=== PATIENT | female | born 1935 | race Caucasian/White ===

== ENCOUNTER 2017-02-19 19:07 | Inpatient (IN) | payer BC, MEDICARE ==
[2017-02-19] VITALS (7 sets, daily range): BP systolic 74–154; BP diastolic 41–68
[~2017-02-19] VITALS: Ht 160 cm; Wt 52.2 kg
--- NOTE | 2017-02-19 19:14 | NUR ---
pt [id number] fr home for c/o SOB x3 days, progressively getting worse w/ BG 300 in field, placed on 15 l/min O2 via NRB. AOx4, afebrile w/ resp even, labored, tachypneic,paced, tachycardic on continuous 02, pulse-ox w/ cardiac monitoring. Dr. Gunter at bedside for further eval.
--- NOTE | 2017-02-19 19:21 | NUR ---
EKG AT BEDSIDE.
[2017-02-19 19:24] LABS: BASOPHILS # (AUTO) 0.2 /CMM (0.0-0.2); EOSINOPHILS # (AUTO) 0.1 /CMM (0.0-0.7); EOSINOPHILS % (AUTO) 0.7 % (0.0-6.0); HEMATOCRIT 24 % (33-45); HEMOGLOBIN 7.8 g/dL (11.5-14.8); LYMPHOCYTES # (AUTO) 0.6 /CMM (0.8-4.8); LYMPHOCYTES % (AUTO) 4.8 % (20.0-44.0); MEAN CORPUSCULAR HEMOGLOBIN 31 PG (26.0-33.0); MEAN CORPUSCULAR HGB CONC 33 g/dl (31.0-36.0); MEAN CORPUSCULAR VOLUME 93 fL (82-100); MONOCYTES # (AUTO) 0.9 /CMM (0.1-1.30); MONOCYTES % (AUTO) 7.5 % (2.0-12.0); NEUTROPHILS # (AUTO) 10.4 /CMM (1.8-8.9); PLATELET COUNT (AUTO) 156 /CMM (150-450); RDW COEFFICIENT OF VARIATION 18.4 (11.5-15.0); RED BLOOD CELL COUNT(AUTO) 2.58 MIL/uL (4.0-5.2); WHITE BLOOD COUNT (AUTO) 12.2 K/uL (4.3-11.0)
--- NOTE | 2017-02-19 19:24 | NUR ---
CXR at bedside. PAPER MAKING MACHINE OPERATOR at bedside for placement on bipap.
--- NOTE | 2017-02-19 19:28 | NUR ---
BILL DISTRIBUTOR at bedside for breathing tx. HOB elevated, on continuous monitoring.
[2017-02-19] MEDS ORDERED: IPRATROPIUM NEB FS 0.5 MG/2.5 ML AMPUL.NEB NEB ONE (19:30)
[2017-02-19] MEDS ORDERED: ALBUTEROL FS 2.5 MG/3 ML VIAL.NEB NEB ONE (19:30)
[2017-02-19 19:35] LABS: INR 1.15 (0.87-1.13); PROTHROMBIN TIME 12.1 SECS (9.5-12.7)
[2017-02-19] MEDS ORDERED: ALBUTEROL FS 2.5 MG/3 ML VIAL.NEB ONE (19:35)
[2017-02-19] MEDS ORDERED: IPRATROPIUM NEB FS 0.5 MG/2.5 ML AMPUL.NEB ONE (19:35)
[2017-02-19 19:38] LABS: ALANINE AMINOTRANSFERASE 20 U/L (12-78); ALKALINE PHOSPHATASE 194 U/L (46-116); ASPARTATE AMINOTRANSFERASE 27 U/L (15-37); BILIRUBIN,DIRECT 0.2 mg/dL (0.0-0.2); BILIRUBIN,TOTAL 0.7 mg/dL (0.2-1.0); CALCIUM, SERUM 8.4 mg/dL (8.5-10.1); CARBON DIOXIDE 19 mmol/L (21-32); CHLORIDE 87 mmol/L (98-107); CREATININE 3.2 mg/dL (0.6-1.3); GLUCOSE 285 mg/dL (74-106); POTASSIUM 5.8 mmol/L (3.5-5.1); TOTAL PROTEIN, SERUM 6.5 g/dL (6.4-8.2)
[2017-02-19 19:40] LABS: TROPONIN I 0.088 ng/mL (0.00-0.056)
[2017-02-19 19:41] LABS: SODIUM SERUM 117 mmol/L (136-145); UREA NITROGEN, BLOOD 80 mg/dL (7-18)
--- NOTE | 2017-02-19 19:43 | NUR ---
Eric TRAY ROOM WORKER at bedside for eval.
--- NOTE | 2017-02-19 19:49 | NUR ---
ICU 259
[2017-02-19] MEDS ORDERED: NITROGLYCERIN PACKET 1 GM PACKET ONE (19:53)
[2017-02-19] MEDS ORDERED: DEXTROSE 50%-WATER 50 ML DISP.SYRIN ONE (19:53)
[2017-02-19] MEDS ORDERED: ISOS30TA6 PO (19:54)
[2017-02-19] MEDS ORDERED: FURO20TA4 PO (19:54)
[2017-02-19] MEDS ORDERED: CARV40CP PO (19:54)
[2017-02-19] MEDS ORDERED: LIRA0.6P2 SUBCUT (19:54)
[2017-02-19] MEDS ORDERED: PRAM0.253 PO (19:54)
[2017-02-19] MEDS ORDERED: DULO20CA PO (19:54)
[2017-02-19] MEDS ORDERED: INSULIN REGULAR, HUMAN 100 UNIT/ML 10 ML VIAL ONE (19:54)
[2017-02-19] MEDS ORDERED: VALS40TA4 PO (19:54)
[2017-02-19] MEDS ORDERED: ALLO100T PO (19:54)
[2017-02-19] MEDS ORDERED: CLOP75TA2 PO (19:54)
[2017-02-19] MEDS ORDERED: ATOR20TA PO (19:54)
[2017-02-19] MEDS ORDERED: LINA5TAB PO (19:54)
[2017-02-19] MEDS ORDERED: Calcium Gluconate 0.465 MEQ/ML VIAL IV ONE (19:55)
[2017-02-19] MEDS ORDERED: Calcium Gluconate 1GM/10ML 4.65 MEQ in IV D5W 50 ML IV ONE (20:00)
[2017-02-19] MEDS ORDERED: INSULIN REGULAR, HUMAN 100 UNIT/ML 10 ML VIAL IV ONE (20:00)
[2017-02-19] MEDS ORDERED: SODIUM BICARBONATE SYR 50 MEQ/50 ML DISP.SYRIN IV ONE (20:00)
[2017-02-19] MEDS ORDERED: DEXTROSE 50%-WATER 50 ML DISP.SYRIN IV ONE (20:00)
[2017-02-19] MEDS ORDERED: NITROGLYCERIN PACKET 1 GM PACKET TOP ONE (20:00)
[2017-02-19] MEDS ORDERED: FUROSEMIDE 40 MG/4 ML VIAL ONE (20:26)
[2017-02-19] MEDS ORDERED: ASPIRIN 325 MG TABLET ONE (20:26)
[2017-02-19] MEDS ORDERED: ACETAMINOPHEN 650 MG/SUPP.RECT RC PRN (20:30)
[2017-02-19] MEDS ORDERED: ONDANSETRON HCL/PF 4 MG/2 ML VIAL IVP PRN (20:30)
[2017-02-19] MEDS ORDERED: NOREPINEPHRINE 8 MG in IV D5W 500 ML IV PRN (20:30)
[2017-02-19] MEDS ORDERED: ASPIRIN 325 MG TABLET PO ONE (20:30)
[2017-02-19] MEDS ORDERED: FUROSEMIDE 20 MG/2 ML VIAL IV SCH (20:30)
--- NOTE | 2017-02-19 20:38 | NUR ---
Report given to MATTHEW Kaminski for CAILIN.
[2017-02-19] MEDS ORDERED: DEXTROSE 50%-WATER 50 ML DISP.SYRIN IV PRN (21:00)
--- NOTE | 2017-02-19 21:00 | NUR ---
DISABILITY MANAGER -REC'D PT. VIA [facility]QU[facility] FROM [facility] FOR SOB X 3 DAYS. PT. IS A&OX3, HAS LEFT C/W PACER & IS 100% V PACING ON BARRER AND TACKER. NO C/P,NO S/S OF DISTRESS NOTED. PT. WAS GIVEN A QUICK BEDBATH UPON ARRIVAL W/SKIN PICTURE TAKEN TO SACRAL AREA. DOCUMENTED. AFEBRILE. PIV'S TO LT. & RT. HANDS-BOTH PATENT TO FLUSH. PT.IS DIAPERED. NPO. BIPAP INTACT W/SETTINGS OF I:E=9/5,40%,RATE=7. WHEEZING & CRACKLES THROUGHOUT ALL LOBES NOTED. RT.YONATAN AT BS. ABD. IS UNUSUALLY LARGE/NOT FIRM/NORMAL BS'S X 4 QUAD. NON PITTING EDEMA TO BILAT.FEET/ANKLES/WITH DISCOLORATION. LIPITOR ADM. & ROCEPHIN IVPB ADM. CONT. POC.
--- NOTE | 2017-02-19 21:14 | NUR ---
PT RECEIVED ON BIPAP. PT IS AWAKE AND ALERT NO DISTRESS. PT TOLERATING BIPAP SETTINGS. WILL CONTINUE TO MONITOR.
[2017-02-19] MEDS ORDERED: ATORVASTATIN 10 MG TABLET ONE (21:23)
[2017-02-19] MEDS ORDERED: CEFTRIAXONE 1 G VIAL ONE (21:24)
[2017-02-19] MEDS: CEFTRIAXONE 1 G in IV D5W 50 ML IV SCH (21:26)
[2017-02-19] MEDS: ATORVASTATIN 10 MG TABLET PO SCH (21:27)
[2017-02-19] MEDS ORDERED: INSULIN REGULAR, HUMAN 100 UNIT/ML 3 ML VIAL ONE (23:09)
[2017-02-19] MEDS: INSULIN REGULAR, HUMAN 100 UNIT/ML 3 ML VIAL SQ PRN (23:49)
[2017-02-19] MEDS: BLOOD SUGAR DIAGNOSTIC 1 EACH STRIP IN SCH (23:50)
[2017-02-19 23:58] LABS: CALCIUM, SERUM 8.5 mg/dL (8.5-10.1); CARBON DIOXIDE 22 mmol/L (21-32); CHLORIDE 90 mmol/L (98-107); CREATININE 3.1 mg/dL (0.6-1.3); GLUCOSE 248 mg/dL (74-106); POTASSIUM 5.2 mmol/L (3.5-5.1); SODIUM SERUM 121 mmol/L (136-145); UREA NITROGEN, BLOOD 78 mg/dL (7-18)
[2017-02-20] VITALS (36 sets, daily range): BP systolic 99–131; BP diastolic 32–82
[2017-02-20 00:05] LABS: TROPONIN I 0.086 ng/mL (0.00-0.056)
[2017-02-20 05:03] LABS: BASOPHILS % (AUTO) 0.2 % (0.0-2.0); HEMATOCRIT 21 % (33-45); HEMOGLOBIN 7.2 g/dL (11.5-14.8); LYMPHOCYTES # (AUTO) 0.7 /CMM (0.8-4.8); LYMPHOCYTES % (AUTO) 7.2 % (20.0-44.0); MEAN CORPUSCULAR HEMOGLOBIN 32 PG (26.0-33.0); MEAN CORPUSCULAR HGB CONC 34 g/dl (31.0-36.0); MEAN CORPUSCULAR VOLUME 92 fL (82-100); MONOCYTES # (AUTO) 0.9 /CMM (0.1-1.30); MONOCYTES % (AUTO) 9.1 % (2.0-12.0); NEUTROPHILS # (AUTO) 7.9 /CMM (1.8-8.9); NEUTROPHILS % (AUTO) 83.5 % (43.0-81.0); PLATELET COUNT (AUTO) 143 /CMM (150-450); RDW COEFFICIENT OF VARIATION 19.4 (11.5-15.0); RED BLOOD CELL COUNT(AUTO) 2.29 MIL/uL (4.0-5.2); WHITE BLOOD COUNT (AUTO) 9.4 K/uL (4.3-11.0)
[2017-02-20 05:26] LABS: ALANINE AMINOTRANSFERASE 20 U/L (12-78); ALBUMIN 2.6 g/dL (3.4-5.0); ALKALINE PHOSPHATASE 165 U/L (46-116); ASPARTATE AMINOTRANSFERASE 24 U/L (15-37); BILIRUBIN,TOTAL 0.4 mg/dL (0.2-1.0); CALCIUM, SERUM 8.5 mg/dL (8.5-10.1); CARBON DIOXIDE 25 mmol/L (21-32); CHLORIDE 92 mmol/L (98-107); CREATININE 2.9 mg/dL (0.6-1.3); GLUCOSE 132 mg/dL (74-106); MAGNESIUM 1.7 mg/dL (1.8-2.4); POTASSIUM 5.2 mmol/L (3.5-5.1); SODIUM SERUM 124 mmol/L (136-145); TOTAL PROTEIN, SERUM 6.2 g/dL (6.4-8.2)
[2017-02-20 05:33] LABS: UREA NITROGEN, BLOOD 86 mg/dL (7-18)
[2017-02-20 05:34] LABS: THYROID STIMULATING HORMONE 1.188 uIU/mL (0.358-3.74)
[2017-02-20] MEDS: INSULIN REGULAR, HUMAN 100 UNIT/ML 3 ML VIAL SQ PRN ×3 (06:13→18:06)
[2017-02-20] MEDS: BLOOD SUGAR DIAGNOSTIC 1 EACH STRIP IN SCH ×4 (06:14→23:01)
--- NOTE | 2017-02-20 07:20 | NUR ---
ICU INITIAL NOTE RECEIVED PT IN ASLEEP, EASY TO AROUSE, ABLE TO ANSWER QUESTIONS, FOLLOWS COMMANDS AT TIMES, PT IS ON BEDSIDE MONITOR SHOWING SR W/ 100% VPACING @ 80'S BPM, NO C/O OF DISCOMFORT OR CHEST PAIN AT THIS TIME, PT IS RA, SATING WELL, NO S/S OF RESP.DISTRESS OR SOB NOTED AT THIS TIME, PT HAS L HAND #18G,SL, R HAND #20G,SL,C/D/I/PATENT, FLUSHING WELL, NO S/S OF INFECTION/ INFILTRATION NOTED AT THIS TIME, PT IS NOTED WITH SKIN ISSUES AT THIS TIME, PT IS CURRENTLY NPO AT THIS TIME, ALL NEEDS MET AT THIS TIME, ALL SAFETY MEASURES IN PLACE AT ALL TIMES, CALL LIGHT WITHIN EASY REACH, WILL MONITOR PT CLOSELY FOR CHANGES
[2017-02-20] MEDS: METOPROLOL TARTRATE 25 MG TABLET PO SCH ×2 (09:00→21:00)
[2017-02-20] MEDS ORDERED: PANTOPRAZOLE 40 MG VIAL IV SCH (09:00)
[2017-02-20] MEDS: ISOSORBIDE MONONITRATE (30MG) 30 MG TAB.SR.24H PO SCH (09:00)
--- NOTE | 2017-02-20 09:25 | NUR ---
ICU NOTE DR. MACHADO MADE ROUNDS, AWARE OF ALL LABS AND RESULTS, NO NEW ORDERS AT THIS TIME.
--- NOTE | 2017-02-20 09:26 | NUR ---
ICU NOTE DR. PALOMO MADE ROUNDS, AWARE OF ALL LABS AND RESULTS, NEW ORDERS ACK
[2017-02-20] MEDS ORDERED: Magnesium 1GM/D5W 100ML PREMIX 100 ML IV SCH (09:30)
[2017-02-20] MEDS: FAMOTIDINE/PF INJ 20 MG/2 ML VIAL IV SCH ×2 (09:32→22:44)
[2017-02-20] MEDS: DULOXETINE HCL 20 MG CAPSULE.DR PO SCH (09:32)
[2017-02-20] MEDS: ASPIRIN 325 MG TABLET PO SCH (09:32)
[2017-02-20] MEDS: CLOPIDOGREL BISULFATE 75 MG TABLET PO SCH (09:32)
[2017-02-20 09:46] LABS: TROPONIN I 0.074 ng/mL (0.00-0.056)
[2017-02-20] MEDS: Magnesium 1GM/D5W 100ML PREMIX 100 ML IV SCH ×2 (09:58→11:25)
[2017-02-20 12:55] LABS: BASOPHILS % (AUTO) 0.1 % (0.0-2.0); EOSINOPHILS # (AUTO) 0.1 /CMM (0.0-0.7); EOSINOPHILS % (AUTO) 1.4 % (0.0-6.0); HEMATOCRIT 22 % (33-45); HEMOGLOBIN 7.2 g/dL (11.5-14.8); LYMPHOCYTES # (AUTO) 0.4 /CMM (0.8-4.8); LYMPHOCYTES % (AUTO) 4.1 % (20.0-44.0); MEAN CORPUSCULAR HEMOGLOBIN 31 PG (26.0-33.0); MEAN CORPUSCULAR HGB CONC 33 g/dl (31.0-36.0); MEAN CORPUSCULAR VOLUME 93 fL (82-100); MONOCYTES # (AUTO) 0.8 /CMM (0.1-1.30); MONOCYTES % (AUTO) 7.7 % (2.0-12.0); NEUTROPHILS % (AUTO) 86.7 % (43.0-81.0); PLATELET COUNT (AUTO) 144 /CMM (150-450); RDW COEFFICIENT OF VARIATION 19.4 (11.5-15.0); RED BLOOD CELL COUNT(AUTO) 2.34 MIL/uL (4.0-5.2); WHITE BLOOD COUNT (AUTO) 10.4 K/uL (4.3-11.0)
--- NOTE | 2017-02-20 13:30 | NUR ---
ICU NOTE [employer] REP CAME AND DID DEVICE CHECK, REP WILL CONTACT DR. PALOMO WITH RESULTS AND CHANGES
--- NOTE | 2017-02-20 13:49 | NUR ---
WOUND CARE CONSULT: PT PRESENTS WITH SACRAL INTACT DEEP TISSUE INJURY WELL DISTAL SACRAL STAGE 2 ULCER, PRESENT ON ADMISSION. PT NOTED TO HAVE RESOLVING EDEMA TO LOWER EXTREMITIES. FIRST STEP MATTRESS ORDERED. ALL SKIN PROTECTION AND WOUND RECOMMENDATIONS DISCUSSED WITH NURSING STAFF. WILL SEE PRN. TURK IN AGREEMENT WITH PLAN OF CARE. Addendum: 02/20/17 at 1351 by KARTHIKEYAN MORENO WNDNU Amended: Links added.
--- NOTE | 2017-02-20 14:15 | NUR ---
ICU NOTE URINE COLLECTED AND SENT TO LAB
[2017-02-20 14:53] LABS: CREATININE, URINE 44.2 MG/DL (30.0-125.0); URINE TOTAL PROTEIN 20.5 mg/dL (0-11.9)
[2017-02-20] MEDS: Z GUARD REMEDY 2 OZ OINT TP PRN (16:37)
[2017-02-20] MEDS: HYDROGEL DRESSING 90 GM TUBE TP PRN (16:37)
[2017-02-20] MEDS: Z GUARD REMEDY 2 OZ OINT TP SCH (16:37)
[2017-02-20] MEDS: HYDROGEL DRESSING 90 GM TUBE TP SCH (16:37)
--- NOTE | 2017-02-20 17:50 | NUR ---
ICU NOTE KCI MATTRESS NOT PUT ON BECAUSE OF PT SAFETY, PT GETS OUT OF BED AND USES BEDSIDE COMMODE.
--- NOTE | 2017-02-20 18:28 | NUR ---
ICU NOTE SPOKE TO ANDREW SCHILLING NP REGARDING LOWER EXTREMITY US RESULTS, ORDERED HEPARIN SUBQ 5000U Q12H, INFORMED HER OF LABS, OKAY TO GIVE, IRON PANEL ORDERED WELL
[2017-02-20] MEDS: HEPARIN SODIUM, PORCINE 5000 UNITS/1 ML VIAL SQ SCH (18:31)
--- NOTE | 2017-02-20 19:44 | NUR ---
MANUFACTURING TEST TECHNICIAN. RECEIVED THE PT WITH TACHYPNEIC, RATE IS 35, PT C/O SHORTNESS OF BREATH. PT GETTING OXYGEN 2L NC. CALLED YARN SPINNER KAREN. NEW ORDER RECEIVED. SHRIMP PEELING MACHINE TENDER SHOWING V PACING. HOB ELEVATED. IV RT HAND 18G, WILL CONTINUE TO MONITOR VITALS.
--- NOTE | 2017-02-20 19:47 | NUR ---
LINEN GRADER. CALLED RT MCNULTY FOR ABG AT 193.
--- NOTE | 2017-02-20 20:09 | NUR ---
RT HAMLET AT BED SIDE TRYING TO TROW ABG. PT IS VERY HAD STICK. BREATHING WITH ACCESSARY MUSCLES. BIPAP STARTED 16/, RATE 8, FIO2 35%. WILL CONTINUE TO MONITOR.
[2017-02-20] MEDS: CEFTRIAXONE 1 G in IV D5W 50 ML IV SCH (22:43)
[2017-02-20] MEDS: ATORVASTATIN 10 MG TABLET PO SCH (22:43)
[2017-02-21] VITALS (46 sets, daily range): BP systolic 94–135; BP diastolic 47–86
--- NOTE | 2017-02-21 03:24 | NUR ---
SAUSAGE LINKER. AM CARE, ORAL CARE, BED BATH GIVEN. LINEN CHANGED. REMAINING SAME BIPAP SETTINGS TOLERATED WELL. SAT 99%. HOB ELEVATED. TURN AND REPOSITION Q2H. WILL CONTINUE TO MONITOR VITALS.
[2017-02-21 04:44] LABS: BASOPHILS % (AUTO) 0.3 % (0.0-2.0); EOSINOPHILS # (AUTO) 0.1 /CMM (0.0-0.7); EOSINOPHILS % (AUTO) 0.9 % (0.0-6.0); HEMATOCRIT 21 % (33-45); HEMOGLOBIN 7.1 g/dL (11.5-14.8); LYMPHOCYTES # (AUTO) 0.6 /CMM (0.8-4.8); LYMPHOCYTES % (AUTO) 5.8 % (20.0-44.0); MEAN CORPUSCULAR HEMOGLOBIN 31 PG (26.0-33.0); MEAN CORPUSCULAR HGB CONC 34 g/dl (31.0-36.0); MEAN CORPUSCULAR VOLUME 93 fL (82-100); MONOCYTES # (AUTO) 0.8 /CMM (0.1-1.30); MONOCYTES % (AUTO) 8.1 % (2.0-12.0); NEUTROPHILS # (AUTO) 8.8 /CMM (1.8-8.9); NEUTROPHILS % (AUTO) 84.9 % (43.0-81.0); PLATELET COUNT (AUTO) 165 /CMM (150-450); RDW COEFFICIENT OF VARIATION 19.7 (11.5-15.0); RED BLOOD CELL COUNT(AUTO) 2.27 MIL/uL (4.0-5.2); WHITE BLOOD COUNT (AUTO) 10.4 K/uL (4.3-11.0)
[2017-02-21 05:17] LABS: CALCIUM, SERUM 8.4 mg/dL (8.5-10.1); CARBON DIOXIDE 24 mmol/L (21-32); CHLORIDE 91 mmol/L (98-107); CREATININE 3.2 mg/dL (0.6-1.3); GLUCOSE 191 mg/dL (74-106); MAGNESIUM 2.2 mg/dL (1.8-2.4); PHOSPHORUS 4.2 mg/dL (2.5-4.9); POTASSIUM 5.4 mmol/L (3.5-5.1); SODIUM SERUM 122 mmol/L (136-145)
[2017-02-21] MEDS: BLOOD SUGAR DIAGNOSTIC 1 EACH STRIP IN SCH ×3 (05:17→18:09)
[2017-02-21 05:20] LABS: UREA NITROGEN, BLOOD 87 mg/dL (7-18)
[2017-02-21] MEDS: INSULIN REGULAR, HUMAN 100 UNIT/ML 3 ML VIAL SQ PRN ×3 (05:20→18:50)
[2017-02-21 05:21] LABS: IRON, SERUM 13 ug/dl (50-175); TOTAL IRON BINDING CAPACITY 158 ug/dl (250-450)
[2017-02-21 06:18] LABS: EOSINOPHILS % (MANUAL) 2 % (0-4); LYMPHOCYTES % (MANUAL) 3 % (16-48); MONOCYTES % (MANUAL) 4 % (0-11.0); NEUTROPHILS % (MANUAL) 91 (42-76)
--- NOTE | 2017-02-21 07:44 | NUR ---
WT NOT TAKEN. BED SCALE NOT WORKING
--- NOTE | 2017-02-21 08:30 | NUR ---
PT TRANSFERRED ONTO NEW BED. WEIGH 138 LBS. REPORTED TO CHARGE NURSE.
--- NOTE | 2017-02-21 08:50 | NUR ---
PT STATES SHR NEEDS BREATHING TX, NO ORDER AT THIS TIME. DR MACHADO NOTIFIED MEANWHILE PT PLACED ON BIPAP WITH PREVIOUS SETTINGS. SAT 96%
[2017-02-21] MEDS: HEPARIN SODIUM, PORCINE 5000 UNITS/1 ML VIAL SQ SCH ×2 (08:55→20:59)
[2017-02-21] MEDS: ASPIRIN 325 MG TABLET PO SCH (08:55)
[2017-02-21] MEDS: FAMOTIDINE/PF INJ 20 MG/2 ML VIAL IV SCH ×2 (08:55→20:57)
[2017-02-21] MEDS: ISOSORBIDE MONONITRATE (30MG) 30 MG TAB.SR.24H PO SCH (08:55)
[2017-02-21] MEDS: DULOXETINE HCL 20 MG CAPSULE.DR PO SCH (08:55)
[2017-02-21] MEDS: CLOPIDOGREL BISULFATE 75 MG TABLET PO SCH (08:55)
[2017-02-21] MEDS: METOPROLOL TARTRATE 25 MG TABLET PO SCH ×2 (08:56→20:58)
[2017-02-21] MEDS: HYDROGEL DRESSING 90 GM TUBE TP PRN (08:57)
[2017-02-21] MEDS: Z GUARD REMEDY 2 OZ OINT TP PRN (08:57)
[2017-02-21] MEDS: HYDROGEL DRESSING 90 GM TUBE TP SCH (08:58)
[2017-02-21] MEDS: Z GUARD REMEDY 2 OZ OINT TP SCH (08:58)
[2017-02-21] MEDS ORDERED: BUMETANIDE INJ 16 MG in IV NS 0.9% 16 ML IV ONE (09:00)
--- NOTE | 2017-02-21 09:15 | NUR ---
BUMEX GTT INITIATED K 5.2 WILL RECHECK BMP POST BUMEX GTT.
--- NOTE | 2017-02-21 17:00 | NUR ---
BEST ATTEMPT IS MADE TO OBTAIN URINE CLEAN CATCH, SPECIMEN SENT.
[2017-02-21 18:50] LABS: CALCIUM, SERUM 8.3 mg/dL (8.5-10.1); CARBON DIOXIDE 23 mmol/L (21-32); CHLORIDE 89 mmol/L (98-107); CREATININE 3.5 mg/dL (0.6-1.3); GLUCOSE 200 mg/dL (74-106); POTASSIUM 5.2 mmol/L (3.5-5.1); SODIUM SERUM 121 mmol/L (136-145)
[2017-02-21 18:57] LABS: APPEARANCE,URINE CLEAR (CLEAR); BILIRUBIN,URINE NEGATIVE (NEGATIVE); BLOOD, URINE NEGATIVE Ery/uL (NEGATIVE); COLOR,URINE YELLOW (YELLOW); KETONES,URINE NEGATIVE (NEGATIVE); LEUKOCYTE ESTERASE ,URINE NEGATIVE (NEGATIVE); NITRITE, URINE NEGATIVE (NEGATIVE); PH,URINE 5.5 (5.0-8.0); PROTEIN,URINE NEGATIVE (NEGATIVE); UGLUCOSE NEGATIVE (NEGATIVE); UROBILINOGEN,URINE 0.2 EU/dL (0.2)
[2017-02-21 18:59] LABS: UREA NITROGEN, BLOOD 92 mg/dL (7-18)
--- NOTE | 2017-02-21 19:00 | NUR ---
LAB REPORTED BUN 92, WILL NOTIFY DR MORALES.
[2017-02-21 19:56] LABS: CREATININE, URINE 38.2 MG/DL (30.0-125.0); URINE TOTAL PROTEIN 12.4 mg/dL (0-11.9)
--- NOTE | 2017-02-21 20:00 | NUR ---
ADMINISTRATIVE LIBRARY ASSISTANT - NOTES - RECEIVED PT IN BED, ALERT AND ORIENTED X4, WEAK BLE. PT IS V PACING W PACEMAKER HR 70S-80S PT IS ON 2L NC TOLERATING WELL, PT IS COMPLAINING OF SORE THROAT WILL ASK MD FOR LOZENGE. PT IS ON CARDIAC AND CONSISTENT CARB DIET, ACCUCHECK Q6, ABLE TO FEED SELF. PT HAS L HAND 18G AND R HAND 20G IV, WHICH IS TENDER, WILL ASK FOR MIDLINE IV. WILL CONTINUE TO MONITOR
--- NOTE | 2017-02-21 20:20 | NUR ---
DR WISEMAN NOTIFIED OF CRITICAL LAB VALUES, BUN 92, AND OBTAINED ORDER FOR LOZENGE CEPACOL FOR PT SORE THROAT
--- NOTE | 2017-02-21 20:30 | NUR ---
PT ASKED TO GET UP TO GO TO THE BEDSIDE COMMODE TO URINATE, I HELPED THE PT TO THE COMMODE BUT SHE WAS VERY WEAK ON HER FEET. WHEN I PLACED THE PT BACK IN BED, HER O2SAT DROPPED TO 92 AND SHE WAS SOB, I PLACED HER BACK ON O2 NASAL CANNULA AND SHE WENT BACK UP TO 100%
[2017-02-21] MEDS: CEFTRIAXONE 1 G in IV D5W 50 ML IV SCH (20:57)
[2017-02-21 21:03] LABS: EOSINOPHIL,URINE None Seen
[2017-02-21] MEDS: ATORVASTATIN 10 MG TABLET PO SCH (21:03)
[2017-02-21] MEDS: MENTHOL/CETYLPYRD (CEPACOL) 1 LOZ LOZENGE PO PRN (21:19)
--- NOTE | 2017-02-21 23:20 | NUR ---
PT ASKED IF SHE WANTS A BATH TONIGHT, SHE REFUSED, SAYING SHE HAD A BATH AT APPROX 1800 AND SHE WANTS TO SLEEP, I TOLD HER IF SHE WANTS A BATH THAT I WILL DO IT FOR HER WHEN SHE WANTS
[2017-02-22] VITALS (38 sets, daily range): BP systolic 98–145; BP diastolic 41–97
[2017-02-22] MEDS: BLOOD SUGAR DIAGNOSTIC 1 EACH STRIP IN SCH ×5 (00:06→23:55)
[2017-02-22] MEDS: INSULIN REGULAR, HUMAN 100 UNIT/ML 3 ML VIAL SQ PRN ×4 (00:09→18:05)
--- NOTE | 2017-02-22 03:21 | NUR ---
PT URINATED IN BED MUÑOZ AND THE URINE SPILLED, SO I GAVE HER A FULL BATH AND AND CHANGED ALL OF HER SHEETS
--- NOTE | 2017-02-22 04:17 | NUR ---
PT ACCURATELY WEIGHED 130.5 LBS. PT STOOD UP IN ORDER TO ZERO BED FOR AN ACCURATE WEIGHT. BED ZEROED WITH BOTTOM SHEET, 1 TOMASA, TOP SHEET AND ONE PILLOW AND KCI MATTRESS.
[2017-02-22 05:13] LABS: BASOPHILS % (AUTO) 0.2 % (0.0-2.0); EOSINOPHILS # (AUTO) 0.2 /CMM (0.0-0.7); EOSINOPHILS % (AUTO) 1.9 % (0.0-6.0); LYMPHOCYTES # (AUTO) 0.6 /CMM (0.8-4.8); LYMPHOCYTES % (AUTO) 6.3 % (20.0-44.0); MEAN CORPUSCULAR HEMOGLOBIN 31 PG (26.0-33.0); MEAN CORPUSCULAR HGB CONC 33 g/dl (31.0-36.0); MEAN CORPUSCULAR VOLUME 93 fL (82-100); MONOCYTES # (AUTO) 0.9 /CMM (0.1-1.30); MONOCYTES % (AUTO) 9.8 % (2.0-12.0); NEUTROPHILS # (AUTO) 7.7 /CMM (1.8-8.9); NEUTROPHILS % (AUTO) 81.8 % (43.0-81.0); PLATELET COUNT (AUTO) 194 /CMM (150-450); RDW COEFFICIENT OF VARIATION 19.8 (11.5-15.0); RED BLOOD CELL COUNT(AUTO) 2.08 MIL/uL (4.0-5.2); WHITE BLOOD COUNT (AUTO) 9.4 K/uL (4.3-11.0)
[2017-02-22 05:27] LABS: ALANINE AMINOTRANSFERASE 20 U/L (12-78); ALBUMIN 2.3 g/dL (3.4-5.0); ALKALINE PHOSPHATASE 165 U/L (46-116); ASPARTATE AMINOTRANSFERASE 25 U/L (15-37); BILIRUBIN,TOTAL 0.4 mg/dL (0.2-1.0); CALCIUM, SERUM 8.5 mg/dL (8.5-10.1); CARBON DIOXIDE 21 mmol/L (21-32); CHLORIDE 91 mmol/L (98-107); CREATININE 3.5 mg/dL (0.6-1.3); GLUCOSE 149 mg/dL (74-106); MAGNESIUM 2.1 mg/dL (1.8-2.4); PHOSPHORUS 4.5 mg/dL (2.5-4.9); SODIUM SERUM 123 mmol/L (136-145); TOTAL PROTEIN, SERUM 5.6 g/dL (6.4-8.2)
[2017-02-22 05:28] LABS: UREA NITROGEN, BLOOD 95 mg/dL (7-18)
[2017-02-22 05:42] LABS: HEMATOCRIT 19 % (33-45); HEMOGLOBIN 6.4 g/dL (11.5-14.8)
--- NOTE | 2017-02-22 06:10 | NUR ---
CRITICAL LABS HEMOGLOBIN AND HEMATOCRIT NOTED, 6.4 AND 19. EPIC CALLED, AWAITING CALL BACK
[2017-02-22 06:12] LABS: EOSINOPHILS % (MANUAL) 1 % (0-4); LYMPHOCYTES % (MANUAL) 11 % (16-48); MONOCYTES % (MANUAL) 11 % (0-11.0); NEUTROPHILS % (MANUAL) 77 (42-76)
--- NOTE | 2017-02-22 06:40 | NUR ---
BETSY RICHARDSON CALLED AGAIN TO REPORT CRITICAL LAB RESULTS, AWAITING CALL BACK
[2017-02-22] MEDS ORDERED: BUMETANIDE INJ 16 MG in IV NS 0.9% 16 ML IV ONE (08:00)
[2017-02-22] MEDS: DULOXETINE HCL 20 MG CAPSULE.DR PO SCH (09:00)
--- NOTE | 2017-02-22 09:00 | NUR ---
PRBC IN PROGRESS, VSS.
[2017-02-22] MEDS: CLOPIDOGREL BISULFATE 75 MG TABLET PO SCH (09:22)
[2017-02-22] MEDS: ASPIRIN 325 MG TABLET PO SCH (09:22)
[2017-02-22] MEDS: FAMOTIDINE/PF INJ 20 MG/2 ML VIAL IV SCH ×2 (09:23→21:01)
[2017-02-22] MEDS: ISOSORBIDE MONONITRATE (30MG) 30 MG TAB.SR.24H PO SCH (09:23)
[2017-02-22] MEDS: METOPROLOL TARTRATE 25 MG TABLET PO SCH ×2 (09:24→21:02)
[2017-02-22] MEDS: LACTULOSE 10 G/15 ML UDC (PYXIS) PO PRN (09:25)
[2017-02-22] MEDS: HEPARIN SODIUM, PORCINE 5000 UNITS/1 ML VIAL SQ SCH ×2 (09:31→21:01)
[2017-02-22] MEDS: Z GUARD REMEDY 2 OZ OINT TP SCH (09:46)
[2017-02-22] MEDS: HYDROGEL DRESSING 90 GM TUBE TP SCH (09:46)
--- NOTE | 2017-02-22 10:00 | NUR ---
CLARTIFED WITH DR PIZARRO HE WANTS ONE NOTE UNIT OF PRBC, TWO UNITS TOTAL
--- NOTE | 2017-02-22 12:00 | NUR ---
PRBC COMPLETED VSS, PT AFEBRILE.
--- NOTE | 2017-02-22 13:00 | NUR ---
LAVONNE HERE TO SEE PT. UPDATED THAT PT NOTED TO HAVE OCCASIONAL RALES, DRY COUGH, NO SOB. OK TO CANCEL THE SECOND UNIT. LAB NOTIFIED.
[2017-02-22] MEDS: SOD FERRIC GLUC 125 MG in IV NS 0.9% 100 ML IV SCH (14:18)
[2017-02-22 15:03] LABS: ABG OXYGEN SATURATION 93.9 % (92.0-98.5); ABG PCO2 32.4 mmHg (35.0-45.0); ABG PH 7.411 (7.350-7.450); MetHb 0.5 % (0.0-1.5); O2Hb 92.5 % (94.0-97.0); PEEP,BG 5 cm H2O; SITE, ABG Left Radial; VENT MODE, BG ST 16/5 R8 35%
--- NOTE | 2017-02-22 20:00 | NUR ---
Received patient on bed A/O X 4.VS stable.V- paced 80's.Noted patient with sob on exertion. O2 2LNC in progress sating 96%.Reinforced teaching patient on 1000 ml fluid restriction/day. I's and O's monitored closely.Bumex drip infusing to killian midline.Site intact.Denies pain.Turned and repositioned.Continue monitoring.
[2017-02-22] MEDS: CEFTRIAXONE 1 G in IV D5W 50 ML IV SCH (21:01)
[2017-02-22] MEDS: ATORVASTATIN 10 MG TABLET PO SCH (22:30)
[2017-02-23] VITALS (25 sets, daily range): BP systolic 118–148; BP diastolic 27–95
--- NOTE | 2017-02-23 | NUR ---
Patient resting.VS stable.Denies any discomfort.Turned and repositioned.
[2017-02-23] MEDS: MENTHOL/CETYLPYRD (CEPACOL) 1 LOZ LOZENGE PO PRN ×3 (02:41→20:59)
[2017-02-23 04:35] LABS: BASOPHILS % (AUTO) 0.1 % (0.0-2.0); EOSINOPHILS # (AUTO) 0.3 /CMM (0.0-0.7); EOSINOPHILS % (AUTO) 3.6 % (0.0-6.0); HEMATOCRIT 25 % (33-45); HEMOGLOBIN 8.2 g/dL (11.5-14.8); LYMPHOCYTES # (AUTO) 0.7 /CMM (0.8-4.8); LYMPHOCYTES % (AUTO) 6.9 % (20.0-44.0); MEAN CORPUSCULAR HEMOGLOBIN 30 PG (26.0-33.0); MEAN CORPUSCULAR HGB CONC 33 g/dl (31.0-36.0); MEAN CORPUSCULAR VOLUME 90 fL (82-100); MONOCYTES # (AUTO) 1.2 /CMM (0.1-1.30); NEUTROPHILS # (AUTO) 7.2 /CMM (1.8-8.9); NEUTROPHILS % (AUTO) 76.4 % (43.0-81.0); PLATELET COUNT (AUTO) 211 /CMM (150-450); RDW COEFFICIENT OF VARIATION 21.8 (11.5-15.0); RED BLOOD CELL COUNT(AUTO) 2.74 MIL/uL (4.0-5.2); WHITE BLOOD COUNT (AUTO) 9.5 K/uL (4.3-11.0)
[2017-02-23 04:54] LABS: CALCIUM, SERUM 8.6 mg/dL (8.5-10.1); CARBON DIOXIDE 21 mmol/L (21-32); CHLORIDE 93 mmol/L (98-107); CREATININE 3.7 mg/dL (0.6-1.3); GLUCOSE 148 mg/dL (74-106); MAGNESIUM 2.1 mg/dL (1.8-2.4); PHOSPHORUS 4.8 mg/dL (2.5-4.9); POTASSIUM 4.5 mmol/L (3.5-5.1); SODIUM SERUM 125 mmol/L (136-145)
[2017-02-23 04:57] LABS: UREA NITROGEN, BLOOD 99 mg/dL (7-18)
[2017-02-23] MEDS: BLOOD SUGAR DIAGNOSTIC 1 EACH STRIP IN SCH ×4 (05:54→23:55)
[2017-02-23] MEDS: INSULIN REGULAR, HUMAN 100 UNIT/ML 3 ML VIAL SQ PRN ×4 (05:57→23:58)
--- NOTE | 2017-02-23 06:00 | NUR ---
Patient remains with sob when talking and with exertion.VS stable.Voiding well.Bathed and Complete linens changed.Turned and repositioned.No bm noted during the shift.Will endorse to am shift for stool collection.Blood sugar monitored and covered with ss.
--- NOTE | 2017-02-23 07:35 | NUR ---
STANDPIPE TENDER RECEIVED PATIENT FROM THE PREVIOUS SHIFT. PATIENT IS IN BED. RESTING COMFORTABLY. NO ACUTE DISTRESS NOTED. EVEN AND NON LABORED BREATHING PATTERN. ALERT AND ORIENTED X 4. AFEBRILE.2L NC AT THIS TIME. TURNED AND REPOSITIONED FOR COMFORT AND WOUND PREVENTION. WILL CONTINUE TO MONITOR AND PROVIDE CARE.
[2017-02-23] MEDS ORDERED: BUMETANIDE INJ 16 MG in IV NS 0.9% 16 ML IV ONE (09:00)
[2017-02-23] MEDS: ASPIRIN 325 MG TABLET PO SCH (09:33)
[2017-02-23] MEDS: FAMOTIDINE/PF INJ 20 MG/2 ML VIAL IV SCH ×2 (09:33→21:37)
[2017-02-23] MEDS: METOLAZONE 2.5 MG TABLET PO SCH (09:34)
[2017-02-23] MEDS: CLOPIDOGREL BISULFATE 75 MG TABLET PO SCH (09:34)
[2017-02-23] MEDS: METOPROLOL TARTRATE 25 MG TABLET PO SCH ×2 (09:34→20:43)
[2017-02-23] MEDS: Z GUARD REMEDY 2 OZ OINT TP SCH (09:35)
[2017-02-23] MEDS: DULOXETINE HCL 20 MG CAPSULE.DR PO SCH (09:35)
[2017-02-23] MEDS: HEPARIN SODIUM, PORCINE 5000 UNITS/1 ML VIAL SQ SCH ×2 (09:35→20:45)
[2017-02-23] MEDS: ISOSORBIDE MONONITRATE (30MG) 30 MG TAB.SR.24H PO SCH (09:35)
[2017-02-23] MEDS: HYDROGEL DRESSING 90 GM TUBE TP SCH (09:36)
--- NOTE | 2017-02-23 10:36 | NUR ---
SOLE SEAMER CALLED. DR. TSANG'S OFFICE FOR MEDICAL RECORDS. SPOKE TO AMANDA TO FAX THE RECORDS. CONSENT FAXED. DR. BECKMAN'S OFFICE PHONE [phone]. FAX [phone]. AWAITING REPLY.
[2017-02-23] MEDS: SOD FERRIC GLUC 125 MG in IV NS 0.9% 100 ML IV SCH (14:23)
--- NOTE | 2017-02-23 15:05 | NUR ---
EYELET ROW MARKER PATIENT IS IN BED. RESTING COMFORTABLY. NO ACUTE DISTRESS NOTED. EVEN AND NON LABORED BREATHING PATTERN. 1000CC/DAY FLUID RESTRICTION MAINTAINED. TURNED AND REPOSITIONED FOR COMFORT AND WOUND PREVENTION. WILL CONTINUE TO MONITOR AND PROVIDE CARE.
[2017-02-23] MEDS: LACTULOSE 10 G/15 ML UDC (PYXIS) PO PRN (19:11)
--- NOTE | 2017-02-23 19:30 | NUR ---
Received patient sitting in bed a/o x 3 [address].VS stable.V-paced.Hemodynamically stable. Denies pain or any discomfort.Respiration even and unlabored with sob on exertion.O2 2L NC on sating 96%.NS infusing tko via killian midline site intact.Safety precaution maintained with call light at bedside.Continue monitoring.
[2017-02-23] MEDS: CEFTRIAXONE 1 G in IV D5W 50 ML IV SCH (20:42)
--- NOTE | 2017-02-23 21:35 | NUR ---
Patient transferred to [facility] 118 Bed 1 per bed in stable condition with her belongings.Report given to Chintan Louis LVN.
--- NOTE | 2017-02-23 21:42 | NUR ---
TELE-1/BODY ARTIST RECEIVED PT IN ROOM 118-1 VIA BED ACCOMPANIED BY ICU STAFF. PT A/Ox3, O2 2L NASAL CANNULA, V-PACING 100% ON TELE. NO COMPLAINT OF PAIN. VSS AFEBRILE. PT EDUCATED THREAD MACHINE OPERATOR LIGHT USE AND ROOM ORIENTATION. BED IN LOWEST LOCKED POSITION. WILL CONTINUE TO MONITOR.
[2017-02-23] MEDS: ATORVASTATIN 10 MG TABLET PO SCH (22:21)
[2017-02-24] VITALS: BP 121/49
[2017-02-24 04:00] VITALS: BP 125/72
[2017-02-24] MEDS: BLOOD SUGAR DIAGNOSTIC 1 EACH STRIP IN SCH ×3 (06:22→17:40)
[2017-02-24] MEDS: MENTHOL/CETYLPYRD (CEPACOL) 1 LOZ LOZENGE PO PRN (06:22)
[2017-02-24] MEDS: INSULIN REGULAR, HUMAN 100 UNIT/ML 3 ML VIAL SQ PRN ×3 (06:26→17:45)
[2017-02-24 07:16] LABS: BASOPHILS % (AUTO) 0.1 % (0.0-2.0); EOSINOPHILS # (AUTO) 0.4 /CMM (0.0-0.7); EOSINOPHILS % (AUTO) 4.7 % (0.0-6.0); HEMATOCRIT 27 % (33-45); HEMOGLOBIN 9.2 g/dL (11.5-14.8); LYMPHOCYTES # (AUTO) 0.6 /CMM (0.8-4.8); MEAN CORPUSCULAR HEMOGLOBIN 31 PG (26.0-33.0); MEAN CORPUSCULAR HGB CONC 34 g/dl (31.0-36.0); MEAN CORPUSCULAR VOLUME 92 fL (82-100); MONOCYTES # (AUTO) 1.3 /CMM (0.1-1.30); MONOCYTES % (AUTO) 15.8 % (2.0-12.0); NEUTROPHILS # (AUTO) 5.8 /CMM (1.8-8.9); NEUTROPHILS % (AUTO) 72.4 % (43.0-81.0); PLATELET COUNT (AUTO) 228 /CMM (150-450); RDW COEFFICIENT OF VARIATION 21.7 (11.5-15.0); RED BLOOD CELL COUNT(AUTO) 2.97 MIL/uL (4.0-5.2)
--- NOTE | 2017-02-24 07:26 | NUR ---
RN INITIAL TELE NOTE REPORT RECEIVED FROM LIZY BALND SHIFT FOR CAILIN. PT A/O X 3. TELE V-PACING. IV KEVON MIDLINE PATENT FLUSHED AND INTACT. PT NC 2L NO C/O SOB. PAIN 0/10. WILL CONTINUE TO MONITOR CLOSELY. ALL SAFETY MEASURES IN PLACE.
[2017-02-24 07:35] LABS: ALANINE AMINOTRANSFERASE 17 U/L (12-78); ALBUMIN 2.4 g/dL (3.4-5.0); ALKALINE PHOSPHATASE 207 U/L (46-116); ASPARTATE AMINOTRANSFERASE 34 U/L (15-37); BILIRUBIN,TOTAL 0.4 mg/dL (0.2-1.0); CALCIUM, SERUM 8.9 mg/dL (8.5-10.1); CARBON DIOXIDE 22 mmol/L (21-32); CHLORIDE 95 mmol/L (98-107); CREATININE 3.9 mg/dL (0.6-1.3); GLUCOSE 142 mg/dL (74-106); MAGNESIUM 2.2 mg/dL (1.8-2.4); PHOSPHORUS 5.4 mg/dL (2.5-4.9); POTASSIUM 4.6 mmol/L (3.5-5.1); SODIUM SERUM 129 mmol/L (136-145); TOTAL PROTEIN, SERUM 6.3 g/dL (6.4-8.2)
[2017-02-24 08:00] VITALS: BP 138/48
[2017-02-24] MEDS: CLOPIDOGREL BISULFATE 75 MG TABLET PO SCH (08:05)
[2017-02-24] MEDS: ISOSORBIDE MONONITRATE (30MG) 30 MG TAB.SR.24H PO SCH (08:06)
[2017-02-24] MEDS: FAMOTIDINE/PF INJ 20 MG/2 ML VIAL IV SCH ×2 (08:06→22:04)
[2017-02-24] MEDS: METOLAZONE 2.5 MG TABLET PO SCH (08:06)
[2017-02-24] MEDS: METOPROLOL TARTRATE 25 MG TABLET PO SCH ×2 (08:06→22:01)
[2017-02-24] MEDS: DULOXETINE HCL 20 MG CAPSULE.DR PO SCH ×3 (08:06→08:25)
[2017-02-24] MEDS: Z GUARD REMEDY 2 OZ OINT TP SCH (08:07)
[2017-02-24] MEDS: HYDROGEL DRESSING 90 GM TUBE TP SCH (08:07)
[2017-02-24 08:08] LABS: UREA NITROGEN, BLOOD 117 mg/dL (7-18)
[2017-02-24] MEDS: HEPARIN SODIUM, PORCINE 5000 UNITS/1 ML VIAL SQ SCH ×2 (08:14→22:02)
[2017-02-24] MEDS: ASPIRIN 325 MG TABLET PO SCH (08:18)
[2017-02-24] MEDS ORDERED: BISACODYL SUPP (10 MG) 10 MG/SUPP.RECT SUPP.RECT RC STA (11:23)
[2017-02-24] MEDS ORDERED: LACTULOSE 10 G/15 ML UDC (PYXIS) PO ONE (11:30)
[2017-02-24 12:00] VITALS: BP 136/49
[2017-02-24] MEDS: SENNOSIDES 8.6 MG TABLET PO SCH ×2 (12:48→22:03)
[2017-02-24] MEDS: SOD FERRIC GLUC 125 MG in IV NS 0.9% 100 ML IV SCH (14:03)
[2017-02-24 16:00] VITALS: BP 133/49
--- NOTE | 2017-02-24 19:33 | NUR ---
RN CLOSING NOTE REPORT GIVEN TO MIRIAM PM SHIFT FOR CAILIN. PT A/O X 3. TELE V-PACING. IV KEVON MIDLINE PATENT FLUSHED AND INTACT. PT NC 2L NO C/O SOB. PAIN 0/10. PT CLEAN AND DRY. BOWEL CLEANSE PT IS FEELING BETTER. ALL SAFETY MEASURES IN PLACE.
[2017-02-24 20:00] VITALS: BP 157/66
--- NOTE | 2017-02-24 20:00 | NUR ---
RN NOTES RECEIVED PATIENT IN BED. NO RESPIRATORY DISTRESS OR SHORTNESS OF BREATH. BREATHING EVEN AND UNLABORED. ON 2LPM O2 VIA NASAL CANULA,TOLERATING WELL WITH 02SAT OF 97%. ALERT AND ORIENTED. ABLE TO VERBALIZE NEEDS. NO COMPLAINT OF PAIN OR DISCOMFORT. KEPT CLEAN AND DRY WILL CONTINUE TO MONITOR.
[2017-02-24] MEDS: ATORVASTATIN 10 MG TABLET PO SCH (22:02)
[2017-02-24] MEDS: CEFTRIAXONE 1 G in IV D5W 50 ML IV SCH (22:03)
[2017-02-25] MEDS: BLOOD SUGAR DIAGNOSTIC 1 EACH STRIP IN SCH ×4 (00:21→17:49)
[2017-02-25] MEDS: INSULIN REGULAR, HUMAN 100 UNIT/ML 3 ML VIAL SQ PRN ×4 (00:26→17:50)
[2017-02-25 04:00] VITALS: BP_SYST 112; BP_SYST 134; BP_DIAS 46; BP_DIAS 72
--- NOTE | 2017-02-25 06:58 | NUR ---
RN CLOSING NOTES RESTING COMFORTABLY IN BED WITH NO RESPIRATORY DISTRESS OR SHORTNESS OF BREATH. BREATHING EVEN AND UNLABORED. ALERT AND ORIENTED. NO PHYSICAL MANIFESTATION OF PAIN OR DISCOMFORT. NO SIGNIFICANT CHANGE OF CONDITION. WILL ENDORSE TO AM SHIFT FOR CONTINUITY OF CARE.
[2017-02-25] MEDS: ASPIRIN 325 MG TABLET PO SCH (08:45)
[2017-02-25] MEDS: FAMOTIDINE/PF INJ 20 MG/2 ML VIAL IV SCH ×2 (08:45→22:08)
[2017-02-25] MEDS: DULOXETINE HCL 20 MG CAPSULE.DR PO SCH (08:45)
[2017-02-25] MEDS: METOPROLOL TARTRATE 25 MG TABLET PO SCH ×2 (08:46→22:10)
[2017-02-25] MEDS: HEPARIN SODIUM, PORCINE 5000 UNITS/1 ML VIAL SQ SCH ×2 (08:47→22:11)
[2017-02-25] MEDS: ISOSORBIDE MONONITRATE (30MG) 30 MG TAB.SR.24H PO SCH (08:47)
[2017-02-25] MEDS: HYDROGEL DRESSING 90 GM TUBE TP SCH (09:00)
[2017-02-25] MEDS: Z GUARD REMEDY 2 OZ OINT TP SCH (09:00)
[2017-02-25 09:41] LABS: BASOPHILS % (AUTO) 0.3 % (0.0-2.0); EOSINOPHILS # (AUTO) 0.6 /CMM (0.0-0.7); EOSINOPHILS % (AUTO) 5.6 % (0.0-6.0); HEMATOCRIT 28 % (33-45); HEMOGLOBIN 9.3 g/dL (11.5-14.8); LYMPHOCYTES # (AUTO) 0.6 /CMM (0.8-4.8); LYMPHOCYTES % (AUTO) 5.3 % (20.0-44.0); MEAN CORPUSCULAR HEMOGLOBIN 30 PG (26.0-33.0); MEAN CORPUSCULAR HGB CONC 33 g/dl (31.0-36.0); MEAN CORPUSCULAR VOLUME 91 fL (82-100); MONOCYTES # (AUTO) 1.2 /CMM (0.1-1.30); MONOCYTES % (AUTO) 10.6 % (2.0-12.0); NEUTROPHILS # (AUTO) 8.6 /CMM (1.8-8.9); NEUTROPHILS % (AUTO) 78.2 % (43.0-81.0); PLATELET COUNT (AUTO) 238 /CMM (150-450); RDW COEFFICIENT OF VARIATION 22.3 (11.5-15.0)
[2017-02-25 09:52] LABS: ALANINE AMINOTRANSFERASE 18 U/L (12-78); ALBUMIN 2.4 g/dL (3.4-5.0); ALKALINE PHOSPHATASE 193 U/L (46-116); ASPARTATE AMINOTRANSFERASE 27 U/L (15-37); BILIRUBIN,TOTAL 0.5 mg/dL (0.2-1.0); CALCIUM, SERUM 9.1 mg/dL (8.5-10.1); CARBON DIOXIDE 23 mmol/L (21-32); CHLORIDE 95 mmol/L (98-107); CREATININE 4.7 mg/dL (0.6-1.3); GLUCOSE 174 mg/dL (74-106); MAGNESIUM 2.3 mg/dL (1.8-2.4); PHOSPHORUS 5.7 mg/dL (2.5-4.9); POTASSIUM 4.5 mmol/L (3.5-5.1); SODIUM SERUM 131 mmol/L (136-145); TOTAL PROTEIN, SERUM 6.4 g/dL (6.4-8.2)
[2017-02-25 10:02] LABS: UREA NITROGEN, BLOOD 123 mg/dL (7-18)
[2017-02-25 13:00] VITALS: BP 112/46
[2017-02-25] MEDS: SOD FERRIC GLUC 125 MG in IV NS 0.9% 100 ML IV SCH (15:06)
--- NOTE | 2017-02-25 19:56 | NUR ---
RN NOTES AWAKE IN BED, ALERT AND ORIENTED. IN NO ACUTE DISTRESS WITH 02 OF 99% @LPM O2 VIA NASAL CANULA, BUT COMPLAINING OF SHORTNESS OF BREATH. REPOSITION FOR COMFORT. CALLED RT FOR BREATHING TREATMENT. NO COMPLAINT OF PAIN OF THIS TIME. KEPT CLEAN AND DRY. WILL CONTINUE TO MONITOR.
[2017-02-25 20:00] VITALS: BP 136/82
[2017-02-25] MEDS: IPRATROPIUM NEB FS 0.5 MG/2.5 ML AMPUL.NEB NEB PRN (20:51)
[2017-02-25] MEDS: ALBUTEROL HALF STRENGTH 1.25 MG/3 ML VIAL.NEB NEB PRN (20:51)
[2017-02-25] MEDS: ATORVASTATIN 10 MG TABLET PO SCH (22:08)
[2017-02-25] MEDS: SENNOSIDES 8.6 MG TABLET PO SCH (22:09)
[2017-02-25] MEDS: CEFTRIAXONE 1 G in IV D5W 50 ML IV SCH (22:12)
[2017-02-26] MEDS: INSULIN REGULAR, HUMAN 100 UNIT/ML 3 ML VIAL SQ PRN ×3 (00:23→12:30)
[2017-02-26] MEDS: BLOOD SUGAR DIAGNOSTIC 1 EACH STRIP IN SCH ×4 (00:24→17:49)
[2017-02-26 04:00] VITALS: BP_SYST 118; BP_SYST 138; BP_DIAS 56; BP_DIAS 57
--- NOTE | 2017-02-26 06:35 | NUR ---
RN CLOSING NOTES RESTING COMFORTABLY IN BED, NO DISTRESS NOTED. BREATHING EVEN AND UNLABORED. VITAL SIGNS WNL. NO SIGNIFICANT CHANGE OF CONDITION. WILL ENDORSE TO AM SHIFT FOR CONTINUITY OF CARE.
[2017-02-26 07:03] LABS: BASOPHILS % (AUTO) 0.3 % (0.0-2.0); EOSINOPHILS # (AUTO) 0.9 /CMM (0.0-0.7); EOSINOPHILS % (AUTO) 9.3 % (0.0-6.0); HEMATOCRIT 26 % (33-45); HEMOGLOBIN 8.8 g/dL (11.5-14.8); LYMPHOCYTES # (AUTO) 0.7 /CMM (0.8-4.8); LYMPHOCYTES % (AUTO) 7.1 % (20.0-44.0); MEAN CORPUSCULAR HEMOGLOBIN 31 PG (26.0-33.0); MEAN CORPUSCULAR HGB CONC 34 g/dl (31.0-36.0); MEAN CORPUSCULAR VOLUME 93 fL (82-100); MONOCYTES # (AUTO) 1.4 /CMM (0.1-1.30); MONOCYTES % (AUTO) 14.3 % (2.0-12.0); NEUTROPHILS # (AUTO) 6.7 /CMM (1.8-8.9); PLATELET COUNT (AUTO) 210 /CMM (150-450); RDW COEFFICIENT OF VARIATION 22.1 (11.5-15.0); RED BLOOD CELL COUNT(AUTO) 2.84 MIL/uL (4.0-5.2); WHITE BLOOD COUNT (AUTO) 9.8 K/uL (4.3-11.0)
[2017-02-26 07:30] LABS: ALANINE AMINOTRANSFERASE 16 U/L (12-78); ALBUMIN 2.1 g/dL (3.4-5.0); ALKALINE PHOSPHATASE 167 U/L (46-116); ASPARTATE AMINOTRANSFERASE 25 U/L (15-37); BILIRUBIN,TOTAL 0.4 mg/dL (0.2-1.0); CALCIUM, SERUM 8.8 mg/dL (8.5-10.1); CARBON DIOXIDE 20 mmol/L (21-32); CHLORIDE 93 mmol/L (98-107); CREATININE 5.2 mg/dL (0.6-1.3); GLUCOSE 148 mg/dL (74-106); MAGNESIUM 2.2 mg/dL (1.8-2.4); PHOSPHORUS 6.4 mg/dL (2.5-4.9); SODIUM SERUM 124 mmol/L (136-145); TOTAL PROTEIN, SERUM 5.8 g/dL (6.4-8.2)
[2017-02-26 07:36] LABS: UREA NITROGEN, BLOOD 132 mg/dL (7-18)
--- NOTE | 2017-02-26 07:47 | NUR ---
RN NOTES RECEIVED PT FROM FARM MACHINERY ASSEMBLER, IN NO DISTRESS HAVING BREAKFAST. PT A&OX3, ON 2L NASAL CANNULA NO SOB NOTED.KEVON MIDLINE DRESSING DRY AND INTACT. NO FLUIDS RUNNING AT THIS TIME. BED LOCKED AND IN LOWEST POSITION, SIDE RAILS UPX3, CALL LIGHT WITHIN REACH. WILL CONT TO MONITOR.
[2017-02-26 08:00] VITALS: BP 140/54
[2017-02-26] MEDS: ASPIRIN 325 MG TABLET PO SCH (08:14)
[2017-02-26] MEDS: ISOSORBIDE MONONITRATE (30MG) 30 MG TAB.SR.24H PO SCH (08:15)
[2017-02-26] MEDS: METOPROLOL TARTRATE 25 MG TABLET PO SCH ×2 (08:15→20:44)
[2017-02-26] MEDS: DULOXETINE HCL 20 MG CAPSULE.DR PO SCH (08:15)
[2017-02-26] MEDS: FAMOTIDINE/PF INJ 20 MG/2 ML VIAL IV SCH ×2 (08:16→20:42)
[2017-02-26] MEDS: HEPARIN SODIUM, PORCINE 5000 UNITS/1 ML VIAL SQ SCH ×2 (08:20→20:46)
[2017-02-26] MEDS: HYDROGEL DRESSING 90 GM TUBE TP PRN (08:23)
[2017-02-26] MEDS: Z GUARD REMEDY 2 OZ OINT TP SCH (08:23)
[2017-02-26] MEDS: HYDROGEL DRESSING 90 GM TUBE TP SCH (08:43)
--- NOTE | 2017-02-26 09:30 | NUR ---
RN NOTES ACCORDING TO DR SHEPARD PT WILL START HD EITHER TODAY OR TOMORROW. ALIRIO MCKEON WILL COME IN TO INSERT HD CATH.
--- NOTE | 2017-02-26 13:30 | NUR ---
RN NOTES R GROIN TEMPORARY HD CATH PLACED BY LILLIANA MCKEON.
[2017-02-26] MEDS: SOD FERRIC GLUC 125 MG in IV NS 0.9% 100 ML IV SCH (14:29)
[2017-02-26 16:00] VITALS: BP 100/36
--- NOTE | 2017-02-26 17:21 | NUR ---
RN NOTES DIALYSIS JUST COMPLETED, 900 OUT. PT TOLERATED WELL. VITAL SIGNS STABLE.
--- NOTE | 2017-02-26 18:36 | NUR ---
RN NOTES PT RESTING IN BED WITH FRIENDS AT BEDSIDE. NO SOB OR DISTRESS NOTED. TOLERATED DIALYSIS WELL, NO DISTRESS NOTED AFTER. PT CLEANED TURNED AND REPOSITIONED. ALL NEEDS MET. CALL LIGHT WITHIN REACH, SIDE RAILS UPX3, BED LOCKED AND IN LOWEST POSITION. WILL ENDORSE TO ONCOMING SHIFT.
--- NOTE | 2017-02-26 19:30 | NUR ---
RN MS INITIAL NOTE PT RECEIVED IN NO ACUTE DISTRESS. PT IS A/O X4 WITH 2LPM OF 02 VIA W[place]. T HAS KEVON MIDLINE RUNNING TKO CURRENTLY. PT IS ABLE TO MAKE NEEDS KNOWN. PT IS ON A 1000ML FLUID RESTRICTION DIET PER DAY. WILL MAINTAIN COMFORT AND SAFETY MEASURES. WILL CONTINUE TO MONITOR FOR CHANGES.
[2017-02-26 20:00] VITALS: BP 124/56
[2017-02-26] MEDS: CEFTRIAXONE 1 G in IV D5W 50 ML IV SCH (20:42)
[2017-02-26 21:00] VITALS: BP 124/56
[2017-02-26] MEDS: ATORVASTATIN 10 MG TABLET PO SCH (21:07)
[2017-02-26] MEDS: SENNOSIDES 8.6 MG TABLET PO SCH (21:08)
[2017-02-27] MEDS: BLOOD SUGAR DIAGNOSTIC 1 EACH STRIP IN SCH ×5 (00:02→23:39)
[2017-02-27] MEDS: INSULIN REGULAR, HUMAN 100 UNIT/ML 3 ML VIAL SQ PRN ×2 (00:07→18:08)
[2017-02-27 04:00] VITALS: BP 139/68
[2017-02-27] MEDS: ALBUTEROL HALF STRENGTH 1.25 MG/3 ML VIAL.NEB NEB PRN (04:06)
[2017-02-27] MEDS: IPRATROPIUM NEB FS 0.5 MG/2.5 ML AMPUL.NEB NEB PRN (04:06)
[2017-02-27 05:00] VITALS: BP 124/56
--- NOTE | 2017-02-27 07:00 | NUR ---
RN NOTE RECEIVED PT ON BED, A/Ox4,ABLE TO MAKE NEEDS KNOWN RESPIRATION EVEN AND UNLABORED, ON O2 2L N/C , SCHUYLER ANY DISTRESS KEVON MIDLINE SITE CDI. R GROIN HD CATH CDI, WILL MAINTAIN COMFORT AND SAFETY MEASURES. SR UP x3, CALL LIGHT WITHIN EASY REACH, WILL CONTINUE TO MONITOR PT CLOSELY AND NOTIFY MD FOR ANY SIGNIFICANT CHANGES
[2017-02-27 07:19] LABS: BASOPHILS % (AUTO) 0.2 % (0.0-2.0); EOSINOPHILS # (AUTO) 0.7 /CMM (0.0-0.7); EOSINOPHILS % (AUTO) 7.7 % (0.0-6.0); HEMATOCRIT 26 % (33-45); HEMOGLOBIN 8.8 g/dL (11.5-14.8); LYMPHOCYTES # (AUTO) 0.5 /CMM (0.8-4.8); LYMPHOCYTES % (AUTO) 5.1 % (20.0-44.0); MEAN CORPUSCULAR HEMOGLOBIN 32 PG (26.0-33.0); MEAN CORPUSCULAR HGB CONC 34 g/dl (31.0-36.0); MEAN CORPUSCULAR VOLUME 94 fL (82-100); MONOCYTES # (AUTO) 1.1 /CMM (0.1-1.30); NEUTROPHILS # (AUTO) 7.1 /CMM (1.8-8.9); PLATELET COUNT (AUTO) 218 /CMM (150-450); RDW COEFFICIENT OF VARIATION 23.1 (11.5-15.0); RED BLOOD CELL COUNT(AUTO) 2.79 MIL/uL (4.0-5.2); WHITE BLOOD COUNT (AUTO) 9.5 K/uL (4.3-11.0)
[2017-02-27 07:31] LABS: ALANINE AMINOTRANSFERASE 17 U/L (12-78); ALBUMIN 2.2 g/dL (3.4-5.0); ALKALINE PHOSPHATASE 162 U/L (46-116); ASPARTATE AMINOTRANSFERASE 23 U/L (15-37); BILIRUBIN,TOTAL 0.5 mg/dL (0.2-1.0); CALCIUM, SERUM 8.7 mg/dL (8.5-10.1); CARBON DIOXIDE 27 mmol/L (21-32); CHLORIDE 99 mmol/L (98-107); CREATININE 3.9 mg/dL (0.6-1.3); GLUCOSE 116 mg/dL (74-106); MAGNESIUM 2.1 mg/dL (1.8-2.4); PHOSPHORUS 4.8 mg/dL (2.5-4.9); POTASSIUM 4.2 mmol/L (3.5-5.1); SODIUM SERUM 135 mmol/L (136-145)
[2017-02-27 07:32] LABS: UREA NITROGEN, BLOOD 81 mg/dL (7-18)
[2017-02-27 08:00] VITALS: BP 149/49
[2017-02-27] MEDS: ASPIRIN 325 MG TABLET PO SCH (08:17)
[2017-02-27] MEDS: HYDROGEL DRESSING 90 GM TUBE TP SCH (08:17)
[2017-02-27] MEDS: Z GUARD REMEDY 2 OZ OINT TP SCH (08:17)
[2017-02-27] MEDS: ISOSORBIDE MONONITRATE (30MG) 30 MG TAB.SR.24H PO SCH (08:17)
[2017-02-27] MEDS: HEPARIN SODIUM, PORCINE 5000 UNITS/1 ML VIAL SQ SCH (08:18)
[2017-02-27] MEDS: DULOXETINE HCL 20 MG CAPSULE.DR PO SCH (08:18)
[2017-02-27] MEDS: FAMOTIDINE/PF INJ 20 MG/2 ML VIAL IV SCH ×2 (08:18→21:41)
[2017-02-27] MEDS: METOPROLOL TARTRATE 25 MG TABLET PO SCH ×2 (08:18→21:40)
[2017-02-27] MEDS ORDERED: BUMETANIDE INJ 6 MG in IV NS 0.9% 36 ML IV ONE (12:00)
--- NOTE | 2017-02-27 12:00 | NUR ---
RN NOTES PT AT REST , NO DISTRESS NOTED, CONTINUE TO MONITOR .
[2017-02-27] MEDS: LACTULOSE 10 G/15 ML UDC (PYXIS) PO PRN (14:34)
[2017-02-27 16:00] VITALS: BP 131/45
--- NOTE | 2017-02-27 18:19 | NUR ---
RN NOTES RESPIRATION EVEN AND UNLABORED, PT OOB TO CHAIR x1 ON THIS SHIFT TOLERATED WELL, MEDICATED PER MD ORDER , R UPPER ARM MID LINE CDI, CALL LIGHT WITHIN EASY REACH, SR UP x3, NO SIGNIFICANT CHANGES NOTED ON THIS SHIFT , WILL ENDORSE TO DIRECTOR SPECIALTY NURSE FOR CONTINUITY OF CARE .
--- NOTE | 2017-02-27 19:40 | NUR ---
RN MS INITIAL NOTE PT RECEIVED IN NO ACUTE DISTRESS. PT IS ALERT A/O X4 AND ABLE TO MAKE NEEDS KNOWN. PT HAS HUMIDIFIER WITH 4LPM OF 02 VIA NC. PT IS ANURIC AND HAD HD THE SHIFT BEFORE WITH 1000CC REMOVED. PT HAS A PATENT KEVON MIDLINE THAT IS CLEAN AND DRY. PT HAS TEMPORARY HD CATH IN RIGHT GROIN THAT WAS VISUALLY SOILED WITH BLOOD SO DRESSING WAS CHANGED. COMFORT AND SAFETY MEASURES WILL BE ENSURED DURING THE SHIFT.
[2017-02-27 20:00] VITALS: BP 150/68
[2017-02-27 21:00] VITALS: BP 150/68
[2017-02-27] MEDS: SENNOSIDES 8.6 MG TABLET PO SCH (21:40)
[2017-02-27] MEDS: ATORVASTATIN 10 MG TABLET PO SCH (21:40)
[2017-02-28 04:00] VITALS: BP 154/63
[2017-02-28 05:00] VITALS: BP 154/63
[2017-02-28] MEDS: BLOOD SUGAR DIAGNOSTIC 1 EACH STRIP IN SCH ×4 (05:15→23:50)
[2017-02-28] MEDS: ALBUTEROL HALF STRENGTH 1.25 MG/3 ML VIAL.NEB NEB PRN (05:45)
--- NOTE | 2017-02-28 06:15 | NUR ---
RN MS CLOSING NOTE PT IN STABLE CONDITION AFTER HAVING SOB. BREATHING TREATMENT BY RT WAS INITIATED AND COMPLETED AND 02 WAS INCREASED IN ORDER TO MAINTAIN 02 SATURATION AMONG OTHER INTERVENTIONS. PT IS ALERT AND ORIENTED. ALL DUE MEDICATIONS WERE GIVEN AND TOLERATED WELL. WILL ENDORSE CARE TO AM NURSE.
--- NOTE | 2017-02-28 07:15 | NUR ---
MS RN INITIAL NOTES: REC'D PT AWAKE ON BED, NOT IN ANY FORM OF DISTRESS, A/O X4. ON O2/NC AT 4LPM, SATURATING 99%, DENIES ANY SOB AT THIS TIME. HAS KEVON MIDLINE, SL, FLUSHED, PATENT & INTACT, W/ NO S/SX OF INFECTION/ INFILTRATION NOTED. HAS HD CATH ON THE RIGHT GROIN AREA. ON STRICT FLUID RESTRICTION 1 L / DAY - PT AND LABORATORY ASSISTANT REMINDED. PROVIDED COMFORT & SAFETY MEASURES. CALL LIGHT PLACED W/IN EASY REACH. BED KEPT LOW & IN LOCKED POS. WILL CONTINUE TO MONITOR.
[2017-02-28 08:00] VITALS: BP 153/56
[2017-02-28] MEDS: METOPROLOL TARTRATE 25 MG TABLET PO SCH ×2 (08:42→21:14)
[2017-02-28] MEDS: FAMOTIDINE/PF INJ 20 MG/2 ML VIAL IV SCH ×2 (08:42→21:13)
[2017-02-28] MEDS: DULOXETINE HCL 20 MG CAPSULE.DR PO SCH (08:42)
[2017-02-28] MEDS: ASPIRIN 325 MG TABLET PO SCH (08:42)
[2017-02-28] MEDS: ISOSORBIDE MONONITRATE (30MG) 30 MG TAB.SR.24H PO SCH (08:43)
[2017-02-28] MEDS: HYDROGEL DRESSING 90 GM TUBE TP SCH (08:43)
[2017-02-28] MEDS: Z GUARD REMEDY 2 OZ OINT TP SCH (08:43)
--- NOTE | 2017-02-28 10:00 | NUR ---
RN NOTES: PER DR. CARBAJAL, PT FOR UPPER EGD LONA 03/01/17. SECURE CONSENT. NPO POST MIDNIGHT. CBC, BMP, PT/INR LONA AM. Addendum: 02/28/17 at 1846 by JACOB EDDY RN ADDENDUM: CONSERVATOR OF PATIENT, MS. WOO SIGNED THE CONSENT FOR SCHEDULED EGD AND COLONOSCOPY TOMORROW.
--- NOTE | 2017-02-28 10:15 | NUR ---
RN NOTES: PT SEEN & EXAMINED BY DR. PALOMO. PER MD, HE NOTIFIED RENAL MD FOR PT TO HAVE HD TODAY. MADE AWARE OF SCHEDULED UPPER EGD TOMORROW.
[2017-02-28] MEDS: ALBUMIN 25% 25 GM in PREMIX 1 EA IV PRN ×2 (13:10→14:39)
[2017-02-28] MEDS: INSULIN REGULAR, HUMAN 100 UNIT/ML 3 ML VIAL SQ PRN ×2 (13:10→17:51)
[2017-02-28] MEDS ORDERED: PEG 3350/NA SULF,BICARB,CL/KCL 4,000 ML BOTTLE PO ONE (14:00)
[2017-02-28] MEDS ORDERED: MAGNESIUM CITRATE 296 ML BOTTLE PO ONE (14:00)
--- NOTE | 2017-02-28 14:00 | NUR ---
RN NOTES: BOWEL CLEANSING STARTED ORDERED. PT EDUCATED ABOUT BOWEL PREPARATION FOR SCHEDULED PROCEDURE TOMORROW. PT VERBALIZED UNDERSTANDING.
--- NOTE | 2017-02-28 15:00 | NUR ---
RN NOTES: PT TOLERATED WELL HD W/ 2 L OUTPUT C/O HD RN ANDRÉS.
--- NOTE | 2017-02-28 15:26 | NUR ---
RN NOTES: PT AND FAMILY MADE AWARE ABOUT NEW ORDER OF DR. CARBAJAL RE: EGD AND COLONOSCOPY TOMORROW; VERBALIZED UNDERSTANDING.
[2017-02-28 16:00] VITALS: BP 119/40
--- NOTE | 2017-02-28 17:53 | NUR ---
RN NOTES: ACCUCHECK 203 MG/DL. PT REFUSED ON EATING HER CLEAR LIQUID DIET AND REFUSED INSULIN MEDICATION. RISK EXPLAINED BUT PT STRONGLY REFUSED. WILL CONTINUE TO MONITOR.
--- NOTE | 2017-02-28 18:46 | NUR ---
MS RN CLOSING NOTES: NO ACUTE CHANGES NOTED W/IN SHIFT. PT TOLERATED O2/NC AT 4LPM, SATURATING 99%, NO SOB W/IN SHIFT. HAS KEVON MIDLINE, KEPT PATENT & INTACT, W/ NO S/SX OF INFECTION/ INFILTRATION NOTED. HD CATH ON THE RIGHT GROIN AREA KEPT IN PLACE W/ CLEAN/ DRY & INTACT DRESSING. PT HAD 1 BM, SOFT BROWN STOOL; PT ALREADY TOOK CIT[place] OF MAGNESIA BOTTLE. GOLYTELY SOLUTION AT BEDSIDE, DRUNK APPROXIMATELY 200ML W/IN SHIFT. INSTRUCTED TO CONTINUE DRINK THE GOLYTELY SOLN BUT IF NOT INFORM THE RN SO THAT RN CAN INFORM THE MD. REMINDED PT NPO POST MIDNIGHT. KEPT WELL RESTED. NEEDS ATTENDED. CALL LIGHT PLACED W/IN EASY REACH. BED KEPT LOW & IN LOCKED POS. WILL ENDORSE TO PM RN FOR CAILIN.
--- NOTE | 2017-02-28 19:35 | NUR ---
RN MS INITIAL NOTE PT RECEIVED IN NO ACUTE DISTRESS. PT IS AWAKE AND ALERT ABLE TO MAKE NEEDS KNOWN. PACEMAKER ON LEFT UPPER CHEST. WAS REPORTED PT HAD DIALYSIS 2L TAKEN OUT, TEMPORARY HD CATH ON RIGHT GROIN IS INTACT. PT HAS A PATENT KEVON MIDLINE. PT ON CLEAR LIQUID DIET IN ORDER TO CLEAR BOWELS. PT HAS HAD ABOUT 300CC INTAKE AND IS HAVING DIFFICULT TIME WITH GOLETYL. WILL MONITOR ANY LET MD AWARE IF UNABLE TO CONSUME ADEQUATE AMOUNT.
[2017-02-28 19:47] VITALS: BP 145/52
[2017-02-28] MEDS: ATORVASTATIN 10 MG TABLET PO SCH (21:13)
[2017-02-28] MEDS: SENNOSIDES 8.6 MG TABLET PO SCH (21:14)
--- NOTE | 2017-02-28 22:50 | NUR ---
RN NOTE SPOKE TO MD CARBAJAL REGARDING PROGRESS OF PT DRINKING GOLETYL. STATED THAT PT HAS UNTIL 3AM TO FINISH THE FLUIDS AND IF NOT FINISHED BY THEN 2 FLEET ENEMAS TO BE DONE. WILL CONTINUE TO MONITOR AND ENCOURAGE PT TO DRINK.
[2017-03-01] VITALS (8 sets, daily range): BP systolic 119–166; BP diastolic 36–92
--- NOTE | 2017-03-01 03:41 | NUR ---
RN NOTE PT FINISHED GOLYTLE BEFORE 3AM.
[2017-03-01] MEDS: ALBUTEROL HALF STRENGTH 1.25 MG/3 ML VIAL.NEB NEB PRN (04:06)
[2017-03-01] MEDS: IPRATROPIUM NEB FS 0.5 MG/2.5 ML AMPUL.NEB NEB PRN (04:06)
[2017-03-01] MEDS: BLOOD SUGAR DIAGNOSTIC 1 EACH STRIP IN SCH ×3 (05:24→18:23)
--- NOTE | 2017-03-01 06:22 | NUR ---
RN MS CLOSING NOTE PT REMAINS IN NO ACUTE DISTRESS. CONSENT FOR COLONOSCOPY/EGD SIGNED AND IN CHART. PT FINISHED GOLYTLY BEFORE 0300. PT HAS VITALS WNL. NO INSULIN WAS GIVEN DUE TO CLEAR LIQUIDS/NPO STATUS TO AVOID HYPOGLYCEMIA. ALL DUE ORDERS AND MEDICATIONS CARRIED OUT ORDERED. COMFORT/SAFETY MEASURES ENSURED DURING THE SHIFT. WILL ENDORSE CARE TO AM NURSE.
[2017-03-01 06:27] LABS: BASOPHILS % (AUTO) 0.4 % (0.0-2.0); EOSINOPHILS # (AUTO) 0.3 /CMM (0.0-0.7); EOSINOPHILS % (AUTO) 2.8 % (0.0-6.0); HEMATOCRIT 26 % (33-45); HEMOGLOBIN 9.1 g/dL (11.5-14.8); LYMPHOCYTES # (AUTO) 0.4 /CMM (0.8-4.8); LYMPHOCYTES % (AUTO) 4.3 % (20.0-44.0); MEAN CORPUSCULAR HEMOGLOBIN 34 PG (26.0-33.0); MEAN CORPUSCULAR HGB CONC 35 g/dl (31.0-36.0); MEAN CORPUSCULAR VOLUME 98 fL (82-100); MONOCYTES % (AUTO) 10.3 % (2.0-12.0); NEUTROPHILS # (AUTO) 8.3 /CMM (1.8-8.9); NEUTROPHILS % (AUTO) 82.2 % (43.0-81.0); PLATELET COUNT (AUTO) 104 /CMM (150-450); RDW COEFFICIENT OF VARIATION 22.6 (11.5-15.0); WHITE BLOOD COUNT (AUTO) 10.1 K/uL (4.3-11.0)
[2017-03-01 06:44] LABS: CALCIUM, SERUM 9.4 mg/dL (8.5-10.1); CARBON DIOXIDE 26 mmol/L (21-32); CHLORIDE 102 mmol/L (98-107); GLUCOSE 161 mg/dL (74-106); SODIUM SERUM 139 mmol/L (136-145); UREA NITROGEN, BLOOD 40 mg/dL (7-18)
[2017-03-01 06:45] LABS: INR 1.14 (0.87-1.13); PROTHROMBIN TIME 12.3 SECS (9.5-12.7)
--- NOTE | 2017-03-01 07:30 | NUR ---
RN NOTES RECEIVED PATIENT IN BED ALERT, AWAKE, ORIENTED X3 WITH BREATHING NORMAL, EVEN AND UNLABORED. NO SOB NOTED. ON 4L O2 VIA NC. SATURATING WELL. NO ACUTE DISTRESS NOTED. NPO FOR PROCEDURE. KEVON MIDLINE IS PATENT AND INTACT. HD CATH INTACT. DRESSING CLEAN AND DRY. KEPT CLEAN, DRY AND COMFORTABLE. ALL NEEDS ATTENDED. SAFETY MEASURE OBSERVED. CALL LIGHT WITH IN REACH. WILL CONT TO MONITOR.
[2017-03-01] MEDS ORDERED: KETAMINE HCL (500MG/10ML) 50 MG/ML VIAL ONE (08:21)
[2017-03-01] MEDS ORDERED: ALBUTEROL FS 2.5 MG/3 ML VIAL.NEB ONE (08:28)
[2017-03-01] MEDS: FAMOTIDINE/PF INJ 20 MG/2 ML VIAL IV SCH ×2 (09:54→21:17)
[2017-03-01] MEDS: ASPIRIN 325 MG TABLET PO SCH (09:54)
[2017-03-01] MEDS: DULOXETINE HCL 20 MG CAPSULE.DR PO SCH (09:54)
[2017-03-01] MEDS: ISOSORBIDE MONONITRATE (30MG) 30 MG TAB.SR.24H PO SCH (09:55)
[2017-03-01] MEDS: METOPROLOL TARTRATE 25 MG TABLET PO SCH ×2 (09:56→21:18)
[2017-03-01] MEDS: HYDROGEL DRESSING 90 GM TUBE TP SCH (09:57)
[2017-03-01] MEDS: Z GUARD REMEDY 2 OZ OINT TP SCH (09:57)
[2017-03-01] MEDS ORDERED: PANT40TA2 PO (10:01)
[2017-03-01] MEDS: ALBUMIN 25% 25 GM in PREMIX 1 EA IV PRN (13:07)
[2017-03-01] MEDS: BOOST GLUCOSE CONTROL VANILLA 237 ML BOX PO SCH ×2 (13:37→18:21)
[2017-03-01] MEDS: INSULIN REGULAR, HUMAN 100 UNIT/ML 3 ML VIAL SQ PRN (19:10)
--- NOTE | 2017-03-01 19:15 | NUR ---
RN NOTES RECEIVED PATIENT IN BED AWAKE, ALERT/ORIENTED X4. VERBALLY RESPONSIVE. FAMILY AT BED SIDE. RESPIRATION IS EVEN AND UNLABORED. NO SOB NOTED. NO ACUTE DISTRESS NOTED. ON 02 @ 4LPM VIA NC, OXYGEN SATURATION IS 100 % . KEVON MIDLINE PATENT AND INTACT, NO INFILTRATION NOTED NOR S/S OF INFECTION NOTED. RIGHT GROIN TEMP HD CATH WITH NO BLEEDING AT THIS TIME. PT DENIES ANY PAIN OR DISCOMFORT AT THIS TIME. SAFETY PRECAUTIONS OBSERVED. CALL LIGHT WITH IN REACH. BED ON LOWEST LEVEL. ALL NEEDS ATTENDED AND MET. WILL CONT TO MONITOR.
--- NOTE | 2017-03-01 19:36 | NUR ---
RN NOTES PATIENT ENDORSED TO NEXT SHIFT IN STABLE CONDITION FOR CONTINUITY OF CARE.
[2017-03-01] MEDS: ATORVASTATIN 10 MG TABLET PO SCH (21:20)
[2017-03-01] MEDS: SENNOSIDES 8.6 MG TABLET PO SCH (21:21)
[2017-03-02] MEDS: BLOOD SUGAR DIAGNOSTIC 1 EACH STRIP IN SCH ×5 (00:24→23:44)
[2017-03-02] MEDS: INSULIN REGULAR, HUMAN 100 UNIT/ML 3 ML VIAL SQ PRN ×4 (00:32→23:47)
--- NOTE | 2017-03-02 02:37 | NUR ---
PT RESTING COMFORTABLY AT THIS TIME. AROUSES EASILY. NO DISTRESS, NO SOB NOTED. DENIES ANY PAIN OR DISCOMFORT AT THIS TIME. ALL NEEDS ATTENDED. CALL LIGHT WITHIN REACH. SAFETY PRECAUTIONS OBSERVED. WILL CONTINUE TO MONITOR.
[2017-03-02 04:00] VITALS: BP 136/57
--- NOTE | 2017-03-02 04:45 | NUR ---
PT REFUSED TO BE CHANGED AT THIS TIME, RISK AND BENEFITS EXPLAINED BUT PT STILL REFUSED PT IS A/O X 4. PER PT SHE DIDN'T URINATE OR MADE A BM. ENCOURAGED PT TO CALL AND DON'T HESITATE TO ASK IF SHE NEEDS TO BE CHANGED. WILL CONTINUE TO MONITOR. CALL LIGHT WITHIN REACH.
--- NOTE | 2017-03-02 06:33 | NUR ---
RN NOTES PATIENT IN BED RESTING COMFORTABLY AT THIS TIME, AROUSES EASILY. ALERT/ORIENTED X4. VERBALLY RESPONSIVE. RESPIRATION IS EVEN AND UNLABORED. NO SOB NOTED. NO ACUTE DISTRESS NOTED. ON 02 @ 4LPM VIA NC, OXYGEN SATURATION IS 100 % . KEVON MIDLINE PATENT AND INTACT, NO INFILTRATION NOTED NOR S/S OF INFECTION NOTED. RIGHT GROIN TEMP HD CATH WITH NO BLEEDING AT THIS TIME. PT DENIES ANY PAIN OR DISCOMFORT AT THIS TIME. SAFETY PRECAUTIONS OBSERVED. CALL LIGHT WITH IN REACH. BED ON LOWEST LEVEL. ALL NEEDS ATTENDED AND MET. WILL ENDORSE TO NEXT SHIFT FOR CAILIN.
[2017-03-02 06:48] LABS: BASOPHILS # (AUTO) 0.1 /CMM (0.0-0.2); BASOPHILS % (AUTO) 0.6 % (0.0-2.0); EOSINOPHILS # (AUTO) 0.7 /CMM (0.0-0.7); EOSINOPHILS % (AUTO) 6.8 % (0.0-6.0); HEMATOCRIT 25 % (33-45); HEMOGLOBIN 8.5 g/dL (11.5-14.8); LYMPHOCYTES # (AUTO) 0.8 /CMM (0.8-4.8); LYMPHOCYTES % (AUTO) 7.9 % (20.0-44.0); MEAN CORPUSCULAR HEMOGLOBIN 34 PG (26.0-33.0); MEAN CORPUSCULAR HGB CONC 34 g/dl (31.0-36.0); MEAN CORPUSCULAR VOLUME 99 fL (82-100); MONOCYTES # (AUTO) 1.2 /CMM (0.1-1.30); NEUTROPHILS # (AUTO) 7.4 /CMM (1.8-8.9); NEUTROPHILS % (AUTO) 72.7 % (43.0-81.0); PLATELET COUNT (AUTO) 73 /CMM (150-450); RDW COEFFICIENT OF VARIATION 22.6 (11.5-15.0); RED BLOOD CELL COUNT(AUTO) 2.51 MIL/uL (4.0-5.2); WHITE BLOOD COUNT (AUTO) 10.1 K/uL (4.3-11.0)
--- NOTE | 2017-03-02 07:00 | NUR ---
MS RN NOTE: RECEIVED PT AWAKE IN BED. PT IS A&OX4, DENIES PAIN, ON 02 @ 4LPM VIA NC, RESPIRATIONS EVEN AND UNLABORED WITH NO SOB NOTED. KEVON MIDLINE PATENT AND INTACT. RIGHT GROIN TEMP HD CATH. BED LOW, LOCKED WITH CALL LIGHT WITHIN REACH. WILL CONT TO MONITOR.
[2017-03-02 07:27] LABS: ALANINE AMINOTRANSFERASE 21 U/L (12-78); ALBUMIN 3.5 g/dL (3.4-5.0); ALKALINE PHOSPHATASE 134 U/L (46-116); ASPARTATE AMINOTRANSFERASE 26 U/L (15-37); BILIRUBIN,TOTAL 0.9 mg/dL (0.2-1.0); CALCIUM, SERUM 9.3 mg/dL (8.5-10.1); CARBON DIOXIDE 28 mmol/L (21-32); CHLORIDE 99 mmol/L (98-107); CREATININE 3.1 mg/dL (0.6-1.3); GLUCOSE 151 mg/dL (74-106); MAGNESIUM 2.1 mg/dL (1.8-2.4); PHOSPHORUS 3.7 mg/dL (2.5-4.9); POTASSIUM 3.9 mmol/L (3.5-5.1); SODIUM SERUM 136 mmol/L (136-145); TOTAL PROTEIN, SERUM 6.6 g/dL (6.4-8.2); UREA NITROGEN, BLOOD 48 mg/dL (7-18)
[2017-03-02 08:00] VITALS: BP 124/46
[2017-03-02] MEDS: ASPIRIN 325 MG TABLET PO SCH (08:16)
[2017-03-02] MEDS: FAMOTIDINE/PF INJ 20 MG/2 ML VIAL IV SCH ×2 (08:16→20:45)
[2017-03-02] MEDS: BOOST GLUCOSE CONTROL VANILLA 237 ML BOX PO SCH ×2 (08:16→17:10)
[2017-03-02] MEDS: METOPROLOL TARTRATE 25 MG TABLET PO SCH ×2 (08:19→20:47)
[2017-03-02] MEDS: ISOSORBIDE MONONITRATE (30MG) 30 MG TAB.SR.24H PO SCH (08:20)
[2017-03-02] MEDS: HYDROGEL DRESSING 90 GM TUBE TP SCH (08:25)
[2017-03-02] MEDS: Z GUARD REMEDY 2 OZ OINT TP SCH (08:26)
[2017-03-02] MEDS: DULOXETINE HCL 20 MG CAPSULE.DR PO SCH (08:27)
[2017-03-02 09:00] VITALS: BP 124/46
[2017-03-02 09:05] LABS: EOSINOPHILS % (MANUAL) 6 % (0-4); LYMPHOCYTES % (MANUAL) 15 % (16-48); MONOCYTES % (MANUAL) 10 % (0-11.0); NEUTROPHILS % (MANUAL) 69 (42-76)
--- NOTE | 2017-03-02 10:18 | NUR ---
MS RN NOTE: DIALYSIS NURSE HERE. EXPLAINED THAT PT WAS NOT ABLE TO D/C YESTERDAY DUE TO LOW BP. INFORMED THAT MORNING MEDICATIONS WERE GIVEN SCHEDULED, INCLUDING BP MEDS. PER DIALYSIS NURSE, WILL CHECK PT AND ORDER ALBUMIN IF NEEDED FOR LOW BP.
--- NOTE | 2017-03-02 13:09 | NUR ---
MS RN NOTE: PER DIALYSIS NURSE, 1.2L REMOVED.
[2017-03-02 16:00] VITALS: BP 113/40
[2017-03-02 17:00] VITALS: BP 113/40
--- NOTE | 2017-03-02 19:22 | NUR ---
MS RN NOTE: NO ACUTE CHANGES DURING SHIFT. PATIENT A&OX4, DENIED PAIN. ORDERS CARRIED OUT. BED LOW, LOCKED WITH CALL LIGHT WITHIN REACH. WILL ENDORSE TO MORTGAGE CLERK NURSE FOR CAILIN.
[2017-03-02 20:00] VITALS: BP 132/58
--- NOTE | 2017-03-02 20:00 | NUR ---
ms rn notes received pts on bed awake alert and verbally responsive , no sob no distress noted , v/s stable afebrile no c/o of pain . all due meds given as ordered call light within easy to reach all needs attended too , kept pts clean dry and comfortable .
[2017-03-02] MEDS: ATORVASTATIN 10 MG TABLET PO SCH (21:00)
[2017-03-02] MEDS: SENNOSIDES 8.6 MG TABLET PO SCH (21:00)
[2017-03-03] VITALS: BP_SYST 130; BP_SYST 133; BP_DIAS 39; BP_DIAS 40
--- NOTE | 2017-03-03 | NUR ---
ms rn notes bloos sugar for 12mn is 148mg/dl - 2 units of regular insulin given per sliding scale .pts on po diet , will checked blood sugar again in am .
--- NOTE | 2017-03-03 00:30 | NUR ---
ms rn notes pts consented for wound debridement , instructed pts to be npo post mn , also pts scheduled for insertion of perm cath today at 1600hrs but theres no order noted , beside pts doesnt want to sign consent according to her nobody told her abt the procedure . will endorse to rn day shift to f/u with .
[2017-03-03 04:00] VITALS: BP 124/42
[2017-03-03] MEDS: BLOOD SUGAR DIAGNOSTIC 1 EACH STRIP IN SCH ×3 (05:27→17:26)
[2017-03-03] MEDS: INSULIN REGULAR, HUMAN 100 UNIT/ML 3 ML VIAL SQ PRN ×2 (05:29→17:46)
--- NOTE | 2017-03-03 05:38 | NUR ---
ms rn notes blood sugar for 6am is 94 mg/dl no coverage given per sliding scale and pts on npo status.
--- NOTE | 2017-03-03 06:35 | NUR ---
MS RN NOTES PTS REMAINS NPO STATUS FOR DEBRIDEMENT OF WOUND , MARVA ENDORSE TO RN DAY SHIFT FOR CONTINUITY OF CARE.
--- NOTE | 2017-03-03 07:25 | NUR ---
ms rn notes spoke to dr bailey re procedure today , insertion of perm cath , relayed pts refused to sign consent , dr bailey said nurse to call dr hoang to explain the procedure to the pts .and to obtain consent . pts remains npo.
[2017-03-03 08:00] VITALS: BP 133/47
[2017-03-03] MEDS: BOOST GLUCOSE CONTROL VANILLA 237 ML BOX PO SCH ×2 (08:00→17:24)
--- NOTE | 2017-03-03 08:30 | NUR ---
ms rn received on bed, awake,alert,oriented x4, not in any form of distress, respirations even and unlabored,no sob noted. lungs are clear, abdomen soft,positive bowel sounds, denies pain at this time will monitor patient's condition.
[2017-03-03] MEDS: FAMOTIDINE/PF INJ 20 MG/2 ML VIAL IV SCH ×3 (09:00→21:03)
[2017-03-03] MEDS: DULOXETINE HCL 20 MG CAPSULE.DR PO SCH ×2 (09:00→17:24)
[2017-03-03] MEDS: HYDROGEL DRESSING 90 GM TUBE TP SCH (09:00)
[2017-03-03] MEDS: ISOSORBIDE MONONITRATE (30MG) 30 MG TAB.SR.24H PO SCH ×2 (09:00→17:26)
[2017-03-03] MEDS: ASPIRIN 325 MG TABLET PO SCH ×2 (09:00→17:24)
[2017-03-03] MEDS: METOPROLOL TARTRATE 25 MG TABLET PO SCH ×3 (09:00→21:04)
--- NOTE | 2017-03-03 09:30 | NUR ---
ms nelli lock held, patient on npo for permacath placement today.
[2017-03-03] MEDS ORDERED: IV D5/ 0.9% NACL 1,000 ML IV PRN (10:30)
--- NOTE | 2017-03-03 11:00 | NUR ---
ms rn was seen by dr. hoang, will monitor patient's condition.
[2017-03-03 12:00] VITALS: BP 152/60
[2017-03-03] MEDS ORDERED: LIDOCAINE 0.5% HCL 50 ML VIAL ONE (13:56)
[2017-03-03] MEDS ORDERED: HEPARIN SODIUM, PORCINE 1,000 UNIT/ML VIAL ONE (13:56)
[2017-03-03] MEDS ORDERED: LIDOCAINE 1% INJ 50 ML MDV IJ ONE (14:24)
--- NOTE | 2017-03-03 15:00 | NUR ---
ms rn patient went down for procedure.
--- NOTE | 2017-03-03 15:30 | NUR ---
ms rn patient came back, refused procedure, dr. hoang notified, was able to speak w/ dpoa.
[2017-03-03 16:00] VITALS: BP 152/60
[2017-03-03] MEDS: Z GUARD REMEDY 2 OZ OINT TP SCH (17:26)
[2017-03-03] MEDS: HYDROGEL DRESSING 90 GM TUBE TP PRN (17:27)
--- NOTE | 2017-03-03 18:00 | NUR ---
ms rn due meds given, bs taken - 155 - 2 units regular insulin given, all needs attended.
[2017-03-03 20:00] VITALS: BP 125/49
--- NOTE | 2017-03-03 20:00 | NUR ---
MS RN NOTES RECEIVED PTS ON BED A/O X4 ,NO SOB NO DISTRESS NOTED NO C/O OF PAIN ,V/S STABLE AFEBRILE . ALL NEEDS ATTENDED TOO CALL LIGHT WITHIN EASY REACH , DUE MEDS GIVEN ORDERED , PTS ABLE TO TOLERATE PO , ON CARDIAC DIET. REFUSED IV HYDRATION , MADE AWARE OK TO D/C IV HYDRATION, SAFETY MEASURED OBSERVED , ON RIGHT FEMORAL HD CATH INTACT AND DRY. WITH KEVON MIDLINE INTACT AND PATENT TOO. KEPT PTS CLEAN DRY AND COMFORTABLE. WILL CONTINUE TO MONITOR PTS.
[2017-03-03] MEDS: SENNOSIDES 8.6 MG TABLET PO SCH (21:09)
[2017-03-03] MEDS: ATORVASTATIN 10 MG TABLET PO SCH (21:09)
--- NOTE | 2017-03-04 00:50 | NUR ---
ms rn notes blood sugar for 12mn is 109mg/dl no insulin coverage given per sliding scale pts on po cardiac diet
[2017-03-04] MEDS: BLOOD SUGAR DIAGNOSTIC 1 EACH STRIP IN SCH ×4 (00:52→17:17)
[2017-03-04] MEDS: INSULIN REGULAR, HUMAN 100 UNIT/ML 3 ML VIAL SQ PRN ×3 (00:53→11:45)
[2017-03-04 04:00] VITALS: BP 122/50
--- NOTE | 2017-03-04 06:49 | NUR ---
MS RN NOTES BLOOD SUGAR FOR 6AM IS 131-MG/DL NO COVERAGE GIVEN PTS REFUSED MEDS , WILL ENDORSE TO RN DAY SHIFT FOR CONTINUITY OF CARE .PTS COMFORTABLE IN BED.
--- NOTE | 2017-03-04 07:46 | NUR ---
RN INITIAL NOTE REPORT RECEIVED FROM JAN PM SHIFT FOR CAILIN. PT A/O X4 PT MS. IV KEVON MIDLINE , HD CATH R GROIN INTACT. NC 4 L NO C/O SOB.WILL CONTINUE TO MONITOR CLOSELY. ALL SAFETY MEASURES IN PLACE.
[2017-03-04 08:00] VITALS: BP 139/50
[2017-03-04] MEDS: BOOST GLUCOSE CONTROL VANILLA 237 ML BOX PO SCH ×2 (08:25→17:17)
[2017-03-04] MEDS: METOPROLOL TARTRATE 25 MG TABLET PO SCH ×2 (08:26→21:28)
[2017-03-04] MEDS: ISOSORBIDE MONONITRATE (30MG) 30 MG TAB.SR.24H PO SCH (08:26)
[2017-03-04] MEDS: ASPIRIN 325 MG TABLET PO SCH (08:26)
[2017-03-04] MEDS: DULOXETINE HCL 20 MG CAPSULE.DR PO SCH (08:27)
[2017-03-04] MEDS: Z GUARD REMEDY 2 OZ OINT TP SCH (08:27)
[2017-03-04] MEDS: HYDROGEL DRESSING 90 GM TUBE TP SCH (08:27)
[2017-03-04] MEDS: FAMOTIDINE/PF INJ 20 MG/2 ML VIAL IV SCH ×2 (08:30→21:27)
[2017-03-04 16:00] VITALS: BP 124/41
--- NOTE | 2017-03-04 19:35 | NUR ---
MS/RN NOTES RECEIVED PT. SITTING UP IN CHAIR. AWAKE, ALERT AND ORIENTED X4. BREATHING EVEN AND UNLABORED ON 3LPM O2 VIA NC. NO SOB, RESPIRATORY DISTRESS OR COMPLAINTS OF PAIN NOTED AT THIS TIME. PT. WITH RIGHT UPPER ARM MIDLINE PRESENT, PATENT AND INTACT. PT. WITH RIGHT GROIN HD CATH PRESENT AND INTACT. CALL LIGHT WITHIN REACH, EDUCATED PT. TO CALL FOR ASSISTANCE BEFORE GETTING OUT OF THE CHAIR. PT. VERBALIZED UNDERSTANDING. WILL CONTINUE TO MONITOR.
--- NOTE | 2017-03-04 19:55 | NUR ---
RN CLOSING NOTE REPORT GIVEN TO MARILU PM SHIFT FOR CAILIN. PT A/O X4 PT MS. IV KEVON MIDLINE , HD CATH R GROIN INTACT. NC 3 L NO C/O SOB. ALL SAFETY MEASURES IN PLACE. ALL ORDERS CARRIED OUT.
[2017-03-04 20:00] VITALS: BP 150/54
[2017-03-04] MEDS: ATORVASTATIN 10 MG TABLET PO SCH (21:27)
[2017-03-04] MEDS: SENNOSIDES 8.6 MG TABLET PO SCH (21:27)
[2017-03-05] MEDS: BLOOD SUGAR DIAGNOSTIC 1 EACH STRIP IN SCH ×4 (00:04→17:55)
[2017-03-05] MEDS: INSULIN REGULAR, HUMAN 100 UNIT/ML 3 ML VIAL SQ PRN ×2 (00:07→12:22)
[2017-03-05 04:00] VITALS: BP 127/47
--- NOTE | 2017-03-05 06:48 | NUR ---
MS/RN NOTES PT. IS LYING IN BED RESTING. BREATHING EVEN AND UNLABORED ON 2LPM O2 VIA NC. NO SOB, RESPIRATORY DISTRESS OR COMPLAINTS OF PAIN NOTED AT THIS TIME. PT. WITH RIGHT UPPER ARM MIDLINE PRESENT, PATENT AND INTACT. PT. WITH RIGHT GROIN HD CATH PRESENT AND INTACT. ALL PT. NEEDS MET. ENCOURAGED AND ASSISTED PT. TO TURN AND REPOSITION Q2H AND NEEDED. WILL ENDORSE TO DAYSHIFT NURSE FOR CONTINUITY OF CARE.
--- NOTE | 2017-03-05 07:30 | NUR ---
RN OPENING NOTES RECEIVED PT. IN BED AWAKE, A&OX4. BREATHING UNLABORED ON OXYGEN 2L/MIN. NO S/S OF ACUTE DISTRESS. PT. IS ON FLUID RESTRICTIONS 1000 ML PER DAY. PT. HAS SWALLOW SAFETY PRECAUTIONS ABOVE BED. RIGHT UPPER ARM MIDLINE IV ACCESS, AND RIGHT GROIN HD CATHETER. LAST HEMODIALYSIS WAS ON 03/04 WITH 1000 ML OUTPUT. BED IS IN LOWEST POSITION, 2 SIDE RAILS UP, AND INSTRUCTED PT. TO USE CALL LIGHT FOR ASSISTANCE.
[2017-03-05 07:50] LABS: BASOPHILS # (AUTO) 0.1 /CMM (0.0-0.2); BASOPHILS % (AUTO) 0.7 % (0.0-2.0); EOSINOPHILS # (AUTO) 0.4 /CMM (0.0-0.7); EOSINOPHILS % (AUTO) 4.2 % (0.0-6.0); HEMATOCRIT 28 % (33-45); LYMPHOCYTES # (AUTO) 0.9 /CMM (0.8-4.8); LYMPHOCYTES % (AUTO) 8.2 % (20.0-44.0); MEAN CORPUSCULAR HEMOGLOBIN 31 PG (26.0-33.0); MEAN CORPUSCULAR HGB CONC 32 g/dl (31.0-36.0); MEAN CORPUSCULAR VOLUME 95 fL (82-100); MONOCYTES # (AUTO) 1.1 /CMM (0.1-1.30); MONOCYTES % (AUTO) 10.6 % (2.0-12.0); NEUTROPHILS % (AUTO) 76.3 % (43.0-81.0); PLATELET COUNT (AUTO) 108 /CMM (150-450); RDW COEFFICIENT OF VARIATION 21.8 (11.5-15.0); RED BLOOD CELL COUNT(AUTO) 2.93 MIL/uL (4.0-5.2); WHITE BLOOD COUNT (AUTO) 10.5 K/uL (4.3-11.0)
[2017-03-05 08:00] VITALS: BP 132/54
[2017-03-05] MEDS: BOOST GLUCOSE CONTROL VANILLA 237 ML BOX PO SCH ×2 (08:00→17:19)
[2017-03-05 08:08] LABS: CALCIUM, SERUM 9.1 mg/dL (8.5-10.1); CARBON DIOXIDE 29 mmol/L (21-32); CHLORIDE 101 mmol/L (98-107); CREATININE 2.9 mg/dL (0.6-1.3); GLUCOSE 102 mg/dL (74-106); POTASSIUM 4.3 mmol/L (3.5-5.1); SODIUM SERUM 138 mmol/L (136-145); UREA NITROGEN, BLOOD 40 mg/dL (7-18)
[2017-03-05] MEDS: FAMOTIDINE/PF INJ 20 MG/2 ML VIAL IV SCH ×2 (09:18→21:25)
[2017-03-05] MEDS: ISOSORBIDE MONONITRATE (30MG) 30 MG TAB.SR.24H PO SCH (09:19)
[2017-03-05] MEDS: ASPIRIN 325 MG TABLET PO SCH (09:19)
[2017-03-05] MEDS: METOPROLOL TARTRATE 25 MG TABLET PO SCH ×2 (09:20→21:26)
[2017-03-05] MEDS: DULOXETINE HCL 20 MG CAPSULE.DR PO SCH (09:20)
[2017-03-05] MEDS: FUROSEMIDE 20 MG TABLET PO SCH ×2 (09:22→17:19)
[2017-03-05] MEDS: Z GUARD REMEDY 2 OZ OINT TP SCH (09:29)
[2017-03-05] MEDS: HYDROGEL DRESSING 90 GM TUBE TP SCH (09:30)
[2017-03-05 10:00] VITALS: BP 132/54
--- NOTE | 2017-03-05 10:00 | NUR ---
RN NOTES PT. HAD A MINOR NOSE BLEED THAT WAS STOPPED WHEN GAUZE WAS APPLIED. NO S/S OF ACTIVE BLEEDING NOTED. NASAL CANNULA WAS REMOVED. .
[2017-03-05 16:00] VITALS: BP 137/48
[2017-03-05] MEDS: LACTULOSE 10 G/15 ML UDC (PYXIS) PO PRN (17:59)
--- NOTE | 2017-03-05 18:00 | NUR ---
RN NOTES CHANGED SACRAL AREA DRESSING. SKIN IS INTACT. CLEANED SACRAL KUSHAL WITH NORMAL SALINE, AND APPLIED NEW MEPILEX.
--- NOTE | 2017-03-05 18:40 | NUR ---
RN CLOSING NOTES PT. IS COMFORTABLY SITTING UP IN CHAIR, A&OX4. BREATHING UNLABORED ON ROOM AIR, WITH NO S/S OF SOB, AND OXYGEN SATURATION 100%. NO S/S OF ACUTE DISTRESS, PT. DENIES PAIN. PT. IS ON FLUID RESTRICTIONS 1000 ML PER DAY, TOTAL FLUID INTAKE 565 ML. PT. HAS SWALLOW SAFETY PRECAUTIONS ABOVE BED, AND HAS BEEN TOLERATING PO INTAKE WITHOUT COMPLICATIONS. RIGHT UPPER ARM MIDLINE IV ACCESS, IS INTACT AND PATENT. PT. HAS RIGHT GROIN HD CATHETER. LAST HEMODIALYSIS WAS ON 03/04 WITH 1000 ML OUTPUT. BED IS IN LOWEST POSITION, 2 SIDE RAILS UP, AND INSTRUCTED PT. TO USE CALL LIGHT FOR ASSISTANCE. WILL ENDORSE REPORT TO NURSE.
--- NOTE | 2017-03-05 19:30 | NUR ---
MS RN INITIAL NOTE PT RECEIVED SITTING ON CHAIR NEXT TO BED. A/O X4 AND ABLE TO MAKE NEEDS KNOWN. ON ROOM AIR AND SATURATING WELL. IV KEVON MIDLINE PATENT, CLEAN AND FLUSHING WELL. R GROIN HD CATH IN PLACE AND CLEAN. BED IN LOWEST POSITION AND LOCKED IN PLACE. CALL LIGHT WITHIN EASY REACH AT ALL TIMES. WILL CONTINUE TO MONITOR.
[2017-03-05] MEDS: ATORVASTATIN 10 MG TABLET PO SCH (21:25)
[2017-03-05] MEDS: SENNOSIDES 8.6 MG TABLET PO SCH (21:27)
[2017-03-05 22:00] VITALS: BP 147/62
[2017-03-06] MEDS: BLOOD SUGAR DIAGNOSTIC 1 EACH STRIP IN SCH ×5 (00:30→23:35)
--- NOTE | 2017-03-06 00:43 | NUR ---
MS RN NOTE ACCU CHECK PERFORMED WITH LOW A RESULT. RECHECKED ON OTHER HAND WITH BLOOD SUGAR AT 98MG/DL. WILL CONTINUE TO MONITOR.
--- NOTE | 2017-03-06 07:05 | NUR ---
RN NOTE RECEIVED PT ON BED , A/Ox4, ABLE TO MAKE NEEDS KNOWN. RESPIRATION EVEN AND UNLABORED, SCHUYLER ANY DISTRESS ,ON ROOM AIR , R UA MIDLINE CDI, R GROIN HD CATH IN PLACE AND CLEAN. BED LOCKED AND IN LOWEST POSITION , CALL LIGHT WITHIN EASY REACH , WILL CONTINUE TO MONITOR PT CLOSELY AND NOTIFY MD FOR ANY SIGNIFICANT CHANGES
--- NOTE | 2017-03-06 07:40 | NUR ---
MS RN CLOSING NOTE PT REMAINED STABLE DURING SHIFT. ON ROOM AIR AND SATURATING WELL. ASSISTED TO THE RESTROOM SAFELY WITH A WALKER. KEPT CLEAN AND DRY AT ALL TIMES. ALL NEEDS ATTENDED TO PROMPTLY. 1000ML FLUID RESTRICTION OBSERVED. ALL DUE MEDS GIVEN ORDERED ANDF WELL TOLERATED. CALL LIGHT WITHIN REACH AT ALL TIMES. WILL ENDORSE TO NEXT SHIFT FOR CONTINUITY OF CARE.
[2017-03-06 07:41] LABS: BASOPHILS # (AUTO) 0.1 /CMM (0.0-0.2); EOSINOPHILS # (AUTO) 0.4 /CMM (0.0-0.7); HEMATOCRIT 27 % (33-45); HEMOGLOBIN 9.1 g/dL (11.5-14.8); LYMPHOCYTES # (AUTO) 0.9 /CMM (0.8-4.8); LYMPHOCYTES % (AUTO) 11.1 % (20.0-44.0); MEAN CORPUSCULAR HEMOGLOBIN 32 PG (26.0-33.0); MEAN CORPUSCULAR HGB CONC 33 g/dl (31.0-36.0); MEAN CORPUSCULAR VOLUME 96 fL (82-100); MONOCYTES # (AUTO) 0.8 /CMM (0.1-1.30); MONOCYTES % (AUTO) 10.1 % (2.0-12.0); NEUTROPHILS # (AUTO) 5.8 /CMM (1.8-8.9); NEUTROPHILS % (AUTO) 72.8 % (43.0-81.0); PLATELET COUNT (AUTO) 132 /CMM (150-450); RED BLOOD CELL COUNT(AUTO) 2.84 MIL/uL (4.0-5.2)
[2017-03-06 08:00] VITALS: BP 144/54
[2017-03-06 08:14] LABS: ALANINE AMINOTRANSFERASE 13 U/L (12-78); ALBUMIN 3.2 g/dL (3.4-5.0); ALKALINE PHOSPHATASE 104 U/L (46-116); ASPARTATE AMINOTRANSFERASE 26 U/L (15-37); BILIRUBIN,TOTAL 0.6 mg/dL (0.2-1.0); CALCIUM, SERUM 9.2 mg/dL (8.5-10.1); CARBON DIOXIDE 28 mmol/L (21-32); CHLORIDE 100 mmol/L (98-107); CREATININE 3.7 mg/dL (0.6-1.3); GLUCOSE 97 mg/dL (74-106); MAGNESIUM 2.1 mg/dL (1.8-2.4); PHOSPHORUS 4.4 mg/dL (2.5-4.9); POTASSIUM 4.8 mmol/L (3.5-5.1); SODIUM SERUM 137 mmol/L (136-145); UREA NITROGEN, BLOOD 48 mg/dL (7-18)
[2017-03-06 08:26] LABS: TOTAL PROTEIN, SERUM 6.7 g/dL (6.4-8.2)
[2017-03-06] MEDS: ASPIRIN 325 MG TABLET PO SCH (08:35)
[2017-03-06] MEDS: BOOST GLUCOSE CONTROL VANILLA 237 ML BOX PO SCH ×2 (08:35→17:02)
[2017-03-06] MEDS: FAMOTIDINE/PF INJ 20 MG/2 ML VIAL IV SCH ×2 (08:36→21:49)
[2017-03-06] MEDS: ISOSORBIDE MONONITRATE (30MG) 30 MG TAB.SR.24H PO SCH (08:36)
[2017-03-06] MEDS: DULOXETINE HCL 20 MG CAPSULE.DR PO SCH (08:36)
[2017-03-06] MEDS: FUROSEMIDE 20 MG TABLET PO SCH ×2 (08:36→17:02)
[2017-03-06] MEDS: METOPROLOL TARTRATE 25 MG TABLET PO SCH ×2 (08:38→21:49)
[2017-03-06] MEDS: Z GUARD REMEDY 2 OZ OINT TP PRN (08:40)
[2017-03-06] MEDS: HYDROGEL DRESSING 90 GM TUBE TP PRN (08:40)
[2017-03-06] MEDS: Z GUARD REMEDY 2 OZ OINT TP SCH (08:40)
[2017-03-06] MEDS: HYDROGEL DRESSING 90 GM TUBE TP SCH (08:40)
[2017-03-06] MEDS: INSULIN REGULAR, HUMAN 100 UNIT/ML 3 ML VIAL SQ PRN ×2 (11:39→17:04)
--- NOTE | 2017-03-06 12:00 | NUR ---
RN NOTES PT STABLE , SITTING ON A CHAIR, NO DISTRESS NOTED,
[2017-03-06 16:00] VITALS: BP_SYST 153; BP_DIAS 55; BP_DIAS 62
--- NOTE | 2017-03-06 18:52 | NUR ---
RN NOTES PT SITTING ON A CHAIR, CALL LIGHT WITHIN EASY REACH, SCHUYLER ANY DISTRESS, MEDICATED PER MD ORDER ,WILL ENDORSE TO AIR TECHNICIAN NURSE FOR CAILIN.
--- NOTE | 2017-03-06 19:15 | NUR ---
RN INITIAL NOTES RECEIVED PATIENT SITTING UP IN CHAIR. PATIENT IS ALERT AND ORIENTED, ABLE TO MAKE NEEDS KNOWN AND DENIES ANY PAIN AND DISCOMFORT. ON ROOM AIR, EVEN RESPIRATION, UNLABORED. PATIENT COMPLIANT WITH FLUID RESTRICTION ORDERED. PATIENT VERBALIZED REFUSAL FOR PLACEMENT OF PERM-A-CATH FOR HD ACCESS, REFUSES HD. PROVIDED PATIENT WITH HEALTH TEACHING NEEDED, REINFORCEMENT NEEDED, WANTS TO TALK AND DISCUSS WITH DR. MORALES FURTHER. KEVON MIDLINE ON SL, FLUSHED AND PATENT. R GROIN HD CATH WITH DRESSING INTACT. PATIENT'S NEEDS ANTICIPATED AND MET. SAFETY AND COMFORT ENSURED. CALL LIGHT IN REACH.
[2017-03-06] MEDS: SENNOSIDES 8.6 MG TABLET PO SCH (21:49)
[2017-03-06] MEDS: ATORVASTATIN 10 MG TABLET PO SCH (21:49)
[2017-03-06 22:00] VITALS: BP 154/71
--- NOTE | 2017-03-06 22:00 | NUR ---
RN NOTES PM CARE RENDERED, BED BATH PROVIDED REQUESTED BY PATIENT. PATIENT KEPT CLEAN AND DRY. SAFETY AND COMFORT ENSURED. ALL DUE HS MEDS GIVEN ORDERED, TOLERATED WELL. NO DISTRESS. NEEDS ANTICIPATED AND MET. CALL LIGHT IN REACH.
--- NOTE | 2017-03-07 01:28 | NUR ---
RN NOTES PATIENT SLEEPING COMFORTABLY, NO DISTRESS. ON ROOM AIR. SAFETY AND COMFORT ENSURED. CALL LIGHT IN REACH.
[2017-03-07 04:00] VITALS: BP 125/52
[2017-03-07] MEDS: BLOOD SUGAR DIAGNOSTIC 1 EACH STRIP IN SCH ×2 (05:51→12:12)
--- NOTE | 2017-03-07 06:59 | NUR ---
RN CLOSING NOTES PATIENT WITH NO ACUTE CHANGE IN CONDITION/DISTRESS OBSERVED OVERNIGHT. PATIENT REMAINS STABLE, NO DISTRESS. DENIES ANY PAIN AND DISCOMFORT. ALL DUE MEDS GIVEN ORDERED. NEEDS ANTICIPATED AND MET. SAFETY AND COMFORT ENSURED. BED IN LOW AND LOCKED POSITION. CALL LIGHT IN REACH. WILL ENDORSE ACCORDINGLY FOR CONTINUITY OF CARE.
[2017-03-07 08:00] VITALS: BP 130/55
[2017-03-07] MEDS: METOPROLOL TARTRATE 25 MG TABLET PO SCH (08:57)
[2017-03-07] MEDS: ASPIRIN 325 MG TABLET PO SCH (08:59)
[2017-03-07] MEDS: FUROSEMIDE 20 MG TABLET PO SCH (08:59)
[2017-03-07] MEDS: DULOXETINE HCL 20 MG CAPSULE.DR PO SCH ×2 (08:59→09:00)
[2017-03-07 09:00] VITALS: BP 130/55
[2017-03-07] MEDS: BOOST GLUCOSE CONTROL VANILLA 237 ML BOX PO SCH (09:00)
[2017-03-07] MEDS: FAMOTIDINE/PF INJ 20 MG/2 ML VIAL IV SCH (09:00)
[2017-03-07] MEDS: ISOSORBIDE MONONITRATE (30MG) 30 MG TAB.SR.24H PO SCH (09:00)
[2017-03-07] MEDS: HYDROGEL DRESSING 90 GM TUBE TP SCH (09:01)
[2017-03-07] MEDS: Z GUARD REMEDY 2 OZ OINT TP SCH (09:01)
[2017-03-07] MEDS: INSULIN REGULAR, HUMAN 100 UNIT/ML 3 ML VIAL SQ PRN (12:16)
--- NOTE | 2017-03-07 16:07 | NUR ---
DISCHARGE NOTE PATIENT LEFT IN STABLE CONDITION ACCOMPANIED BY 2 EMT. ON ROOM AIR, NO SOB. NO NEW WOUNDS, PHOTOS IN CHART. PROVIDED ALL NEEDS. EDUCATION AND MEDICATION LIST PROVIDED. FAMILY AT BED SIDE. PATIENT VERBALIZING COMFORT, NO ANXIETY AT THIS TIME. HD CATH REMOVED BY HD NURSE NO BLEEDING. KEVON MIDLINE REMOVED @ 1500, NO BLEEDING. VS CHECKED AND STABLE BASELINE. PT LEFT UNIT WITH PAPERWORK IN STABLE CONDITION.WRIST BANDS REMOVED. NO TELE BOX.
== END 2017-03-07 16:05 | DRG 280 ==
LOC: ER 19:11 → ICU 20:13 → TELE1 02-23 21:30 → MEDSG1 02-24 16:27
PROVIDERS: ADMIT Nurse Practitioner Acute Care; ATTEND Nurse Practitioner Acute Care
PROC: 5A09457 Assistance with Respiratory Ventilation, 24-96 Consecutive Hours, Continuous Positive Airway Pressure (ICD-10-PCS; principal; 2017-02-20)
PROC: 05H533Z Insertion of Infusion Device into Right Subclavian Vein, Percutaneous Approach (ICD-10-PCS; 2017-02-21)
PROC: 30233N1 Transfusion of Nonautologous Red Blood Cells into Peripheral Vein, Percutaneous Approach (ICD-10-PCS; 2017-02-22)
PROC: 06HM33Z Insertion of Infusion Device into Right Femoral Vein, Percutaneous Approach (ICD-10-PCS; 2017-02-26)
PROC: 5A1D60Z (ICD-10-PCS; 2017-02-26)
PROC: 02H633Z Insertion of Infusion Device into Right Atrium, Percutaneous Approach (ICD-10-PCS; 2017-02-26)
PROC: 0DBN8ZX Excision of Sigmoid Colon, Via Natural or Artificial Opening Endoscopic, Diagnostic (ICD-10-PCS; 2017-03-01)
PROC: 0DB58ZX Excision of Esophagus, Via Natural or Artificial Opening Endoscopic, Diagnostic (ICD-10-PCS; 2017-03-01)
PROC: 0DB68ZX Excision of Stomach, Via Natural or Artificial Opening Endoscopic, Diagnostic (ICD-10-PCS; 2017-03-01)
DX: I13.0 Hypertensive heart and chronic kidney disease with heart failure and stage 1 through stage 4 chronic kidney disease, or unspecified chronic kidney disease (principal); I50.41 Acute combined systolic (congestive) and diastolic (congestive) heart failure; I21.4 Non-ST elevation (NSTEMI) myocardial infarction; J96.01 Acute respiratory failure with hypoxia; N17.0 Acute kidney failure with tubular necrosis; L89.152 Pressure ulcer of sacral region, stage 2; K22.6 Gastro-esophageal laceration-hemorrhage syndrome; J90 Pleural effusion, not elsewhere classified; E22.2 Syndrome of inappropriate secretion of antidiuretic hormone; N18.4 Chronic kidney disease, stage 4 (severe); I50.43 Acute on chronic combined systolic (congestive) and diastolic (congestive) heart failure; I82.811 Embolism and thrombosis of superficial veins of right lower extremity; K22.10 Ulcer of esophagus without bleeding; E11.22 Type 2 diabetes mellitus with diabetic chronic kidney disease; Z88.1 Allergy status to other antibiotic agents; Z88.5 Allergy status to narcotic agent; Z87.01 Personal history of pneumonia (recurrent); Z82.49 Family history of ischemic heart disease and other diseases of the circulatory system; Z79.899 Other long term (current) drug therapy; Z79.02 Long term (current) use of antithrombotics/antiplatelets; Z82.3 Family history of stroke; D63.8 Anemia in other chronic diseases classified elsewhere; E78.5 Hyperlipidemia, unspecified; E83.42 Hypomagnesemia; E87.5 Hyperkalemia; F32.9 Major depressive disorder, single episode, unspecified; I25.10 Atherosclerotic heart disease of native coronary artery without angina pectoris; I25.2 Old myocardial infarction; I70.0 Atherosclerosis of aorta; K21.9 Gastro-esophageal reflux disease without esophagitis; M10.9 Gout, unspecified; M85.80 Other specified disorders of bone density and structure, unspecified site; Z95.810 Presence of automatic (implantable) cardiac defibrillator; D50.9 Iron deficiency anemia, unspecified; E11.40 Type 2 diabetes mellitus with diabetic neuropathy, unspecified; E11.51 Type 2 diabetes mellitus with diabetic peripheral angiopathy without gangrene; E11.65 Type 2 diabetes mellitus with hyperglycemia; J06.9 Acute upper respiratory infection, unspecified; Z79.01 Long term (current) use of anticoagulants; K29.70 Gastritis, unspecified, without bleeding; K64.8 Other hemorrhoids; K52.9 Noninfective gastroenteritis and colitis, unspecified; K63.89 Other specified diseases of intestine
CPT/HCPCS: 36415; 36569; 36600; 71010-TC; 76770-TC; 80048-TC; 80053-TC; 80061-TC; 80074; 80076-TC; 81000-TC; 82272-TC; 82570-TC; 82728-TC; 82746; 82803-TC; 82962-TC; 83540-TC; 83605-TC; 83735-TC; 83935-TC; 84100-TC; 84155-TC; 84300-TC; 84443-TC; 84484-TC; 85025-TC; 85730-TC; 86850-TC; 86921-TC; 87040-TC; 87081-TC; 88305-TC; 88313-TC; 88342; 90935-TC; 93307-TC; 93970-TC; 94762-TC; 94799-TC; 97110-TC; 97116-TC; 97530-TC; 99082-TC; A4216; A4606; A6248; A6402; J0610; J0696; J1644; J1815; J1940; J2704; J2916; J3475; J3490; J7030; J7042; J7050; J7060; P9016-BL; P9047; Z7610

== ENCOUNTER 2018-03-06 13:30 | Inpatient (IN) | payer MEDICARE, BC ==
[~2018-03-06] VITALS: Ht 152.4 cm; Wt 58.1 kg
[~2018-03-06 13:30] MED LIST: ACET325T53 PO; ALLO100T PO; ASPI-1169 PO; ATOR20TA PO; CARV25TA2 PO; CARV40CP PO; CLOP75TA15 PO; DOCU-141 PO; DULO20CA PO; FURO-145 PO; FURO20TA4 PO; ISOS30TA6 PO; LINA5TAB PO; LIRA0.6P SQ; LIRA0.6P2 SUBCUT; PANT40TA2 PO; PRAM0.253 PO; PRAM0.5T3 PO; SENN-167 PO; SEVE800T7 PO; TRAM50TA2 PO; VALS40TA4 PO
--- NOTE | 2018-03-06 13:39 | NUR ---
BB FAMILY, PT ASSISTED VIA WHEELCHAIR TO ED BED 10 W/ C/O SOB WHILE THEY'RE ON THEIR WAY TO DIALYSIS, PT WAS LAST DIALIZED ON MONDAY. PT GOWNED AND PLACED ON CONT CARDIAC AND POX MONITORING. PT SATTING AT 94-99% RA, APPLIED O2 VIA NC AT 2LPM. ALL NEEDS ARE ATTENDED, KEPT COMFORTABLE. WILL CONT TO MONITOR
[2018-03-06 14:04] LABS: BASOPHILS % (AUTO) 0.3 % (0.0-2.0); EOSINOPHILS % (AUTO) 1.8 % (0.0-6.0); HEMATOCRIT 32 % (33-45); HEMOGLOBIN 10.2 g/dL (11.5-14.8); LYMPHOCYTES # (AUTO) 0.6 /CMM (0.8-4.8); LYMPHOCYTES % (AUTO) 8.2 % (20.0-44.0); MEAN CORPUSCULAR HGB CONC 32 g/dl (31.0-36.0); MEAN CORPUSCULAR VOLUME 90 fL (82-100); MONOCYTES # (AUTO) 0.6 /CMM (0.1-1.30); MONOCYTES % (AUTO) 8.2 % (2.0-12.0); NEUTROPHILS # (AUTO) 5.6 /CMM (1.8-8.9); NEUTROPHILS % (AUTO) 81.5 % (43.0-81.0); PLATELET COUNT (AUTO) 110 /CMM (150-450); RDW COEFFICIENT OF VARIATION 20.3 (11.5-15.0); RED BLOOD CELL COUNT(AUTO) 3.51 MIL/uL (4.0-5.2); WHITE BLOOD COUNT (AUTO) 6.9 K/uL (4.3-11.0)
[2018-03-06 14:11] LABS: CALCIUM, SERUM 7.7 mg/dL (8.5-10.1); CARBON DIOXIDE 26 mmol/L (21-32); CHLORIDE 97 mmol/L (98-107); CREATININE 5.7 mg/dL (0.6-1.3); GLUCOSE 156 mg/dL (74-106); POTASSIUM 5.6 mmol/L (3.5-5.1); SODIUM SERUM 132 mmol/L (136-145); UREA NITROGEN, BLOOD 77 mg/dL (7-18)
[2018-03-06 14:14] LABS: INR 1.25 (0.85-1.15)
[2018-03-06 14:19] LABS: TROPONIN I 0.052 ng/mL (0.00-0.056)
[2018-03-06 14:28] LABS: ALANINE AMINOTRANSFERASE 17 U/L (12-78); ALBUMIN 2.6 g/dL (3.4-5.0); ALKALINE PHOSPHATASE 127 U/L (46-116); ASPARTATE AMINOTRANSFERASE 28 U/L (15-37); B-TYPE NATRIURETIC PEPTIDE 125334 PG/ML (0-125); BILIRUBIN,DIRECT 0.4 mg/dL (0.0-0.2); BILIRUBIN,TOTAL 0.8 mg/dL (0.2-1.0); TOTAL PROTEIN, SERUM 3.6 g/dL (6.4-8.2)
--- NOTE | 2018-03-06 14:53 | NUR ---
CALLED NURSING HAND CHAIN MAKER AND REQUESTED A TELE BED FOR THIS PT.
--- NOTE | 2018-03-06 15:29 | NUR ---
ADMIT TO ROOM 113-1
[2018-03-06] MEDS ORDERED: FUROSEMIDE 20 MG/2 ML VIAL IV ONE (15:30)
[2018-03-06] MEDS ORDERED: CARV25TA2 PO (15:34)
[2018-03-06] MEDS ORDERED: CALC667C6 PO (15:34)
[2018-03-06] MEDS ORDERED: METO25TA3 PO (15:34)
[2018-03-06] MEDS ORDERED: PARI1CAP3 PO (15:34)
[2018-03-06] MEDS ORDERED: ATOR40TA PO (15:34)
[2018-03-06] MEDS ORDERED: METO5TAB7 PO (15:34)
[2018-03-06] MEDS ORDERED: GLIP5TAB26 PO (15:34)
[2018-03-06] MEDS ORDERED: LIRA0.6P SQ (15:34)
[2018-03-06] MEDS ORDERED: ISOS30TA6 PO (15:34)
[2018-03-06] MEDS ORDERED: LINA5TAB PO (15:34)
[2018-03-06 16:00] VITALS: BP 131/81
[2018-03-06] MEDS: ISOSORBIDE MONONITRATE (30MG) 30 MG TAB.SR.24H PO SCH (16:00)
[2018-03-06] MEDS ORDERED: ZOLPIDEM TARTRATE 5 MG TABLET PO PRN (16:00)
[2018-03-06] MEDS ORDERED: MAG HYDROX/AL HYDROX/SIMETH 30 ML UDC PO PRN (16:00)
[2018-03-06] MEDS ORDERED: METOPROLOL SUCCINATE 25 MG TAB.SR.24H PO SCH (16:00)
[2018-03-06] MEDS ORDERED: ONDANSETRON HCL/PF 4 MG/2 ML VIAL IVP PRN (16:00)
[2018-03-06] MEDS ORDERED: Z GUARD REMEDY 2 OZ OINT TP PRN (16:00)
[2018-03-06] MEDS ORDERED: Paricalcitol 1 MCG PO SCH (16:00)
[2018-03-06] MEDS ORDERED: HYDROCODONE/APAP 5/325MG 1 EACH TABLET PO PRN (16:00)
[2018-03-06] MEDS ORDERED: MAGNESIUM HYDROXIDE 30 ML UDC PO PRN (16:00)
[2018-03-06] MEDS: CLOPIDOGREL BISULFATE 75 MG TABLET PO SCH (16:00)
--- NOTE | 2018-03-06 16:00 | NUR ---
RECEIVED REPORT FROM VLAD CASTRO ER. MED RECON DONE, ORDERS DONE.
[2018-03-06] MEDS ORDERED: FUROSEMIDE 20 MG/2 ML VIAL ONE (16:06)
--- NOTE | 2018-03-06 16:10 | NUR ---
PATIENT IS BEING ADMITTED TO ROOM 113-1, REPORT WAS GIVEN TO ALEX
--- NOTE | 2018-03-06 16:15 | NUR ---
SLUBBER RUNNER NOTES RECEIVED PT FROM VLAD CASTRO. PT PLACED ON O2 AT 2L NC. PT ORIENTED TO ROOM. CALL LIGHT WITHIN REACH. INITIAL ASSESSMENT DONE.
[2018-03-06 16:30] VITALS: BP 131/81
[2018-03-06] MEDS: CALCIUM ACETATE 667 MG TABLET PO SCH (19:04)
[2018-03-06] MEDS: LINAGLIPTIN 5 MG TABLET PO SCH (19:04)
--- NOTE | 2018-03-06 19:06 | NUR ---
INSTALLATION TECH NOTES PATIENT REFUSED IMDUR 30MG, PATIENT STATES I DONT HAVE CHEST PAIN. REFUSED PLAVIX 75MG STATES SHE ALREADY HAD IT TODAY AT NOON.
[2018-03-06 20:00] VITALS: BP 130/72
--- NOTE | 2018-03-06 20:00 | NUR ---
RN NOTES RECEIVED PATIENT IN BED A/OX3, NO SOB, NO COMPLAIN OF PAIN AT THIS TIME, ON 2L O2 VIA NC WITH SPO2 OF 100%. SR WITH V PACING ON TELE MONITOR, HR 71. RIGHT CHEST WALL HD CATHETER IN PLACE, INTACT, RIGHT AC 20G IV LINE IS INTACT, PATIENT WO IV FLUIDS. LEFT CHEST WALL ICD IN PLACE. ALL SAFETY MEASURES ARE IMPLEMENTED, BED IN LOW, LOCKED POSITION, CALL LIGHT IN REACH. WILL CONTINUE TO MONITOR.
--- NOTE | 2018-03-06 20:32 | NUR ---
TELE1/RN END NOTES NO ACUTE CHANGE OF CONDITION NOTED SINCE PT WAS ADMITTED LATE TODAY. ADMISSION PROTOCOLS COMPLETED. ALL NEEDS MET. PT IS EXPECTED FOR A DIALYSIS TREATMENT TOMORROW. PT ENDORSED TO PM NURSE TO CONTINUE CARE. ALSO ENDORSED TO PLACE DVT SLEEVE PER VTE SCORE PROTOCOLS. CL WITHIN REACHED AND SAFETY MAINTAINED.
[2018-03-06] MEDS: ATORVASTATIN 40 MG TABLET PO SCH (22:39)
[2018-03-06] MEDS: CARVEDILOL 12.5 MG TABLET PO SCH (22:43)
[2018-03-07] VITALS: BP 114/56
--- NOTE | 2018-03-07 02:44 | NUR ---
RN NOTES PATIENT IN BED, ALERT, ORIENTED X1, ON VENT, NON VERBAL TOLERATING VENT SETTINGS WELL. SR ON ARCHIVIST MILITARY HISTORY WITH HR 88.NO ACUTE CHANGES NOTED DURING MY SHIFT, NO COMPLAIN OF PAIN, NO SOB, PATIENT IS IN STABLE CONDITION. PATIENT HAD ONE SOFT BM, WOUND CARE PROVIDED. ALL NEEDS ARE ATTAINED , ALL SAFETY MEASURES ARE IMPLEMENTED, BED IN LOW, LOCKED POSITION, CALL LIGHT IN REACH. PATIENT CARE WILL BE TRANSFERRED TO MATTHEW HASSAN FOR CONTINUITY OF PATIENT CARE. Addendum: 03/07/18 at 0254 by SHARLA TRIPP RN DISREGARD THE NOTE ABOVE, WRONG PATIENT DOCUMENTATION.
[2018-03-07 04:00] VITALS: BP 95/40
[2018-03-07 06:46] LABS: ALANINE AMINOTRANSFERASE 10 U/L (12-78); ALBUMIN 2.3 g/dL (3.4-5.0); ALKALINE PHOSPHATASE 106 U/L (46-116); ASPARTATE AMINOTRANSFERASE 30 U/L (15-37); BILIRUBIN,TOTAL 0.8 mg/dL (0.2-1.0); CALCIUM, SERUM 7.8 mg/dL (8.5-10.1); CARBON DIOXIDE 22 mmol/L (21-32); CHLORIDE 97 mmol/L (98-107); CREATININE 5.9 mg/dL (0.6-1.3); GLUCOSE 98 mg/dL (74-106); POTASSIUM 5.4 mmol/L (3.5-5.1); SODIUM SERUM 131 mmol/L (136-145); TOTAL PROTEIN, SERUM 5.5 g/dL (6.4-8.2)
[2018-03-07 06:47] LABS: UREA NITROGEN, BLOOD 84 mg/dL (7-18)
[2018-03-07 06:59] LABS: BASOPHILS % (AUTO) 0.4 % (0.0-2.0); EOSINOPHILS % (AUTO) 2.2 % (0.0-6.0); HEMATOCRIT 30 % (33-45); HEMOGLOBIN 9.1 g/dL (11.5-14.8); LYMPHOCYTES % (AUTO) 6.7 % (20.0-44.0); MEAN CORPUSCULAR HGB CONC 31 g/dl (31.0-36.0); MEAN CORPUSCULAR VOLUME 94 fL (82-100); MONOCYTES % (AUTO) 5.9 % (2.0-12.0); NEUTROPHILS % (AUTO) 84.8 % (43.0-81.0); PLATELET COUNT (AUTO) 114 /CMM (150-450); RDW COEFFICIENT OF VARIATION 21.5 (11.5-15.0); RED BLOOD CELL COUNT(AUTO) 3.18 MIL/uL (4.0-5.2); WHITE BLOOD COUNT (AUTO) 7.2 K/uL (4.3-11.0)
[2018-03-07 07:00] LABS: LYMPHOCYTES # (AUTO) 0.5 /CMM (0.8-4.8); MONOCYTES # (AUTO) 0.4 /CMM (0.1-1.30); NEUTROPHILS # (AUTO) 6.1 /CMM (1.8-8.9)
[2018-03-07 07:40] LABS: CHOLESTEROL 72 mg/dL (<200); HDL CHOLESTEROL 25 mg/dL (40-60); LDL 47 mg/dL (0-99); TRIGLYCERIDES 61 mg/dL (30-150)
--- NOTE | 2018-03-07 07:45 | NUR ---
GROUND SERVICE EQUIPMENT MECHANIC NOTES PT IN BED, AWAKE, ALERT AND ORIENTED, RESPIRATIONS NORMAL, WITH COMPLAINT OF SLIGHT LEFT LEG PAIN, DOES NOT WANT ANY PAIN MED AT THIS TIME, STATED THAT IT IS NOT A NEW PAIN AND SHE'S BEEN HAVING IT FOR A LONG TIME, KEPT LEFT LEG ELEVATED, WILL CONTINUE TO MONITOR. CALL LIGHT WITHIN REACH.
[2018-03-07 08:00] VITALS: BP 100/42
--- NOTE | 2018-03-07 08:30 | NUR ---
SHAREBROKER NOTES PT IN BED, EATING BREAKFAST, PT SEEN AND EXAMINED BY DR. HOLBROOK, PLAN OF CARE DISCUSSED WITH PT, VERBALIZED UNDERSTANDING, MD AWARE OF PT'S LEFT LEG PAIN, CALL LIGHT WITHIN REACH, NEEDS ATTENDED.
[2018-03-07] MEDS ORDERED: GLIPIZIDE XL 5 MG TAB.OSM.24 PO SCH (09:00)
[2018-03-07] MEDS: ISOSORBIDE MONONITRATE (30MG) 30 MG TAB.SR.24H PO SCH (09:00)
[2018-03-07] MEDS: LINAGLIPTIN 5 MG TABLET PO SCH (09:00)
[2018-03-07] MEDS: CARVEDILOL 12.5 MG TABLET PO SCH ×2 (09:00→22:34)
--- NOTE | 2018-03-07 09:00 | NUR ---
INSURANCE COMPLIANCE ANALYST NOTES BP MEDS NOT GIVEN, PT WILL HAVE DIALYSIS TODAY, BP 100/42 HR 61.
[2018-03-07] MEDS: METOLAZONE 2.5 MG TABLET PO SCH (09:06)
[2018-03-07] MEDS: CLOPIDOGREL BISULFATE 75 MG TABLET PO SCH (09:06)
[2018-03-07] MEDS: CALCIUM ACETATE 667 MG TABLET PO SCH ×2 (09:06→16:37)
--- NOTE | 2018-03-07 10:28 | NUR ---
WOUND CARE CONSULT: PT PRESENTS WITH GENERALIZED EDEMA, RT NECK BRUISING AND DEEP TISSUE INJURY TO SACRUM (INTACT), PRESENT ON ADMISSION. PT ON CASEY ISOFLEX LOW AIRLOSS BED. ALL SKIN PROTECTION AND WOUND CARE RECOMMENDATIONS DISCUSSED WITH NURSING STAFF. CURRENT YANIRA SCORE IS 18. WILL SEE PRN. TURK IN AGREEMENT WITH PLAN OF CARE. Addendum: 03/07/18 at 1030 by KARTHIKEYAN ESTEBAN Amended: Links added. Addendum: 03/07/18 at 1227 by KARTHIKEYAN NORTHU SPOKE WITH PT, NURSING STAFF AND PT CAREGIVER REGARDING IMPORTANCE OF OFFLOADING SACRUM. PT CAREGIVER STATED THAT PT SITS IN RECLINER A LOT AT HOME.
[2018-03-07 12:00] VITALS: BP 119/44
[2018-03-07 16:00] VITALS: BP 108/67
--- NOTE | 2018-03-07 18:22 | NUR ---
RN MS NOTES PT IN BED, AWAKE, ALERT AND ORIENTED, DENIES PAIN, NOT IN DISTRESS, CAREGIVER AT BEDSIDE, TOLERATING CURRENT DIET WELL, TURNED AND REPOSITIONED Q2 HOURS, KEPT SKIN CLEAN AND DRY, AWAITING DIALYSIS, DIALYSIS NURSE INFORMED, TO BE DIALYZED TONIGHT, CALL LIGHT WITHIN REACH, ALL NEEDS ATTENDED.
[2018-03-07 20:00] VITALS: BP_SYST 105; BP_SYST 109; BP_DIAS 31; BP_DIAS 36
--- NOTE | 2018-03-07 20:00 | NUR ---
RN NOTES RECEIVED PT IN BED, AWAKE, ALERT AND ORIENTED, DENIES PAIN, NOT IN DISTRESS, CAREGIVER AT BEDSIDE,DIALYSIS NURSE AT BEDSIDE STARTED HD, PATIENT COMPLAIN OF SOB B/P 109/31, RR 22 ON 2L O2 VIA NC WITH SPO2 OF 100% HR 62 AND NO FIVER. CALL LIGHT WITHIN REACH, ALL SAFETY MEASURES ARE IMPLEMENTED. WILL CONT. TO MONITOR.
--- NOTE | 2018-03-07 21:45 | NUR ---
RN NOTES HD IS DONE AND 1.5L WAS OUT. PATIENT TOLERATED HD WELL. NO COMPLAIN OF SOB, NO PAIN. WILL CONT. TO MONITOR.
[2018-03-07] MEDS: ATORVASTATIN 40 MG TABLET PO SCH (22:32)
[2018-03-08] VITALS: BP 105/36
--- NOTE | 2018-03-08 01:13 | NUR ---
RN NOTES PATIENT IS REFUSING SCD PUMPS FOR NOW. WILL TRY TO ASK PATIENT LATER AGAIN.
[2018-03-08] MEDS ORDERED: DEXTROSE 50%-WATER 50 ML DISP.SYRIN ONE (03:32)
--- NOTE | 2018-03-08 03:35 | NUR ---
RN NOTES PATIENT IS DIAPHORETIC AND LETHARGIC, BLOOD GLUCOSE CHECKED AND IT WAS 36. GUIDE DOMESTIC TOUR KAREN GRUBBS NOTIFIED AND IV PUSH DEXTROSE X1 WAS ADMINISTERED AT 0335. GLUCOSE CHECKED AFTER 15 MINUTES AND IT WAS 168 AND PATIENT WAS ALERT ORIENTED AND RESPONSIVE.
[2018-03-08 04:00] VITALS: BP 104/36
[2018-03-08 06:01] VITALS: BP 117/67
[2018-03-08 06:32] LABS: ALANINE AMINOTRANSFERASE 12 U/L (12-78); ALBUMIN 2.3 g/dL (3.4-5.0); ALKALINE PHOSPHATASE 112 U/L (46-116); ASPARTATE AMINOTRANSFERASE 34 U/L (15-37); BILIRUBIN,TOTAL 0.8 mg/dL (0.2-1.0); CALCIUM, SERUM 7.6 mg/dL (8.5-10.1); CARBON DIOXIDE 25 mmol/L (21-32); CHLORIDE 98 mmol/L (98-107); CREATININE 4.9 mg/dL (0.6-1.3); GLUCOSE 132 mg/dL (74-106); POTASSIUM 4.4 mmol/L (3.5-5.1); SODIUM SERUM 133 mmol/L (136-145); TOTAL PROTEIN, SERUM 5.4 g/dL (6.4-8.2); UREA NITROGEN, BLOOD 66 mg/dL (7-18)
--- NOTE | 2018-03-08 07:10 | NUR ---
RESIDUE FURNACE OPERATOR OPENING NOTES RECEIVED REPORT FROM PM NURSE.PATIENT ON BED .AXOX3.ON O2 3L VIA NASAL CANULA.NO SOB NO DISTRESS NOTED AT THIS TIME.DENIED CHEST PAIN.SHOELACE TIPPING MACHINE OPERATOR AT BEDSIDE.SALINE LOC LEFT AC INTACT AND PATENT.R CHEST WALL HD CATH INTACT.L UPPER CHEST WALL ICD.CALL LIGHT IN REACH.BED IS LOCKED AND IN LOW POSITION.SRX3.WILL CONTINUE TO MONITOR.
[2018-03-08] MEDS: BLOOD SUGAR DIAGNOSTIC 1 EACH STRIP IN SCH ×4 (07:52→21:48)
[2018-03-08 08:00] VITALS: BP 116/51
[2018-03-08] MEDS: ISOSORBIDE MONONITRATE (30MG) 30 MG TAB.SR.24H PO SCH (08:25)
[2018-03-08] MEDS: METOLAZONE 2.5 MG TABLET PO SCH (08:25)
[2018-03-08] MEDS: CLOPIDOGREL BISULFATE 75 MG TABLET PO SCH (08:25)
[2018-03-08] MEDS: CALCIUM ACETATE 667 MG TABLET PO SCH ×2 (08:25→18:03)
[2018-03-08] MEDS: CARVEDILOL 12.5 MG TABLET PO SCH ×2 (08:25→21:48)
[2018-03-08] MEDS: LINAGLIPTIN 5 MG TABLET PO SCH (08:31)
[2018-03-08] MEDS ORDERED: glipiZIDE XL 2.5 MG TAB.OSM.24 PO SCH (09:00)
--- NOTE | 2018-03-08 09:30 | NUR ---
MS RN NOTES SEEN BY ,UPDATED ABOUT PATIENT CONDITION,HYPOGLYCEMIC EPISODE FROM LAST NIGHT.ADJUSTED MEDS.GOT NEW ORDERS FOR INCENTIVE SPIROMETRY TOLERATED AND TO KEEP O2 ABOVE 94%.
[2018-03-08 10:05] LABS: BASOPHILS % (AUTO) 0.5 % (0.0-2.0); EOSINOPHILS % (AUTO) 0.5 % (0.0-6.0); HEMATOCRIT 29 % (33-45); LYMPHOCYTES % (AUTO) 4.8 % (20.0-44.0); MEAN CORPUSCULAR HGB CONC 31 g/dl (31.0-36.0); MEAN CORPUSCULAR VOLUME 92 fL (82-100); MONOCYTES % (AUTO) 6.5 % (2.0-12.0); NEUTROPHILS % (AUTO) 87.7 % (43.0-81.0); PLATELET COUNT (AUTO) 106 /CMM (150-450); RDW COEFFICIENT OF VARIATION 20.5 (11.5-15.0); RED BLOOD CELL COUNT(AUTO) 3.18 MIL/uL (4.0-5.2); WHITE BLOOD COUNT (AUTO) 7.6 K/uL (4.3-11.0)
[2018-03-08 10:06] LABS: LYMPHOCYTES # (AUTO) 0.4 /CMM (0.8-4.8); MONOCYTES # (AUTO) 0.5 /CMM (0.1-1.30); NEUTROPHILS # (AUTO) 6.7 /CMM (1.8-8.9)
--- NOTE | 2018-03-08 11:00 | NUR ---
RN NOTES SEEN BY ,PATIENT WILL BE HAVING DIALYSIS TODAY.
--- NOTE | 2018-03-08 13:41 | NUR ---
PATIENT HAVING DIALYSIS TREATMENT. GO BACK BY 3PM (PER TECH) TO PERFORM DUPLEX VENOUS LOWER EXT RIGHT.
[2018-03-08 16:00] VITALS: BP 96/54
--- NOTE | 2018-03-08 18:00 | NUR ---
RN NOTES PATIENT C/O SOB.VITAL SIGNS STABLE ON O2 2L VIA NASAL CANULA.SATURATING 96-98%.NOTED WITH MILD WHEEZING WHILE AUSCULTATION. MADE AWARE.GOT NEW ORDERS. RT MADE AWARE FOR NEW TREATMENT ORDERS.HOB ELEVATED.WILL CONTINUE TO MONITOR.
--- NOTE | 2018-03-08 18:56 | NUR ---
WALNUT DEHYDRATOR OPERATOR CLOSING NOTES .PATIENT ON BED .AXOX3.ON O2 2L VIA NASAL CANULA.NO SOB NO DISTRESS NOTED AT THIS TIME.SATURATING 98%.DENIED CHEST PAIN.ELEMENTARY SCHOOL TUTOR AT BEDSIDE.SALINE LOC LEFT AC INTACT AND PATENT.R CHEST WALL HD CATH INTACT.L UPPER CHEST WALL ICD.CALL LIGHT IN REACH.BED IS LOCKED AND IN LOW POSITION.SRX3.WILL ENDORSE TO PM NURSE FOR CAILIN.
[2018-03-08 20:00] VITALS: BP 97/46
--- NOTE | 2018-03-08 20:15 | NUR ---
RN OPENING NOTES RECEIVED REPORT FROM EDU CASTRO. PATIENT A/A/O X2-3, ABLE TO MAKE NEEDS KNOWN. BREATHING EVEN & UNLABORED, TOLERATING O2 @ 2LPM VIA NC. DENIES SOB OR DIFFICULTY BREATHING. RADIAL PULSES PRESENT & BOUNDING. RIGHT AC IV #20 INTACT & PATENT W/ DRESSING CDI, SALINE LOCKED. RIGHT CHEST WALL HD CATH W/ DRESSING CDI. DENIES ANY PAIN OR DISCOMFORT @ THIS TIME. REFUSES TO BE TURNED & REPOSITIONED @ THIS TIME. SAFETY MEASURES IN PLACE W/ BED ALARM ON & CALL LIGHT WITHIN REACH. CAREGIVER @ BEDSIDE. WILL CONTINUE TO MONITOR.
[2018-03-08] MEDS: ACETAMINOPHEN 325 MG TABLET PO PRN (20:22)
[2018-03-08] MEDS: IPRATROPIUM NEB FS 0.5 MG/2.5 ML AMPUL.NEB NEB PRN (21:45)
[2018-03-08] MEDS: ALBUTEROL FS 2.5 MG/0.5 ML VIAL.NEB NEB PRN (21:45)
[2018-03-08] MEDS: ATORVASTATIN 40 MG TABLET PO SCH (21:45)
[2018-03-08] MEDS: INSULIN REGULAR, HUMAN 100 UNIT/ML 3 ML VIAL SQ PRN (21:53)
[2018-03-09 04:00] VITALS: BP 82/24
--- NOTE | 2018-03-09 04:45 | NUR ---
RN NOTES INFORMED KAREN CHIEF ACCOUNTING OFFICER OF PT'S SBP IN 80S. PATIENT IS ASYMPTOMATIC & EASILY AROUSABLE. NO NEW ORDERS @ THIS TIME. WILL CONTINUE TO MONITOR.
[2018-03-09 06:29] LABS: HEMATOCRIT 27 % (33-45); HEMOGLOBIN 8.4 g/dL (11.5-14.8); LYMPHOCYTES # (AUTO) 0.4 /CMM (0.8-4.8); LYMPHOCYTES % (AUTO) 1.7 % (20.0-44.0); MEAN CORPUSCULAR HGB CONC 31 g/dl (31.0-36.0); MEAN CORPUSCULAR VOLUME 95 fL (82-100); MONOCYTES # (AUTO) 0.5 /CMM (0.1-1.30); MONOCYTES % (AUTO) 2.3 % (2.0-12.0); NEUTROPHILS # (AUTO) 21.1 /CMM (1.8-8.9); PLATELET COUNT (AUTO) 109 /CMM (150-450); RDW COEFFICIENT OF VARIATION 21.2 (11.5-15.0)
[2018-03-09 06:54] LABS: CALCIUM, SERUM 7.4 mg/dL (8.5-10.1); CARBON DIOXIDE 25 mmol/L (21-32); CHLORIDE 102 mmol/L (98-107); CREATININE 4.2 mg/dL (0.6-1.3); GLUCOSE 73 mg/dL (74-106); MAGNESIUM 1.6 mg/dL (1.8-2.4); PHOSPHORUS 2.7 mg/dL (2.5-4.9); POTASSIUM 4.5 mmol/L (3.5-5.1); SODIUM SERUM 137 mmol/L (136-145); UREA NITROGEN, BLOOD 47 mg/dL (7-18)
[2018-03-09] MEDS: BLOOD SUGAR DIAGNOSTIC 1 EACH STRIP IN SCH ×4 (07:30→21:26)
[2018-03-09 08:00] VITALS: BP_SYST 87; BP_DIAS 29; BP_DIAS 39
[2018-03-09] MEDS: CALCIUM ACETATE 667 MG TABLET PO SCH ×2 (08:45→17:38)
[2018-03-09] MEDS: METOLAZONE 2.5 MG TABLET PO SCH (08:46)
[2018-03-09 08:49] LABS: BAND % (MANUAL) 4 % (0.0-5.0); LYMPHOCYTES % (MANUAL) 3 % (16-48); MONOCYTES % (MANUAL) 4 % (0-11.0); NEUTROPHILS % (MANUAL) 89 (42-76)
[2018-03-09] MEDS: CARVEDILOL 12.5 MG TABLET PO SCH ×2 (08:50→21:00)
[2018-03-09] MEDS: ISOSORBIDE MONONITRATE (30MG) 30 MG TAB.SR.24H PO SCH (08:51)
[2018-03-09] MEDS: glipiZIDE XL 2.5 MG TAB.OSM.24 PO SCH (08:52)
[2018-03-09] MEDS: CLOPIDOGREL BISULFATE 75 MG TABLET PO SCH (08:52)
[2018-03-09] MEDS ORDERED: Magnesium 1GM/D5W 100ML PREMIX 100 ML IV SCH (09:41)
[2018-03-09] MEDS ORDERED: IV NS 0.9% 250 ML IV ONE (13:00)
[2018-03-09] MEDS ORDERED: FEE PK DOSING 1 MIN EA MC ONE (14:48)
[2018-03-09] MEDS ORDERED: VANCOMYCIN 500 MG in IV D5W 100 ML IV PRN (15:00)
[2018-03-09] MEDS ORDERED: VANCOMYCIN 1 GM in IV D5W 250 ML IV ONE (15:00)
[2018-03-09 16:00] VITALS: BP 110/67
[2018-03-09] MEDS ORDERED: PIPERACILLIN /TAZOBACTAM 2.25 G in IV D5W 50 ML IV SCH (16:00)
[2018-03-09 20:00] VITALS: BP 87/43
--- NOTE | 2018-03-09 20:05 | NUR ---
RN OPENING NOTES RECEIVED REPORT FROM AM RN. PATIENT A/A/O X2-3, ABLE TO MAKE NEEDS KNOWN. BREATHING EVEN & UNLABORED, TOLERATING O2 @ 2LPM VIA NC. DENIES SOB OR DIFFICULTY BREATHING. RADIAL PULSES PRESENT & BOUNDING. RIGHT AC IV #20 INTACT & PATENT W/ DRESSING CDI, SALINE LOCKED. RIGHT CHEST WALL HD CATH W/ DRESSING CDI. DENIES ANY PAIN OR DISCOMFORT @ THIS TIME. SAFETY MEASURES IN PLACE W/ BED ALARM ON & CALL LIGHT WITHIN REACH. CAREGIVER @ BEDSIDE. WILL CONTINUE TO MONITOR.
[2018-03-09] MEDS: PIPERACILLIN /TAZOBACTAM 2.25 G in IV D5W 50 ML IV SCH (20:54)
[2018-03-09] MEDS: ATORVASTATIN 40 MG TABLET PO SCH (21:25)
[2018-03-09] MEDS: INSULIN REGULAR, HUMAN 100 UNIT/ML 3 ML VIAL SQ PRN (21:25)
[2018-03-09] MEDS: ACETAMINOPHEN 325 MG TABLET PO PRN (22:22)
[2018-03-10] VITALS (79 sets, daily range): BP systolic 53–148; BP diastolic 19–90
[2018-03-10] MEDS: PIPERACILLIN /TAZOBACTAM 2.25 G in IV D5W 50 ML IV SCH ×3 (05:04→20:41)
[2018-03-10] MEDS ORDERED: ALBUMIN 25% 25 GM in PREMIX 1 EA IV STA (07:14)
[2018-03-10 07:22] LABS: CARBON DIOXIDE 23 mmol/L (21-32); CHLORIDE 102 mmol/L (98-107); GLUCOSE 59 mg/dL (74-106); MAGNESIUM 1.6 mg/dL (1.8-2.4); PHOSPHORUS 2.8 mg/dL (2.5-4.9); POTASSIUM 4.4 mmol/L (3.5-5.1); SODIUM SERUM 136 mmol/L (136-145); UREA NITROGEN, BLOOD 54 mg/dL (7-18)
[2018-03-10 07:28] LABS: BASOPHILS % (AUTO) 0.3 % (0.0-2.0); EOSINOPHILS % (AUTO) 0.5 % (0.0-6.0); HEMATOCRIT 24 % (33-45); HEMOGLOBIN 7.7 g/dL (11.5-14.8); LYMPHOCYTES # (AUTO) 0.5 /CMM (0.8-4.8); LYMPHOCYTES % (AUTO) 3.8 % (20.0-44.0); MEAN CORPUSCULAR HGB CONC 32 g/dl (31.0-36.0); MEAN CORPUSCULAR VOLUME 94 fL (82-100); MONOCYTES # (AUTO) 0.7 /CMM (0.1-1.30); MONOCYTES % (AUTO) 4.7 % (2.0-12.0); NEUTROPHILS % (AUTO) 90.7 % (43.0-81.0); PLATELET COUNT (AUTO) 103 /CMM (150-450); RDW COEFFICIENT OF VARIATION 22.5 (11.5-15.0); RED BLOOD CELL COUNT(AUTO) 2.56 MIL/uL (4.0-5.2); WHITE BLOOD COUNT (AUTO) 14.4 K/uL (4.3-11.0)
[2018-03-10] MEDS: BLOOD SUGAR DIAGNOSTIC 1 EACH STRIP IN SCH ×4 (08:02→21:24)
[2018-03-10] MEDS: DEXTROSE 50%-WATER 50 ML DISP.SYRIN IV PRN (08:45)
[2018-03-10 08:58] LABS: ABG BASE EXCESS -3.9 mmol/L; ABG PCO2 41.4 mmHg (35.0-45.0); ABG PH 7.337 (7.350-7.450); ABG PO2 436.1 mmHg (75.0-100.0); AaDO2 235.5 mmHg; COHb 0.3 % (0.5-1.5); MetHb 0.7 % (0.0-1.5); SITE, ABG Right Radial; VENT MODE, BG NRB 100%
[2018-03-10] MEDS: ISOSORBIDE MONONITRATE (30MG) 30 MG TAB.SR.24H PO SCH (09:00)
[2018-03-10] MEDS: CALCIUM ACETATE 667 MG TABLET PO SCH ×2 (09:00→16:32)
[2018-03-10] MEDS: CARVEDILOL 12.5 MG TABLET PO SCH (09:00)
[2018-03-10] MEDS: METOLAZONE 2.5 MG TABLET PO SCH (09:00)
[2018-03-10] MEDS: glipiZIDE XL 2.5 MG TAB.OSM.24 PO SCH (09:00)
[2018-03-10] MEDS: CLOPIDOGREL BISULFATE 75 MG TABLET PO SCH (09:00)
--- NOTE | 2018-03-10 09:00 | NUR ---
RN NOTE About 0840 pt co sob during the final period of hd and after hd pt saturation dropped to 90% on nc 3 l/min, later saturation was 80%, pt was put on non rebreather mask. called rapid response team. pt's O2 saturation went up 95-97%, but still pt co being short of breath. dr Corrigan at bedside, ordered ABG, CXR stat, to put her on bi-pap and transfer her to ICU. VS stable. Report given to Madalyn SCHOOL BUS INSPECTOR at 0900.
--- NOTE | 2018-03-10 09:05 | NUR ---
RN INITIAL NOTES RECEIVED PT DROWSY, A/OX1 FROM [facility] AFTER SPACE SYSTEMS OPERATIONS MANAGER DUE TO SOB AND LOW 02 SAT. PT CONNECTED TO MONITOR, V PACING AT 60S. PLACED ON BIPAP. ABG DONE, AWAITING FOR RESULT. PT FOR CXR. PT HAS RAC#20, LEAKING. PT FOR MIDLINE INSERTION. PT COMFORTABLE. HOB ELEVATED. NO SIGNS OF PAIN NOTED. BLE ELEVATED. DR HOLBROOK AWARE OF TRANSFER. WILL CLOSELY MONITOR.
--- NOTE | 2018-03-10 09:10 | NUR ---
Rapid response called in room 113-1, pt alert, follows commands, s/p HD just finished at 08:30, cleaned the blood only, on non rebreather, SOB, v/s stable, sat well, Dr. Corrigan at the bedside, ABGs and cxr done, pt transferred to ICU room 253 ACLS followed, pt on Bipap now, v/s stable, no pain.
--- NOTE | 2018-03-10 09:17 | NUR ---
PT. IS AWAKE AND FOLLOW COMMANDS, PLACED ON BIPAP PER DR. HOLBROOK DUE TO INCREASED WOB. IPAP 15 EPAP 10 FREQ. 12 FIO2 30% BREATH SOUNDS CLEAR BILATERAL. Addendum: 03/10/18 at 0920 by ROXANNE MORTON RT Amended: Links added.
[2018-03-10] MEDS ORDERED: NOREPINEPHRINE 16 MG in IV D5W 500 ML IV PRN (10:30)
[2018-03-10] MEDS: ALBUMIN 25% 25 GM in PREMIX 1 EA IV PRN (10:47)
--- NOTE | 2018-03-10 11:24 | NUR ---
fio2 decreased from 30% to 24% due spo2 100%. Addendum: 03/10/18 at 1125 by ROXANNE MORTON RT Amended: Links added.
--- NOTE | 2018-03-10 12:00 | NUR ---
RN NOTES 1000 LILLIANA MCKEON, DNP AT BEDSIDE FOR MIDLINE INSERTION, TOLERATED PROCEDURE WELL. SEEN AND EXAMINED BY DR BUCHANAN. PT ON BIPAP. PT FROM [facility], PHARMACIST AIDE CALLED DUE TO LOW 02 SAT AND SOB. AWARE OF LATEST ABG AND CXR RESULT. WILL CLOSELY MONITOR. 1200 SEEN AND EXAMINED BY DR BARRON. AWARE OF CURRENT LAB VALUES AND CXR RESULT. PT FOR HD AGAIN TODAY. PT GIVEN ALBUMIN 25% IV AND LEVO INFUSING, WILL TITRATE ACCORDINGLY. WILL START HD. WILL CLOSELY MONITOR
[2018-03-10] MEDS ORDERED: EPOETIN ALFA (10,000 UNIT) 10,000 UNIT/ML VIAL SQ ONE (12:30)
--- NOTE | 2018-03-10 14:00 | NUR ---
RN NOTES 1200 PT STARTED HD. ON LEVO, WILL TITRATE ACCORDINGLY. PT ON BIPAP. NO SOB NOTED. WILL CLOSELY MONITOR 1400 PT DONE WITH HD. REMOVED 2300ML. TOLERATED PROCEDURE WELL. PT REMAINS ON LEVO, WILL TITRATE. WILL CLOSELY MONITOR.
[2018-03-10] MEDS: Magnesium 1GM/D5W 100ML PREMIX 100 ML IV SCH ×2 (14:42→15:49)
[2018-03-10] MEDS ORDERED: VANCOMYCIN 1 GM in IV D5W 250 ML IV ONE (16:00)
--- NOTE | 2018-03-10 18:34 | NUR ---
RN CLOSING NOTES PT REMAINS ON BIPAP. NO SOB NOTED. HOB ELEVATED. NO SIGNS OF PAIN NOTED. MIDLINE IN PLACE. ON LEVO AT 6MCG/MIN, TITRATED ACCORDINGLY. KEPT COMFORTABLE. ALL NEEDS ANTICIPATED AND MET. BLE ELEVATED. CALL LIGHT WITHIN REACH. WILL ENDORSE FOR CONTINUITY OF CARE.
--- NOTE | 2018-03-10 19:00 | NUR ---
RN NOTES GUERO WITH NOTED SWELLING, UNABLE TO DETERMINE IF PRESENT UPON ADMISSION. PICTURE TAKEN AND PLACED IN CHART
--- NOTE | 2018-03-10 19:30 | NUR ---
STRIKER OFF INITIAL SHIFT NOTES RECEIVED REPORT FROM NURSE ACOSTA. RECEIVED PATIENT IN BED, ASLEEP AT THIS TIME, AROUSABLE TO NAME AND LIGHT TOUCH. PATIENT IS ALERT AND ORIENTED X2, BUT IS LETHARGIC. REMAINS ON BIPAP, 15/5, RATE OF 12, WITH 25% FIO2, TOLERATING WELL, FREE FROM ANY S/S OF RESPIRATORY DISTRESS. ON TELEMETRY MONITORING, RHYTHM V PACING, HR = 65 BPM AT THIS TIME. NOTED WITH GUERO MIDLINE, DRESSING CLEAN, DRY, AND INTACT. MIDLINE FLUSHING WELL, FREE FROM ANY S/S OF INFILTRATION OR PHLEBITIS, BUT NO VENOUS RETURN NOTED. LEVOPHED RUNNING @ 6MCG/MIN. WILL MONITOR BP CLOSELY AND TITRATE NEEDED. BED IN LOWEST AND LOCKED POSITION AND CALL LIGHT WITHIN EASY REACH. WILL CONTINUE TO CLOSELY MONITOR
--- NOTE | 2018-03-10 20:48 | NUR ---
RECEIVED PT ON BIPAP ON NOTED SETTINGS. PT TOLERATING SETTINGS. WILL CONTINUE TO MONITOR. Addendum: 03/10/18 at 204 by YONATAN ADLER RT Amended: Links added.
[2018-03-10] MEDS: ATORVASTATIN 40 MG TABLET PO SCH (21:24)
[2018-03-10] MEDS: INSULIN REGULAR, HUMAN 100 UNIT/ML 3 ML VIAL SQ PRN (21:30)
[2018-03-11] VITALS (66 sets, daily range): BP systolic 91–162; BP diastolic 42–99
--- NOTE | 2018-03-11 01:59 | NUR ---
RN NOTES LEVOPHED SWITCHED TO RIGHT FOREARM #20. SITE PATENT AND INTACT, FREE FROM ANY S/S OF INFILTRATION OR PHLEBITIS. WILL CONTINUE TO CLOSELY MONITOR
--- NOTE | 2018-03-11 03:30 | NUR ---
TENNIS BALL COVERER HAND NOTES LEVOPHED PLACED ON HOLD, SBP SUSTAINING > 90. WILL CONTINUE TO CLOSELY MONITOR. RIGHT FOREARM #20 GAUGE PATENT AND INTACT, FREE FROM ANY S/S OF INFILTRATION OR PHLEBITIS.
[2018-03-11 04:46] LABS: BASOPHILS % (AUTO) 0.1 % (0.0-2.0); EOSINOPHILS % (AUTO) 0.8 % (0.0-6.0); HEMATOCRIT 28 % (33-45); HEMOGLOBIN 8.8 g/dL (11.5-14.8); LYMPHOCYTES # (AUTO) 0.6 /CMM (0.8-4.8); MEAN CORPUSCULAR HGB CONC 32 g/dl (31.0-36.0); MEAN CORPUSCULAR VOLUME 95 fL (82-100); MONOCYTES # (AUTO) 0.5 /CMM (0.1-1.30); MONOCYTES % (AUTO) 4.1 % (2.0-12.0); NEUTROPHILS # (AUTO) 10.3 /CMM (1.8-8.9); PLATELET COUNT (AUTO) 104 /CMM (150-450); RDW COEFFICIENT OF VARIATION 21.8 (11.5-15.0); RED BLOOD CELL COUNT(AUTO) 2.89 MIL/uL (4.0-5.2); WHITE BLOOD COUNT (AUTO) 11.5 K/uL (4.3-11.0)
[2018-03-11 05:06] LABS: CALCIUM, SERUM 7.3 mg/dL (8.5-10.1); CARBON DIOXIDE 22 mmol/L (21-32); CHLORIDE 101 mmol/L (98-107); CREATININE 4.3 mg/dL (0.6-1.3); GLUCOSE 189 mg/dL (74-106); MAGNESIUM 2.4 mg/dL (1.8-2.4); PHOSPHORUS 3.4 mg/dL (2.5-4.9); SODIUM SERUM 136 mmol/L (136-145); UREA NITROGEN, BLOOD 48 mg/dL (7-18)
[2018-03-11] MEDS: PIPERACILLIN /TAZOBACTAM 2.25 G in IV D5W 50 ML IV SCH ×2 (05:40→12:34)
--- NOTE | 2018-03-11 07:00 | NUR ---
TRIMMER PRESS CLIPPINGS CLOSING SHIFT NOTES PATIENT RESTING IN BED, TAKEN OFF BIPAP BY RT ROXANNE AND PLACED ON NASAL CANNULA, TOLERATING WELL. PATIENT OFF LEVOPHED DRIP SINCE 329, SBP SUSTAINING > 100. WILL ENDORSE THE PATIENT TO THE AM SHIFT NURSE FOR CONTINUITY OF CARE
--- NOTE | 2018-03-11 07:03 | NUR ---
PT. IS AWAKE AND ALERT, PLACED ON 1 LPM O2 FLOW VIA NASAL CANNULA. BIPAP ON STD BY @ BED SIDE. SPO2 100% HR 65 BPM RR 17 BPM Addendum: 03/11/18 at 0705 by ROXANNE MORTON RT Amended: Links added.
[2018-03-11] MEDS: BLOOD SUGAR DIAGNOSTIC 1 EACH STRIP IN SCH ×4 (08:49→21:32)
[2018-03-11] MEDS: glipiZIDE XL 2.5 MG TAB.OSM.24 PO SCH (08:49)
[2018-03-11] MEDS: CLOPIDOGREL BISULFATE 75 MG TABLET PO SCH (08:58)
[2018-03-11] MEDS: CALCIUM ACETATE 667 MG TABLET PO SCH ×2 (08:59→17:12)
[2018-03-11] MEDS: METOLAZONE 2.5 MG TABLET PO SCH (08:59)
[2018-03-11] MEDS: INSULIN REGULAR, HUMAN 100 UNIT/ML 3 ML VIAL SQ PRN ×3 (12:37→21:35)
--- NOTE | 2018-03-11 12:52 | NUR ---
RN NOTE 0720: Received patient awake, A/Ox4. RT placed patient on 1LPM of O2 via NC and removed Bipap, tolerated well. Noted 100% O2 sat. Will continue to monitor. With LUE swollen, midline not in use prer previous shift. Off Levophed. Vpacing 60 on the monitor. PIV intact. 0900: Placed patient on isolation precaution for MRSA blood. Made patient aware. 0930: S/E by Dr. Campbell, no any new orders at this time. 1130: S/E by Dr. Torres, "will do HD today and do BC with HD". Made MD aware re: DONALD vernon and said to remove the midline and may do LUE doppler. Per MD, may go to [facility] after HD if tolerated. 1250: No any significant changes noted at this time, awaiting HD nurse.
--- NOTE | 2018-03-11 18:18 | NUR ---
RN NOTE HD today, tolerated well. No episode of hypotension noted. Patient A/Ox4, needs attended. Kept clean, warm and dry. No any significant changes noted at this time. Will continue to monitor.
[2018-03-11] MEDS: VANCOMYCIN 500 MG in IV D5W 100 ML IV PRN (19:09)
--- NOTE | 2018-03-11 19:30 | NUR ---
[employer] INITIAL SHIFT NOTES RECEIVED PATIENT IN BED, AWAKE, ALERT AND ORIENTED X2-3, ABLE TO VERALIZE NEEDS IN [place] AND TAGALOG. BREATHING EVEN AND NONLABORED, TOLERATING ROOM AIR WELL, FREE FROM ANY S/S OF RESPIRATORY DISTRESS. ON SALESPERSON WOMEN'S DRESSES, READING VPACING, HR 60s AT THIS TIME. RIGHT FA #20 GAUGE PATENT AND INTACT, FLUSHED WITH NS, FREE FROM ANY S/S OF INFILTRATION OR PHLEBITIS. GUERO NOTED WITH WEEPING EDEMA, EXTREMITY ELEVATED. PLAN OF CARE DISCUSSED WITH THE PATIENT, WHOM VERBALIZES UNDERSTANDING. BED IN LOWEST AND LOCKED POSITION. WILL CONTINUE TO CLOSELY MONITOR
--- NOTE | 2018-03-11 20:09 | NUR ---
PT IS AWAKE AND ALERT NO SOB. PT ON ROOM AIR O2 SAT 100%.
[2018-03-11] MEDS: ATORVASTATIN 40 MG TABLET PO SCH (21:33)
[2018-03-12] VITALS (11 sets, daily range): BP systolic 91–127; BP diastolic 40–51
[2018-03-12 04:38] LABS: BASOPHILS % (AUTO) 0.1 % (0.0-2.0); EOSINOPHILS % (AUTO) 0.5 % (0.0-6.0); HEMATOCRIT 26 % (33-45); LYMPHOCYTES # (AUTO) 0.8 /CMM (0.8-4.8); LYMPHOCYTES % (AUTO) 7.2 % (20.0-44.0); MEAN CORPUSCULAR HGB CONC 31 g/dl (31.0-36.0); MEAN CORPUSCULAR VOLUME 92 fL (82-100); MONOCYTES # (AUTO) 0.9 /CMM (0.1-1.30); MONOCYTES % (AUTO) 8.4 % (2.0-12.0); NEUTROPHILS # (AUTO) 9.3 /CMM (1.8-8.9); NEUTROPHILS % (AUTO) 83.8 % (43.0-81.0); PLATELET COUNT (AUTO) 130 /CMM (150-450); RDW COEFFICIENT OF VARIATION 22.4 (11.5-15.0); RED BLOOD CELL COUNT(AUTO) 2.81 MIL/uL (4.0-5.2); WHITE BLOOD COUNT (AUTO) 11.1 K/uL (4.3-11.0)
[2018-03-12 04:46] LABS: CALCIUM, SERUM 7.4 mg/dL (8.5-10.1); CARBON DIOXIDE 26 mmol/L (21-32); CHLORIDE 102 mmol/L (98-107); CREATININE 3.7 mg/dL (0.6-1.3); GLUCOSE 135 mg/dL (74-106); MAGNESIUM 2.1 mg/dL (1.8-2.4); PHOSPHORUS 2.2 mg/dL (2.5-4.9); POTASSIUM 4.1 mmol/L (3.5-5.1); SODIUM SERUM 137 mmol/L (136-145); UREA NITROGEN, BLOOD 41 mg/dL (7-18)
--- NOTE | 2018-03-12 05:59 | NUR ---
[employer] NOTES PATIENT TRANSFERRED TO [facility], ROOM 115-1 VIA ACLS PROTOCOL. PATIENT TOLERATED TRANSFER WELL, REPORT GIVEN TO NURSE RICHARDSON FOR CONTINUITY OF CARE.
--- NOTE | 2018-03-12 06:00 | NUR ---
RN [facility] NOTE PATIENT IS TRANSFER FROM ICU, REPORT GIVEN BY TOBIAS, PATIENT PRESENTS AOX2-3, SPEECH CLEAR, ABLE TO MAKE NEEDS KNOWN ON ISOLATION FOR MRSA OF BLOOD, ON TELE V PACING, DENIES PAIN, ON 2L O2 VIA NC, NO S/SX OF RESPIRATORY OR CARDIAC DISTRESS, SKIN KEPT CLEAN AND DRY RFA #20G PATENT FLUSHING WELL, SITE CDI, DENIES HAVING ANY PAIN. SAFETY MAINTAINED AT ALL TIMES, CALL LIGHT WITHIN REACH, WILL CONTINUE TO MONITOR FOR ANY CHANGES IN CONDITION.
--- NOTE | 2018-03-12 07:00 | NUR ---
RN NOTES RECEIVED PT ON BED, A/Ox3, RESPIRATION EVEN AND UNLABORED, NO SOB NOTED, ON TELE HR IN 60'S, V PACING , R FA IV SITE G 20 CLEAN, DRY AND INTACT, R CHEST WALL HD CATH SITE INTACT, L ARM ELEVATED ON A PILLOW, WEEPING EDEMA NOTED ON L ARM . SR UP x3, CALL LIGHT WITHIN EASY REACH ,BED LOCKED AND IN LOWEST POSITION, CONTINUE TO MONITOR.
[2018-03-12] MEDS: BLOOD SUGAR DIAGNOSTIC 1 EACH STRIP IN SCH ×4 (08:25→21:10)
[2018-03-12] MEDS: glipiZIDE XL 2.5 MG TAB.OSM.24 PO SCH (08:26)
[2018-03-12] MEDS: CALCIUM ACETATE 667 MG TABLET PO SCH ×2 (08:26→16:47)
[2018-03-12] MEDS: METOLAZONE 2.5 MG TABLET PO SCH (08:26)
[2018-03-12] MEDS: CLOPIDOGREL BISULFATE 75 MG TABLET PO SCH (08:26)
[2018-03-12] MEDS: INSULIN REGULAR, HUMAN 100 UNIT/ML 3 ML VIAL SQ PRN (11:55)
--- NOTE | 2018-03-12 12:00 | NUR ---
RN NOTES SUPPORTIVE FAMILY AT HE BEDSIDE, NO DISTRESS NOTED, PT REFUSED TO EAT LUNCH, ENCOURAGED PO INTAKE ,
--- NOTE | 2018-03-12 18:25 | NUR ---
RN NOTES PT STABLE, NO SIGNIFICANT CHANGES NOTED ON THIS SHIFT, L ARM ELEVATED ON PILLOW , WILL ENDORSE TO WOOL TAMPER NURSE FOR CONTINUITY OF CARE .
--- NOTE | 2018-03-12 19:30 | NUR ---
NASRA RN INITIAL NOTE RECEIVED PATIENT AWAKE A/OX3, ABLE TO MAKE NEEDS KNOWN, DENIES PAIN OR DISCOMFORT. DENIES RESPIRATORY DISTRESS, ON 2LPMO2 VIA NC. SKIN WARM AND DRY TO TOUCH. ON TELE MONITOR VPACING. ISOLATION PRECAUTIONS OBSERVED. HOB ELEVATED. SIDE RAILS UP AND LOCKED. BED KEPT AT LOWEST POSITION. TURNED AND REPOSITIONED. CALL LIGHT KEPT WITHIN EASY REACH. WILL CONTINUE TO MONITOR.
[2018-03-12] MEDS: ATORVASTATIN 40 MG TABLET PO SCH (21:11)
[2018-03-13] VITALS: BP 104/49
--- NOTE | 2018-03-13 | NUR ---
NASRA RN NOTE CONTINUITY OF CARE ENDORSED TO LORNA.
[2018-03-13 04:00] VITALS: BP 105/48
--- NOTE | 2018-03-13 07:15 | NUR ---
NASRA INITIAL RN NOTES RECEIVED REPORT FROM PM NURSE. PATIENT IN BED, SEMI-CONNER'S POSITION. O2 NC 2L SAT AT 100%. NOT IN RESP DISTRESS. PT'S LUNG SOUNDS CLEAR BILATERALLY. SR V PACING 70 HR. PATIENT IS ANURIC. REPORTED LBM LAST NIGHT. ACTIVE BS ALL QUADS. NO PAIN REPORTED. LEFT ARM EDEMA 2+ PITTING. a/ CAREGIVER AT BS. Addendum: 03/13/18 at 09 by SAMEERA QUIROZ RN ADDENDUM A/O X3. HD CATH RCW. NO S/SX INFECTION. IV SITE RFA #20 NO S/SX INFECTION AND PATENT. SR PACING 70. WILL CONT TO MONITOR.
--- NOTE | 2018-03-13 07:40 | NUR ---
NASRA RN NOTES BS 45MG/DL. PER SLIDING SCALE GIVEN D50 VIA RFA IV SITE. RECHECKED BS AFTER 20 MIN. NOW 156 MG/DL.
[2018-03-13] MEDS: BLOOD SUGAR DIAGNOSTIC 1 EACH STRIP IN SCH ×4 (07:41→21:13)
[2018-03-13] MEDS: DEXTROSE 50%-WATER 50 ML DISP.SYRIN IV PRN (07:43)
[2018-03-13 08:00] VITALS: BP 92/39
[2018-03-13 08:02] LABS: CALCIUM, SERUM 7.3 mg/dL (8.5-10.1); CARBON DIOXIDE 24 mmol/L (21-32); CHLORIDE 102 mmol/L (98-107); CREATININE 4.2 mg/dL (0.6-1.3); POTASSIUM 4.2 mmol/L (3.5-5.1); SODIUM SERUM 136 mmol/L (136-145); UREA NITROGEN, BLOOD 49 mg/dL (7-18)
[2018-03-13] MEDS: METOLAZONE 2.5 MG TABLET PO SCH (08:17)
[2018-03-13] MEDS: glipiZIDE XL 2.5 MG TAB.OSM.24 PO SCH (08:17)
[2018-03-13] MEDS: CLOPIDOGREL BISULFATE 75 MG TABLET PO SCH (08:18)
[2018-03-13] MEDS: CALCIUM ACETATE 667 MG TABLET PO SCH ×2 (08:18→16:27)
[2018-03-13 08:25] LABS: GLUCOSE 48 mg/dL (74-106)
--- NOTE | 2018-03-13 09:15 | NUR ---
M/S RN NOTES PT STARTED HD. BP 94/45 HR 68 ONGOING MONITORING
--- NOTE | 2018-03-13 09:15 | NUR ---
NASRA RN NOTES DR MACHADO ROUNDING WITH PATIENT.
--- NOTE | 2018-03-13 09:34 | NUR ---
NASRA RN NOTES DR MILLER NOTIFIED OF PT LOW BS AND DEC BP AND CRITICAL VALUE LAB (GLUCOSE). NO NEW ORDERS AT THIS TIME. WILL CONT TO MONITOR
[2018-03-13] MEDS: ALBUMIN 25% 25 GM in PREMIX 1 EA IV PRN (10:14)
--- NOTE | 2018-03-13 11:07 | NUR ---
WOUND CARE CONSULT WOUND CARE RECEIVED CONSULT FOR NEW SACRAL OPENING. WOUND CARE WILL DEFER CONSULT AND TREATMENT PLAN TO SURGICAL TEAM WHO ARE CURRENTLY FOLLOWING. PATIENT NOTED TO HAVE SACRAL DTI POA. ALL PRESSURE ULCER PREVENTION MEASURES CONTINUE TO BE IN PLACE.
[2018-03-13] MEDS ORDERED: EPOETIN ALFA (10,000 UNIT) 10,000 UNIT/ML VIAL IV ONE (12:00)
--- NOTE | 2018-03-13 12:05 | NUR ---
M/S RN NOTES HD ENDED. BP 102/50 HR 77. REMOVED 2L. TOLERATED TX. VANCO HELD D/T TROUGH 23. PHARMACY MADE AWARE.WILL CONT TO MONITOR
[2018-03-13 16:00] VITALS: BP 106/65
[2018-03-13] MEDS: CADEXOMER IODINE 40 GM TUBE TP SCH (16:34)
--- NOTE | 2018-03-13 19:15 | NUR ---
M/S RN ENDING NOTES PT ENDORSED TO PM NURSE TO CONTINUE CARE. PT STABLE AT THIS TIME. PT NOT IN DISTRESS OR PAIN. PT DID NOT HAVE AN EPISODE OF LOW BS SINCE THIS MORNING. ALL NEEDS MET. SAFETY MAINTAINED. CALL LIGHT IN REACH.
[2018-03-13 20:00] VITALS: BP 114/47
[2018-03-13] MEDS: INSULIN REGULAR, HUMAN 100 UNIT/ML 3 ML VIAL SQ PRN (21:14)
[2018-03-13] MEDS: ATORVASTATIN 40 MG TABLET PO SCH (21:15)
[2018-03-14 04:00] VITALS: BP 114/47
[2018-03-14] MEDS: ACETAMINOPHEN 325 MG TABLET PO PRN ×2 (05:30→17:51)
[2018-03-14 06:36] LABS: CALCIUM, SERUM 7.6 mg/dL (8.5-10.1); CARBON DIOXIDE 27 mmol/L (21-32); CHLORIDE 100 mmol/L (98-107); CREATININE 3.4 mg/dL (0.6-1.3); GLUCOSE 121 mg/dL (74-106); SODIUM SERUM 136 mmol/L (136-145); UREA NITROGEN, BLOOD 32 mg/dL (7-18)
--- NOTE | 2018-03-14 06:36 | NUR ---
MS RN NOTES, PATIENT IN BED AWAKE, ALERT AND ORIENTED ABLE TO VERBALIZED NEEDS AND CONCERNS, O2 NC 2L SAT AT 100%, NO SOB OR RESP DISTRESS NOTED AT THIS TIME, NO PAIN REPORTED. LEFT ARM EDEMA 2+ PITTING, KEPT ARM ELEVATED, RFA 20G AV ACCESS PATENT AND INTACT, NO CHANGE OF CONDITION DURING THE NIGHT, CAREGIVER AT BEDSIDE, WILL ENDORSE CONTINUITY IF CARE TO ONCOMING NURSE.
--- NOTE | 2018-03-14 07:20 | NUR ---
STAVE CUTTER OPENING NOTE RECEIVED PATIENT RESTING IN BED, NO RESPIRATORY DISTRESS NOTED. ABLE TO MAKE NEEDS KNOWN. FAMILY MEMBER AT BEDSIDE. IV SITE ON RIGHT FOREARM INTACT SALINE LOCK. SEQUENTIAL COMPRESSION DEVICES ON. HEAD OF BED ELEVATED, BED LOW AND LOCKED, CALL LIGHT WITHIN REACH, WILL CONTINUE TO MONITOR.
[2018-03-14 08:00] VITALS: BP 103/43
[2018-03-14] MEDS: CLOPIDOGREL BISULFATE 75 MG TABLET PO SCH (09:43)
[2018-03-14] MEDS: CALCIUM ACETATE 667 MG TABLET PO SCH ×2 (09:44→17:49)
[2018-03-14] MEDS: BLOOD SUGAR DIAGNOSTIC 1 EACH STRIP IN SCH ×4 (09:45→21:27)
[2018-03-14] MEDS: glipiZIDE XL 2.5 MG TAB.OSM.24 PO SCH (09:48)
[2018-03-14] MEDS: CADEXOMER IODINE 40 GM TUBE TP SCH (09:50)
[2018-03-14] MEDS ORDERED: MUPIROCIN OINT 2% 22 GM TUBE SCH (12:00)
[2018-03-14] MEDS: INSULIN REGULAR, HUMAN 100 UNIT/ML 3 ML VIAL SQ PRN ×2 (12:57→21:43)
[2018-03-14] MEDS: METOLAZONE 2.5 MG TABLET PO SCH (13:00)
[2018-03-14] MEDS ORDERED: LIDOCAINE 1%-EPI 1:100,000 20 ML VIAL TP STA (15:03)
[2018-03-14 16:00] VITALS: BP 124/59
--- NOTE | 2018-03-14 18:24 | NUR ---
RISK COMPLIANCE ANALYST NOTE PATIENT IV SITE LEAKING AND UNUSABLE. ICU NURSE ATTEMPTED TO INSERT A PERIPHERAL IV BUT PATIENT'S ARMS SWOLLEN AND UNABLE TO GAIN ACCESS AT THIS TIME. NOTIFIED, RECEIVED AN ORDER FOR MID LINE.
--- NOTE | 2018-03-14 18:33 | NUR ---
SENSORY SCIENTIST CLOSING NOTE PATIENT RESTING IN BED IN STABLE CONDITION WITH FAMILY AT BEDSIDE. AWAITING FOR MIDLINE INSERTION AT THIS TIME. OXYGEN ON VIA NASAL CANNULA AT 2LPM. NO RESPIRATORY DISTRESS NOTED. ABLE TO MAKE NEEDS KNOWN. SEQUENTIAL COMPRESSION DEVICES ON. HEAD OF BED ELEVATED, BED LOW AND LOCKED, CALL LIGHT WITHIN REACH, WILL ENDORSE TO ONCOMING SHIFT.
[2018-03-14 20:00] VITALS: BP_SYST 103; BP_SYST 98; BP_DIAS 46; BP_DIAS 49
[2018-03-14] MEDS: ATORVASTATIN 40 MG TABLET PO SCH (21:27)
[2018-03-15] VITALS (8 sets, daily range): BP systolic 98–117; BP diastolic 28–55
--- NOTE | 2018-03-15 07:30 | NUR ---
RN NOTE PATIENT RESTED WELL AT NIGHT, FAMILY IS BY BEDSIDE, NO DISTRESS NOTED, TURNED AND REPOSITION PATIENT EVERY 2 HOURS, WOUND CARE PROVIDED, PATIENT IS STABLE, ENDORSED TO AM SHIFT TO CONTINUE CARE
--- NOTE | 2018-03-15 08:00 | NUR ---
RN NOTE RECEIVED PATIENT IN BED, ALERT AND ORIENTEDx3,ABLE TO MAKE NEEDS KNOWN, ON NASAL CANNULA WITH 2 LPM OXYGEN,SATURATING ON 1005, NO RESPIRATORY DISTRESS NOTED. IV SITE ON RIGHT FOREARM INTACT SALINE LOCK. SEQUENTIAL COMPRESSION DEVICES ON. FAMILY MEMBER AT BEDSIDE, HEAD OF BED ELEVATED, BED LOW AND LOCKED, CALL LIGHT WITHIN REACH, WILL CONTINUE TO MONITOR.
[2018-03-15 08:03] LABS: CALCIUM, SERUM 7.6 mg/dL (8.5-10.1); CARBON DIOXIDE 25 mmol/L (21-32); CHLORIDE 99 mmol/L (98-107); CREATININE 3.9 mg/dL (0.6-1.3); GLUCOSE 76 mg/dL (74-106); POTASSIUM 4.3 mmol/L (3.5-5.1); SODIUM SERUM 136 mmol/L (136-145); UREA NITROGEN, BLOOD 33 mg/dL (7-18)
[2018-03-15] MEDS: CADEXOMER IODINE 40 GM TUBE TP SCH (09:00)
[2018-03-15] MEDS: BLOOD SUGAR DIAGNOSTIC 1 EACH STRIP IN SCH ×4 (09:44→21:46)
[2018-03-15] MEDS: CALCIUM ACETATE 667 MG TABLET PO SCH ×2 (09:45→17:31)
[2018-03-15] MEDS: glipiZIDE XL 2.5 MG TAB.OSM.24 PO SCH (09:45)
[2018-03-15] MEDS: CLOPIDOGREL BISULFATE 75 MG TABLET PO SCH (09:45)
[2018-03-15] MEDS: METOLAZONE 2.5 MG TABLET PO SCH (09:45)
--- NOTE | 2018-03-15 11:20 | NUR ---
RN NOTES RECEIVED CALL FROM OSITO WHITE NP, WITH ORDERS TO OBTAIND CONSENT AND PREPARE AT BEDSIDE SUPPLIES FOR QUINTOIN CATHETER INSERTION. CONSENT OBTAINED AND SIGNED FROM Fabiola CANCINO (FRIEND WITH A POWER OF THREADER). WITNESSED BY RN (MYSELF) AND MATTHEW CORBIN. SUPPLIES MADE READY AT BEDSIDE. WAITING FOR MD AND JACKSCREW WORKER TO PERFORM THE PROCEDURE
[2018-03-15] MEDS ORDERED: LIDOCAINE 1% INJ 50 ML MDV IJ ONE (11:30)
[2018-03-15] MEDS ORDERED: HEPARIN SODIUM, PORCINE 1000 UNIT/1 ML VIAL IV ONE ×2 (11:30→15:30)
[2018-03-15] MEDS: INSULIN REGULAR, HUMAN 100 UNIT/ML 3 ML VIAL SQ PRN ×2 (12:17→21:48)
[2018-03-15] MEDS: ACETAMINOPHEN 325 MG TABLET PO PRN (15:29)
[2018-03-15] MEDS ORDERED: HEPARIN SODIUM, PORCINE 5000 UNITS/1 ML VIAL IVF ONE (16:00)
--- NOTE | 2018-03-15 16:00 | NUR ---
RN NOTES PATIENT GIVEN TYLENOL 650 MG REQUESTED DUE TO COMPLAINS OF PAIN. WILL CONTINUE TO MONITOR
--- NOTE | 2018-03-15 16:48 | NUR ---
RN NOTES PATIENT S/P GIULIA CATHETER INSERTION BY DR LEYVA. PATIENT WAS ABLE TO TOLERATE THE PROCEDURE WELL. NOT ON ANY FORM OF DISTRESS NOTED AT THIS TIME. DR LEYVA ORDERED STAT CHEST X-RAY. ORDERE NOTED AND CARRIED OUT. WILL CONTINUE TO MONITOR.
--- NOTE | 2018-03-15 19:30 | NUR ---
RN NOTES PATIENT ENDORSED FOR CONTINUITY OF CARE, NO ACUTE CHANGES WITHIN THE SHIFT, ON 2LPM OF OXYGEN VIA NASAL CANNULA, SATURATING ON 100%, NO COMPLAINTS OF PAIN, S/P GIULIA CATHETER INSERTION, CALL LIGHT WITHIN REACH, MAINTAINED SAFETY.
--- NOTE | 2018-03-15 19:40 | NUR ---
RN OPENING NOTES: RECEIVED PATIENT ON BED AWAKE AND ALERT NOT IN APPARENT DISTRESS ON O2 VIA NC AT 4LPM. OFF TELE. IV ACCESS INTACT. NOTED WITH NEW GIULIA CATH ON LEFT NECK AREA DRESSING INTACT WITH MINIMAL SANGUINOUS DRAINAGE. SAFETY MEASURES ENSURED. WITH COMPLAINTS OF GENERALIZED BODY ACHE. OFFERED TYLENOL BUT PATIENT SAYS "ILL BE FINE." SKIN CARE RENDERED. SAFETY MEASURES ENSURED AT ALL TIMES. WITH FAMILY AT BEDSIDE. CONTINUOUSLY MONITORED.
[2018-03-15] MEDS: ATORVASTATIN 40 MG TABLET PO SCH (21:46)
[2018-03-15] MEDS: IPRATROPIUM NEB FS 0.5 MG/2.5 ML AMPUL.NEB NEB PRN (23:53)
[2018-03-15] MEDS: ALBUTEROL FS 2.5 MG/0.5 ML VIAL.NEB NEB PRN (23:53)
[2018-03-16] VITALS: BP 120/63
[2018-03-16 04:00] VITALS: BP 117/45
[2018-03-16 06:35] LABS: CALCIUM, SERUM 7.5 mg/dL (8.5-10.1); CARBON DIOXIDE 27 mmol/L (21-32); CHLORIDE 100 mmol/L (98-107); CREATININE 4.6 mg/dL (0.6-1.3); GLUCOSE 102 mg/dL (74-106); POTASSIUM 4.7 mmol/L (3.5-5.1); SODIUM SERUM 135 mmol/L (136-145); UREA NITROGEN, BLOOD 46 mg/dL (7-18)
--- NOTE | 2018-03-16 06:56 | NUR ---
RN CLOSING NOTES: PATIENT REMAINED NOT IN APPARENT DISTRESS. ON O2 VIA NC AT 2LPM, TOLERATING WELL. IV ACCESS AND HD ACCESS INTACT. NO COMPLAINTS OF FURTHER PAIN. SKIN CARE AND WOUND TREATMENT RENDERED. AM LABS DRAWN, RESULTS IN. SAFETY MEASURES ENSURED. TO ENDORSE TO AM SHIFT RN.
[2018-03-16] MEDS: BLOOD SUGAR DIAGNOSTIC 1 EACH STRIP IN SCH ×4 (07:25→21:03)
--- NOTE | 2018-03-16 07:43 | NUR ---
MS RN OPENING NOTES RECEIVED PT FROM NIGHTSHIFT NURSE IN STABLE CONDITION. PT IS A/O X3. NO SOB OR ACUTE SIGNS OF DISTRESS NOTED. BREATHING IS EVEN AND UNLABORED/ PT ON 2L VIA NC AND SATING WELL. RIGHT UPPER ARM MIDLINE NOTED TO BE PATENT AND INTACT. NO REDNESS OR SIGNS OF INFILTRATION NOTED. GIULIA CATH NOTED FOR HD ACCESS. CENTRAL DRESSINGS NOTED TO BE CLEAN, DRY, AND INTACT. BED IN LOW LOCKED POSITION, SIDE RAILS UP X2, CALL LIGHT WITHIN REACH, CONTACT ISOLATION PRECAUTIONS MAINTAINED. PT'S CAREGIVER AT BEDSIDE. WILL CONTINUE TO MONITOR
[2018-03-16 08:00] VITALS: BP_SYST 112; BP_DIAS 51; BP_DIAS 73
[2018-03-16] MEDS: CLOPIDOGREL BISULFATE 75 MG TABLET PO SCH (08:54)
[2018-03-16] MEDS: glipiZIDE XL 2.5 MG TAB.OSM.24 PO SCH (08:54)
[2018-03-16] MEDS: CALCIUM ACETATE 667 MG TABLET PO SCH ×2 (08:54→16:52)
[2018-03-16] MEDS: CADEXOMER IODINE 40 GM TUBE TP SCH (08:57)
[2018-03-16] MEDS: ACETAMINOPHEN 325 MG TABLET PO PRN (09:40)
[2018-03-16 12:00] VITALS: BP 139/41
[2018-03-16] MEDS: VANCOMYCIN 500 MG in IV D5W 100 ML IV PRN (13:28)
--- NOTE | 2018-03-16 15:06 | NUR ---
MS RN NOTES: S/P HD 1000 ML REMOVED AFTER HD. VITALS STABLE. RAJI FROM PHARMACY GAVE VERBAL APPROVAL OF VANCO ADMINISTRATION GIVEN HER VANCO TROUGH OF 17 ON (03/15). NO NEW TROUGH LEVEL NEEDED PER PHARMACIST. MEDICATION ADMINISTERED ORDERED
[2018-03-16 16:00] VITALS: BP 120/45
[2018-03-16] MEDS: INSULIN REGULAR, HUMAN 100 UNIT/ML 3 ML VIAL SQ PRN (16:59)
--- NOTE | 2018-03-16 18:15 | NUR ---
MS RN CLOSING NOTES PT REMAINS STABLE. ALL NEEDS WERE MET DURING SHIFT AND ORDERS CARRIED OUT ACCORDINGLY. ALL DUE MEDS GIVEN. VITALS REMAIN STABLE POST HD. MIDLINE REMAIN PATENT AND INTACT. WOUND AND SKIN CARE RENDERED ORDERED. DRESSINGS REMAIN CLEAN, DRY, AND INTACT. PT REPOSITIONED AND TURNED PER HOSPITAL PROTOCOL. FAMILY AT BEDSIDE. SAFETY MEASURES REMAIN IN PLACE. WILL ENDORSE TO NIGHTSHIFT NURSE FOR CAILIN
--- NOTE | 2018-03-16 20:59 | NUR ---
MS RN INITIAL NOTES RECEIVED PT FROM AM SHIFT NURSE IN STABLE CONDITION. PT IS A/O X3. NO SOB OR ACUTE SIGNS OF DISTRESS NOTED. BREATHING IS EVEN AND UNLABORED/ PT ON 2L VIA NC AND SATING WELL. RIGHT UPPER ARM MIDLINE NOTED TO BE PATENT AND INTACT. NO REDNESS OR SIGNS OF INFILTRATION NOTED. GIULIA CATH NOTED FOR HD ACCESS. CENTRAL DRESSINGS NOTED TO BE CLEAN, DRY, AND INTACT. BED IN LOW LOCKED POSITION, SIDE RAILS UP X2, CALL LIGHT WITHIN REACH, CONTACT ISOLATION PRECAUTIONS MAINTAINED. PT'S CAREGIVER AT BEDSIDE. WILL CONTINUE TO MONITOR
[2018-03-16] MEDS: ATORVASTATIN 40 MG TABLET PO SCH (21:02)
--- NOTE | 2018-03-16 23:30 | NUR ---
TELE/RN ASSUMED CARE FOR CONTINUITY OF CARE. PATIENT IS SLEEPING AT THIS TIME, AROUSABLE, APPEAR COMFORTABLE, NO SIGNS OF DISTRESS NOTED, CALL LIGHT IN REACH. WILL MONITOR.
[2018-03-17 04:52] VITALS: BP 107/45
[2018-03-17 06:38] LABS: CALCIUM, SERUM 7.8 mg/dL (8.5-10.1); CARBON DIOXIDE 26 mmol/L (21-32); CHLORIDE 99 mmol/L (98-107); CREATININE 3.6 mg/dL (0.6-1.3); GLUCOSE 64 mg/dL (74-106); SODIUM SERUM 135 mmol/L (136-145); UREA NITROGEN, BLOOD 32 mg/dL (7-18)
--- NOTE | 2018-03-17 07:15 | NUR ---
MS/RN INITIAL NOTES RECEIVED PT IN BED, A/OX4. ON 2L O2 VIA NC, TOLERATING WELL, NO SOB NOTED. WITH INTACT KEVON MIDLINE AND R JUGULAR GIULIA CATH. NO C/O PAIN AT THIS TIME. HOB ELEVATED. SAFETY MEASURES IN PLACED. CALL LIGHT WITHIN REACH. WILL CONT TO MONITOR
--- NOTE | 2018-03-17 07:30 | NUR ---
RN NOTES BS=57, WILL RECHECK
--- NOTE | 2018-03-17 07:45 | NUR ---
RN NOTES REPEAT BS=65, NO SIGNS OF HYPOGLYCEMIA NOTED. BREAKFAST AT BEDSIDE. ORANGE JUICE OFFERED. ENCOURAGE INCREASE PO INTAKE TOLERATED. WILL CONT TO MONITOR
[2018-03-17] MEDS: BLOOD SUGAR DIAGNOSTIC 1 EACH STRIP IN SCH ×4 (07:52→22:01)
[2018-03-17 08:00] VITALS: BP 94/70
[2018-03-17] MEDS: glipiZIDE XL 2.5 MG TAB.OSM.24 PO SCH (08:39)
[2018-03-17] MEDS: CLOPIDOGREL BISULFATE 75 MG TABLET PO SCH (08:39)
[2018-03-17] MEDS: CALCIUM ACETATE 667 MG TABLET PO SCH ×2 (08:39→16:38)
[2018-03-17] MEDS: CADEXOMER IODINE 40 GM TUBE TP SCH (08:43)
[2018-03-17] MEDS: ALBUTEROL FS 2.5 MG/0.5 ML VIAL.NEB NEB PRN ×2 (11:00→22:50)
[2018-03-17] MEDS: IPRATROPIUM NEB FS 0.5 MG/2.5 ML AMPUL.NEB NEB PRN ×2 (11:00→22:50)
[2018-03-17] MEDS: INSULIN REGULAR, HUMAN 100 UNIT/ML 3 ML VIAL SQ PRN ×3 (13:32→22:08)
--- NOTE | 2018-03-17 18:57 | NUR ---
MS/RN NOTES PT IN STABLE CONDITION. NO ACUTE DISTRESS NOTED THROUGHOUT SHIFT. SAFETY MEASURES PRECAUTION OBSERVED AT ALL TIMES. ALL NEEDS ANTICIPATED.
--- NOTE | 2018-03-17 19:50 | NUR ---
NASRA RN NOTES RECEIVED BEDSIDE REPORT FROM AM NURSE. PT IN BED, A/OX4. ON 2L O2 VIA NC, TOLERATING WELL, NO SOB NOTED AT THIS TIME. WITH INTACT KEVON MIDLINE AND R JUGULAR GIULIA CATH. NO C/O PAIN AT THIS TIME. HOB ELEVATED. SAFETY MEASURES IN PLACED. CALL LIGHT WITHIN REACH. WILL CONT TO MONITOR. Addendum: 03/17/18 at 2224 by SHARAL TRIPP RN PATIENT IS A/OX2-3 WITH CONFUSION
[2018-03-17 20:00] VITALS: BP 103/42
[2018-03-17] MEDS: ATORVASTATIN 40 MG TABLET PO SCH (22:00)
[2018-03-17] MEDS: MUPIROCIN OINT 2% 22 GM TUBE SCH (23:00)
[2018-03-18 04:00] VITALS: BP 106/42
[2018-03-18] MEDS: ALBUTEROL FS 2.5 MG/0.5 ML VIAL.NEB NEB PRN ×2 (05:38→10:32)
[2018-03-18] MEDS: IPRATROPIUM NEB FS 0.5 MG/2.5 ML AMPUL.NEB NEB PRN ×2 (05:38→10:31)
--- NOTE | 2018-03-18 06:35 | NUR ---
RN CLOSING NOTES PT IS IN BED RESTING COMFORTABLY, IN STABLE CONDITION. NO ACUTE DISTRESS NOTED THROUGHOUT SHIFT. RIGHT UPPER ARM MIDLINE IS PATIENT, INTACT. RIGHT IJ HD CATHETER IS INTACT. SAFETY MEASURES ARE IMPLEMENTED AT ALL TIMES. ALL NEEDS ANTICIPATED.
[2018-03-18 06:42] LABS: CALCIUM, SERUM 7.8 mg/dL (8.5-10.1); CARBON DIOXIDE 26 mmol/L (21-32); CHLORIDE 97 mmol/L (98-107); CREATININE 3.9 mg/dL (0.6-1.3); GLUCOSE 96 mg/dL (74-106); POTASSIUM 4.5 mmol/L (3.5-5.1); SODIUM SERUM 133 mmol/L (136-145); UREA NITROGEN, BLOOD 35 mg/dL (7-18)
[2018-03-18 08:00] VITALS: BP 114/50
--- NOTE | 2018-03-18 08:00 | NUR ---
RN NOTES RECEIVED PATIENT IN THE BED A/O X2/3 ON O2-2L NC, PATIENT HAS NO ACUTE RESPIRATORY DISTRESS, BUT EACH MOVEMENT PATIENT EASILY GETTING SOB. BS-117 MG/DL NO COVERAGE GIVEN, SCHEDULED MEDICATION ADMINISTERED, V/S STABLE. PATIENT HAS RIGHT IJ AREA TEMPORARY HD CATH INTACT. PATIENT MAXIMUM ASSIST, ASSIST TURN AND REPOSTION Q 2 HR. PATIENT HAS SACRAL WOUND. IV ON RIGHT UPPER ARM MIDLINE INTACT. PATIENT ON DIAPER. PRIVATE REHABILITATION CONSULTANT NEXT TO THE BED. CALL LIGHT WITHIN TO REACH. SAFETY PRECAUTION MAINTAINED ALL THE TIME.
[2018-03-18] MEDS: CALCIUM ACETATE 667 MG TABLET PO SCH ×2 (09:05→16:55)
[2018-03-18] MEDS: glipiZIDE XL 2.5 MG TAB.OSM.24 PO SCH (09:05)
[2018-03-18] MEDS: CLOPIDOGREL BISULFATE 75 MG TABLET PO SCH (09:06)
[2018-03-18] MEDS: MUPIROCIN OINT 2% 22 GM TUBE SCH ×2 (09:06→21:28)
--- NOTE | 2018-03-18 10:00 | NUR ---
RN NOTES PATIENT GETTING HD AT THIS TIME, CONTINUED MONITORING.
[2018-03-18] MEDS: BLOOD SUGAR DIAGNOSTIC 1 EACH STRIP IN SCH ×4 (10:11→21:27)
[2018-03-18] MEDS: CADEXOMER IODINE 40 GM TUBE TP SCH (10:12)
--- NOTE | 2018-03-18 12:00 | NUR ---
MS RN NOTE: RECEIVED REPORT FROM MS MATTHEW LAU FOR CONTINUITY OF CARE. PATIENT WAS DONE WITH HER HEMODIALYSIS AND 2L OF FLUID WAS TAKEN OUT. PATIENT ON STABLE CONDITION. NO SHORTNESS OF BREATH NOTED. LUNCH TRAY WAS SERVED. 2 FRIENDS PRESENT AT THE BEDSIDE.
[2018-03-18] MEDS: CEFTRIAXONE 1 G in IV D5W 50 ML IV SCH (12:38)
[2018-03-18] MEDS ORDERED: LIDOCAINE 1%-EPI 1:100,000 20 ML VIAL TP ONE (15:30)
[2018-03-18] MEDS ORDERED: SILVER NITRATE APPLICATOR 1 EA BOX TP SCH (15:30)
[2018-03-18 16:00] VITALS: BP 105/39
--- NOTE | 2018-03-18 16:25 | NUR ---
MS RN NOTE: CHILO CANCINO, FRIEND WAS MADE AWARE ABOUT THE ORDER FOR SACRAL WOUND DEBRIDEMENT AND SHE AGREED AND VERIFIED WITH HER THAT SHE IS CONSENTING THE PROCEDURE. INFORMED CONSENT WAS SIGNED. FILED ON PATIENT'S CHART.
[2018-03-18] MEDS: INSULIN REGULAR, HUMAN 100 UNIT/ML 3 ML VIAL SQ PRN ×2 (17:43→21:38)
--- NOTE | 2018-03-18 19:30 | NUR ---
MS RN NOTE: PATIENT ON STABLE CONDITION. NO CHANGE OF CONDITION NOTED. VANCOMYCIN WAS GIVEN TONIGHT PER MD ORDER POST HD. REPORT GIVEN TO PM SHIFT NURSE FOR CONTINUITY OF CARE.
[2018-03-18] MEDS: VANCOMYCIN 500 MG in IV D5W 100 ML IV PRN (19:32)
[2018-03-18 20:00] VITALS: BP 134/61
--- NOTE | 2018-03-18 20:00 | NUR ---
NASRA RN NOTES RECEIVED BEDSIDE REPORT FROM AM NURSE. PT IN BED, A/OX2-3. ON 2L O2 VIA NC, TOLERATING WELL, NO SOB NOTED AT THIS TIME. WITH INTACT KEVON MIDLINE AND R JUGULAR GIULIA CATH.PATIENT HAD HD TODAY AM SHIFT AND 2L FLUIDS WERE OUT.PATIENT VERBALIZED THAT SHE HAS LESS SOB AFTER HD. NO C/O PAIN AT THIS TIME. HOB ELEVATED ALL THE TIME FOR COMFORT AND EASY BREATHING. SAFETY MEASURES IN PLACED. CALL LIGHT WITHIN REACH. WILL CONT TO MONITOR.
[2018-03-18] MEDS: ATORVASTATIN 40 MG TABLET PO SCH (21:27)
[2018-03-19] MEDS: ACETAMINOPHEN 325 MG TABLET PO PRN ×2 (02:51→15:30)
[2018-03-19 04:00] VITALS: BP 118/59
--- NOTE | 2018-03-19 06:05 | NUR ---
RN CLOSING NOTES PT IS IN BED RESTING COMFORTABLY, IN STABLE CONDITION. NO ACUTE DISTRESS NOTED THROUGHOUT SHIFT. RIGHT UPPER ARM MIDLINE IS PATIENT, INTACT.SHELL MACHINE OPERATOR LUCIA THOMSON AT THE BEDSIDE AND NEW ORDER IN PLACE TO REMOVE THE CURRENT MIDLINE AND START NEW ALTERNATIVE IV LINE WITH NEW MEDICATION ORDERED. RIGHT IJ HD CATHETER IS INTACT. SAFETY MEASURES ARE IMPLEMENTED AT ALL TIMES. ALL NEEDS ANTICIPATED.
--- NOTE | 2018-03-19 07:15 | NUR ---
ROD PLACER OPENING NOTE PATIENT RESTING IN BED IN STABLE CONDITION, ON OXYGEN VIA NASAL CANNULA AT 2LPM. NO RESPIRATORY DISTRESS NOTED. MIDLINE ON RIGHT UPPER ARM INTACT. GIULIA CATHETER ON RIJ INTACT. ABLE TO MAKE NEEDS KNOWN. HEAD OF BED ELEVATED, BED LOW AND LOCKED, CALL LIGHT WITHIN REACH, WILL CONTINUE TO MONITOR.
[2018-03-19 08:00] VITALS: BP 112/51
[2018-03-19] MEDS: glipiZIDE XL 2.5 MG TAB.OSM.24 PO SCH (09:04)
[2018-03-19] MEDS: CALCIUM ACETATE 667 MG TABLET PO SCH ×2 (09:05→18:02)
[2018-03-19] MEDS: BLOOD SUGAR DIAGNOSTIC 1 EACH STRIP IN SCH ×4 (09:05→21:25)
[2018-03-19] MEDS: CLOPIDOGREL BISULFATE 75 MG TABLET PO SCH (09:05)
[2018-03-19] MEDS: MUPIROCIN OINT 2% 22 GM TUBE SCH ×2 (09:06→21:18)
[2018-03-19] MEDS: DOXYCYCLINE 100 MG in IV D5W 100 ML IV SCH ×2 (09:06→21:26)
[2018-03-19] MEDS: CADEXOMER IODINE 40 GM TUBE TP SCH (09:07)
[2018-03-19] MEDS: IPRATROPIUM NEB FS 0.5 MG/2.5 ML AMPUL.NEB NEB PRN ×2 (10:44→22:45)
[2018-03-19] MEDS: ALBUTEROL FS 2.5 MG/0.5 ML VIAL.NEB NEB PRN ×2 (10:45→22:45)
[2018-03-19 11:10] LABS: ABG BASE EXCESS -3.9 mmol/L; ABG OXYGEN SATURATION 98.7 % (92.0-98.5); ABG PCO2 32.6 mmHg (35.0-45.0); ABG PH 7.407 (7.350-7.450); ABG PO2 302.2 mmHg (75.0-100.0); COHb 0.3 % (0.5-1.5); MetHb 0.5 % (0.0-1.5); O2Hb 97.9 % (94.0-97.0); SITE, ABG Right Radial; VENT MODE, BG 6 LMP O2 FLOW VIA HHN
[2018-03-19] MEDS: CEFTRIAXONE 1 G in IV D5W 50 ML IV SCH (13:33)
[2018-03-19 16:00] VITALS: BP 114/48
--- NOTE | 2018-03-19 19:20 | NUR ---
MS RN NOTES RECEIVED PT ON BED, A/O X4 WITH DAUGHTER AT BEDSIDE. ON NASAL CANNULA 2LPM SATURATING 100%. NO RESPIRATORY NOTED. IV ACCESS ON KEVON MIDLINE, PATENT AND INTACT. LA CHEST WALL CHEST WALL PACEMAKER. IV ACCESS ON RIJ GIULIA CATH NO BLEEDING NOTED. HEAD OF BED ELEVATED. SIDE RAILS UP. CALL LIGHT WITHIN REACH. BED ALARM ON. WILL CONT TO MONITOR PT CLOSELY.
--- NOTE | 2018-03-19 19:31 | NUR ---
TINNER HELPER CLOSING NOTE PATIENT RESTING IN BED IN STABLE CONDITION, FAMILY AT BEDSIDE. NO RESPIRATORY DISTRESS NOTED, ON OXYGEN VIA NASAL CANNULA. MIDLINE ON RIGHT UPPER ARM INTACT. SEQUENTIAL COMPRESSION DEVICES ON. HEAD OF BED ELEVATED, BED LOW AND LOCKED, CALL LIGHT WITHIN REACH, WILL ENDORSE TO ONCOMING NURSE FOR CONTINUITY OF CARE.
[2018-03-19] MEDS: RIFAMPIN 600 MG in IV NS 0.9% 100 ML IV SCH (19:44)
[2018-03-19 20:00] VITALS: BP 147/58
[2018-03-19] MEDS: ATORVASTATIN 40 MG TABLET PO SCH (21:18)
--- NOTE | 2018-03-19 23:54 | NUR ---
MS RN NOTES CALLED DR LEYVA FOR ORDERS REGARDING PT COMPLAINING OF SHORTNESS OF BREATH. ORDERED CHEST XRAY AND BREATHING TREATMENT. WILL CONTINUE TO MONITOR PT CLOSELY.
[2018-03-20] VITALS (9 sets, daily range): BP systolic 97–146; BP diastolic 31–80
--- NOTE | 2018-03-20 06:20 | NUR ---
MS RN NOTES PT REFUSED TO BE CLEAN STATES SHE WANTS TO REST.
--- NOTE | 2018-03-20 06:47 | NUR ---
MS RN NOTES NO ACUTE CHANGES NOTED DURING THE SHIFT. PROVIDED COMFORT AND SAFETY. PT KEPT NPO. DUE MEDS GIVEN. WILL ENDORSE TO THE AM NURSE FOR CONTINUITY OF CARE.
[2018-03-20 07:14] LABS: CALCIUM, SERUM 7.9 mg/dL (8.5-10.1); CARBON DIOXIDE 25 mmol/L (21-32); CHLORIDE 96 mmol/L (98-107); CREATININE 4.2 mg/dL (0.6-1.3); GLUCOSE 68 mg/dL (74-106); POTASSIUM 4.7 mmol/L (3.5-5.1); SODIUM SERUM 132 mmol/L (136-145); UREA NITROGEN, BLOOD 41 mg/dL (7-18)
--- NOTE | 2018-03-20 08:00 | NUR ---
MS RN NOTES PATIENT IN BED ALERT, ORIENTED X3 NO SOB OR ACUTE DISTRESS NOTED. PATIENT WITH CAREGIVER AT BEDSIDE. BED IN LOW LOCKED POSITION. CALL LIGHT WITHIN REACH WILL CONTINUE TO MONITOR.
[2018-03-20] MEDS: BLOOD SUGAR DIAGNOSTIC 1 EACH STRIP IN SCH ×4 (08:05→22:08)
[2018-03-20] MEDS: CALCIUM ACETATE 667 MG TABLET PO SCH ×2 (08:07→16:34)
[2018-03-20] MEDS: glipiZIDE XL 2.5 MG TAB.OSM.24 PO SCH (08:07)
[2018-03-20] MEDS: CLOPIDOGREL BISULFATE 75 MG TABLET PO SCH (08:07)
[2018-03-20] MEDS: MUPIROCIN OINT 2% 22 GM TUBE SCH ×2 (08:09→22:09)
[2018-03-20] MEDS: CADEXOMER IODINE 40 GM TUBE TP SCH (08:10)
[2018-03-20] MEDS: DEXTROSE 50%-WATER 50 ML DISP.SYRIN IV PRN (08:53)
[2018-03-20] MEDS: DOXYCYCLINE 100 MG in IV D5W 100 ML IV SCH ×2 (09:00→22:35)
--- NOTE | 2018-03-20 09:00 | NUR ---
RN NOTES PATIENT RECEIVING HD UNABLE TO ADMINISTER VIBRAMYCIN.
--- NOTE | 2018-03-20 10:30 | NUR ---
MS RN NOTES PATIENT RECEIVING HD TOLERATING WELL, ONCE HD IS COMPLETE WILL TRANSFER TO ICU FOR ESOPHAGEAL ECHO. IV ATB WILL BE ADMINISTERED AFTER HD IS COMPLETE.
--- NOTE | 2018-03-20 11:00 | NUR ---
RN NOTES PATIENT TRANSFERRED TO ICU FOR SCHEDULED ESOPHAGEAL ECHO. IN STABLE CONDITION.
[2018-03-20] MEDS: CEFTRIAXONE 1 G in IV D5W 50 ML IV SCH (12:00)
--- NOTE | 2018-03-20 15:00 | NUR ---
MS RN NOTES PATIENT RETURNED FROM ICU POST BEVERLEY IN STABLE CONDITION WILL CONTINUE TO MONITOR.
--- NOTE | 2018-03-20 15:02 | NUR ---
RN NOTE 1130: Prepared patient for BEVERLEY, connected to monitor. Vpacing 100%. SBP 110's. Patient aware for the procedure. KEVON midline intact. 1215: Done with BEVERLEY by Dr. Campbell, patient tolerated procedure well. SBO 80's, still awaiting patient to be fully awake. 1450: Transferred patient via bed, VSS. Back to baseline, SBP 90-100's. Patient A/Ox3. Tolerated 2LPM of O2 via NC. No any significant changes noted.
[2018-03-20] MEDS: HYDROGEL DRESSING 90 GM TUBE TP SCH (15:48)
--- NOTE | 2018-03-20 18:51 | NUR ---
RN NOTES PATIENT IN BED RESTING NO SOB OR ACUTE DISTRESS NOTED. ALL DUE MEDICATIONS ADMINISTERED. ALL NEEDS MET. WILL ENDORSE TO PM SHIFT CAILIN.
--- NOTE | 2018-03-20 19:30 | NUR ---
MS/RN NOTES: RECEIVED PT. IN BED W/ HOB ELEVATED. W/ PRIVATE SITTER AT BEDSIDE. W/ O2 @ 2LPM VIA N/C SAT. 95%. DENIES ANY C/O CHEST PAIN OR SOB AT PRESENT. PER AM NURSE REPORT PT. HAD DIALYSIS TODAY W/ 2 L OUT. A/O X 4. ABLE TO MAKE NEEDS KNOWN. INCONTINENT OF B/B. HAS KEVON MIDLINE W/ DRESSING C/D/I . HAS LEFT UPPER CHEST WALL PACEMAKER. HAS RIGHT IJ DIALYSIS CATH W/ DRESSING C/D/I. HAD S/P BEVERLEY PER AM NURSE. CALL LIGHT W/ REACH. ALL NEEDS MEET. WILL CONTINUE TO MONITOR.
--- NOTE | 2018-03-20 20:20 | NUR ---
MS/RN NOTES: SpO2 MACHINE STARTED TO BEEPING. CHECKED PT. O2 SAT 88% @ 2LPM VIA N/C. PT. C/O HAVING SOB. " I CAN'T BREATH." O2 INCREASED TO 3 LPM VIA N/C. PT. STILL C/O HAVING DIFFICULTY BREATHING. O2 SAT DESAT TO 83-87%. O2 @ 6LPM VIA MASK. PAGES RT STAT TO GIVE BREATHING TREATMENT. RT CAME AND GAVE BREATHING TREATMENT PER PT. " IT IS HELPING BUT A LITTLE BIT." O2 SAT 88%. RESPIRATORY TREATMENT FINISHED PT. STILL C/O HAVING DIFFICULTY BREATHING. PT. S/P BEVERLEY TODAY. PAGED DR. BARRON ASSEMBLED WOOD PRODUCTS REPAIRER. WAITING FOR CALL BACK. INFORMED PT. AND CODING FILE CLERK. WILL CONTINUE TO MONITOR.
[2018-03-20] MEDS: ALBUTEROL FS 2.5 MG/0.5 ML VIAL.NEB NEB PRN ×2 (20:44→23:58)
[2018-03-20] MEDS: IPRATROPIUM NEB FS 0.5 MG/2.5 ML AMPUL.NEB NEB PRN ×2 (20:44→23:58)
--- NOTE | 2018-03-20 21:05 | NUR ---
MS/NOTES: RECEIVED CALL FROM DR. BARRON W/ ORDERS TO TRANSFER PT. TO ICU W/ 100% [id number] AND TITRATE O2 NEEDED. CHARGE NURSE KATHERINE MADE AWARE. RT. MADE AWARE.
--- NOTE | 2018-03-20 21:30 | NUR ---
MS/RN NOTES: TRANSPORTED PT. VIA BED TO RM # [id number] VIA ACLS PROTOCOL W/ ICU CHARGE NURSE.
--- NOTE | 2018-03-20 21:35 | NUR ---
RN/MS NOTES: REPORT GIVEN TO THERMOSTAT MECHANIC NURSE ICU .
--- NOTE | 2018-03-20 21:41 | NUR ---
CRUISE DIRECTOR NOTE. RECEIVED THE PT FROM MED/SURGE DESATURATED, WITH OXYGEN 2L NASAL CANNULA. PER DR BARRON NON REBREATHER 100% STARTED. ABG ORDERED. WILL CONTINUE TO MONITOR VITALS.
--- NOTE | 2018-03-20 21:52 | NUR ---
PROFESSOR OF COMMUNICATION. TRANSFER THE PT FROM MED/SURG PT AWAKE, ALERT, FOLLOW COMMANDS. PLASTIC BUBBLE PACKER SHOWING V PACING . WILL CONTINUE TO MONITOR VITALS.
[2018-03-20 22:02] LABS: ABG BASE EXCESS 1.1 mmol/L; ABG PCO2 28.4 mmHg (35.0-45.0); ABG PO2 469.3 mmHg (75.0-100.0); AaDO2 215.3 mmHg; COHb 0.3 % (0.5-1.5); MetHb 0.6 % (0.0-1.5); O2Hb 98.1 % (94.0-97.0); SITE, ABG Right Radial; VENT MODE, BG NRB
[2018-03-20] MEDS: RIFAMPIN 600 MG in IV NS 0.9% 100 ML IV SCH (22:07)
--- NOTE | 2018-03-20 22:08 | NUR ---
PT ON NRB AWAKE AND ALERT. ABG DONE. NOTIFIED HELICOPTER DISPATCHER SHEELA AND MATTHEW MOREIRA WITH THE RESULT. PT TITRATED TO NC 3L.
[2018-03-20] MEDS: ATORVASTATIN 40 MG TABLET PO SCH (22:10)
--- NOTE | 2018-03-20 22:14 | NUR ---
VENEER DRIER TAILER NOTE. ABG DONE, PH 7.530,PCO2 28.4,PO2 469.3,HCO3, 23.2, NON REBREATHER OFF . OXYGEN 3L VIA NASAL CANNULA STARTED. SAT 99%. PT HAS NO BREATHING PROBLEM, NO DISTRESS .DENIES CHEST PAIN, VITALS STABLE. WILL CONTINUE TO MONITOR VITALS.
--- NOTE | 2018-03-20 22:25 | NUR ---
DISPENSING AND MEASURING OPTICIAN NOTE. RECEIVED THE PT FROM MED /SURGE PT EXTREMITIES ARE COLD.
--- NOTE | 2018-03-20 22:47 | NUR ---
CAFE OPERATOR NOTE RECEIVED REPORT FROM JELLY CASTRO FOR TRANSFER OF CARE. WILL MONITOR.
[2018-03-20] MEDS: VANCOMYCIN 500 MG in IV D5W 100 ML IV PRN (23:56)
[2018-03-21] VITALS (22 sets, daily range): BP systolic 85–159; BP diastolic 32–87
--- NOTE | 2018-03-21 | NUR ---
CELL TENDER NOTE PT NOTED WITH EPISODE OF TACHYPNEA 30-40'S. ABG PREVIOUSLY DONE AND NORMAL. ON 3LPM VIA NC AND SATURATING 100%. C/O 8/10 GENERALIZED PAIN. SPOKE WITH GAS LEAK TESTER DR BARRON WITH ORDERS TO GIVE TRAMADOL 50MG Q6H PO PRN. CONFIRMED WITH PHARMACY TO MONITOR PT D/T CODEINE ALLERGY. WILL MONITOR.
--- NOTE | 2018-03-21 00:11 | NUR ---
PT GIVEN PRN BREATHING TX. PT IS VERY ANXIOUS AND STATED SHE CAN'T BREATH. SHE REMOVED THE MASK RN AT BEDSIDE. PLACED BACK ON 3L NC. O2 SAT 100%.
[2018-03-21] MEDS: TRAMADOL HCL 50 MG TABLET PO PRN (00:26)
[2018-03-21 04:47] LABS: CALCIUM, SERUM 7.7 mg/dL (8.5-10.1); CARBON DIOXIDE 25 mmol/L (21-32); CHLORIDE 99 mmol/L (98-107); CREATININE 3.5 mg/dL (0.6-1.3); GLUCOSE 135 mg/dL (74-106); POTASSIUM 4.4 mmol/L (3.5-5.1); SODIUM SERUM 134 mmol/L (136-145); UREA NITROGEN, BLOOD 30 mg/dL (7-18)
--- NOTE | 2018-03-21 07:20 | NUR ---
WEDDING FLORIST NOTE PT REMAINED STABLE DURING SHIFT. ALL NEEDS ATTENDED TO PROMPTLY. REPOSITIONED Q2H. HOB ELEVATED. WILL ENDORSE TO NEXT SHIFT FOR CONTINUITY OF CARE
[2018-03-21] MEDS: BLOOD SUGAR DIAGNOSTIC 1 EACH STRIP IN SCH ×4 (08:22→22:21)
[2018-03-21] MEDS: HYDROGEL DRESSING 90 GM TUBE TP SCH (08:22)
[2018-03-21] MEDS: CALCIUM ACETATE 667 MG TABLET PO SCH ×2 (08:22→17:39)
[2018-03-21] MEDS: CLOPIDOGREL BISULFATE 75 MG TABLET PO SCH (08:22)
[2018-03-21] MEDS: DOXYCYCLINE 100 MG in IV D5W 100 ML IV SCH (08:23)
[2018-03-21] MEDS: MUPIROCIN OINT 2% 22 GM TUBE SCH ×2 (08:32→22:23)
[2018-03-21] MEDS: glipiZIDE XL 2.5 MG TAB.OSM.24 PO SCH (09:29)
--- NOTE | 2018-03-21 13:45 | NUR ---
ICU/RN: HD complete, 2L out.
--- NOTE | 2018-03-21 14:00 | NUR ---
ICU/RN: Dr Torres at bedside; updated on pt status, cleared by pulmo for lower level of care. Per ok to downgrade to [facility].
--- NOTE | 2018-03-21 14:50 | NUR ---
ICU/RN: Pt transferred to [facility] in stable condition, no distress noted, VSS, breathing even and unlabored, O2 sat 97% on 3L/min via NC. Belongings transferred with pt. Bedside report given to MATTHEW Trinh for CAILIN.
--- NOTE | 2018-03-21 15:20 | NUR ---
RN NOTES RECEIVED PATIENT FROM ICU, PATIENT ALERT AND ORIENTED X4, ABLE TO MAKE NEEDS KNOWN, ON OXYGEN SUPPORT VIA NASAL CANNULA WITH 3 LPM, BREATHING EVEN AND UNLABORED, SATURATING WELL ON 99%, TELEMONITOR ATTACHED: V PACING WITH HR AT 95BPM, WITH GIULIA CATETHER ON THE RIGHT IJ, RIGHT UPPER MIDLINE, PATENT ON FLUSHING. PATIENT MADE COMFORTABLE IN BED, CALL LIGHT PLACED WITHIN EASY REACH, BED LOW AND LOCKED. FAMILY AT BEDSIDE. WILL CONTINUE TO MONITOR
--- NOTE | 2018-03-21 15:30 | NUR ---
RN NOTES BLOOD SUGAR AT 63, MEAL TRAY AT BEDSIDE. PATIENT ENCOURAGED TO EAT. WILL RECHECK BLOOD SUGAR.
--- NOTE | 2018-03-21 19:00 | NUR ---
RN NOTES RECHECKED BLOOD SUGAR AT 72 AT THE MOMENT. PATIENT ENCOURAGED TO EAT MORE AND VERBALIZE THAT WILL DO. WILL CONTINUE TO MONITOR PATIENT.
--- NOTE | 2018-03-21 19:38 | NUR ---
RN NOTES ENDORSED PATIENT FOR CONTINUITY OF CARE. NO ACUTE CHANGES THROUGH OUT THE SHIFT. ALL NEEDS ATTENDED AND MET.
[2018-03-21] MEDS: RIFAMPIN 600 MG in IV NS 0.9% 100 ML IV SCH (22:22)
[2018-03-21] MEDS: ATORVASTATIN 40 MG TABLET PO SCH (22:22)
[2018-03-22] VITALS (7 sets, daily range): BP systolic 94–147; BP diastolic 42–59
--- NOTE | 2018-03-22 07:05 | NUR ---
RN NOTES PATIENT MONITORED CLOSELY. PATIENT IS BREATHING EVEN AND UNLABORED WITH NO DISTRESS OBSERVED OVERNIGHT. ON 3LPM OF O2 VIA NC. V-PACING WITH HR IN THE 70-80s. KEVON MIDLINE IN PLACE, PATENT AND INTACT, ATB ORDERED. R IJ GIULIA IN PLACE. NEEDS ANTICIPATED AND MET. SAFETY AND COMFORT ENSURED. BED IN LOW AND LOCKED POSITION. CALL LIGHT IN REACH. CAREGIVER AT BEDSIDE AT ALL TIMES. PATIENT SLEPT COMFORTABLY, REFUSED AM LABS AND AM LAB DRAW, PER CAREGIVER AND PATIENT, SHE HAS NOT SLEPT COMFORTABLY AND LAST NIGHT WAS THE FIRST THAT PATIENT FELT COMFORTABLE AND STABLE. PATIENT'S COMFORT ENSURED, RESPECTED PATIENT'S RIGHTS. TURNED AND REPOSITIONED. ENDORSED ACCORDINGLY.
--- NOTE | 2018-03-22 07:15 | NUR ---
SECTION HAND HELPER INITIAL NOTES PT IN BED ASLEEP BUT AROUSABLE. ON 3L O2 HOB ELEVATED; SUPINE. NO SOB NOTED. IV SITE NO S/SX INFECTION. PATENT. PT SLEPT WELL PER PM NURSE. ON TELE VPACING 80. EDEMA NOTED BUE +1 PITTING. CAREGIVER AT BEDSIDE. NO PAIN/DISTRESS NOTED AT THIS TIME. CALL LIGHT WITHIN REACH. SAFETY MEASURES MAINTAINED.
--- NOTE | 2018-03-22 07:50 | NUR ---
JUICE TESTER NOTES BS 51MG/DL. ADMINISTERED D50 PER SLIDING SCALE PER MD ORDER.
[2018-03-22] MEDS: BLOOD SUGAR DIAGNOSTIC 1 EACH STRIP IN SCH ×4 (07:53→21:43)
[2018-03-22] MEDS: DEXTROSE 50%-WATER 50 ML DISP.SYRIN IV PRN ×2 (07:56→07:58)
[2018-03-22 08:16] LABS: CARBON DIOXIDE 28 mmol/L (21-32); CHLORIDE 101 mmol/L (98-107); CREATININE 4.1 mg/dL (0.6-1.3); GLUCOSE 53 mg/dL (74-106); POTASSIUM 4.7 mmol/L (3.5-5.1); SODIUM SERUM 138 mmol/L (136-145); UREA NITROGEN, BLOOD 37 mg/dL (7-18)
--- NOTE | 2018-03-22 08:45 | NUR ---
COMMERCIAL AIRLINE PILOT NOTES RECHECKED BS 130MG/DL. WILL CONT TO MONITOR.
[2018-03-22] MEDS: glipiZIDE XL 2.5 MG TAB.OSM.24 PO SCH (09:34)
[2018-03-22] MEDS: CALCIUM ACETATE 667 MG TABLET PO SCH ×2 (09:34→16:44)
[2018-03-22] MEDS: CLOPIDOGREL BISULFATE 75 MG TABLET PO SCH (09:34)
[2018-03-22] MEDS: HYDROGEL DRESSING 90 GM TUBE TP SCH (09:36)
[2018-03-22] MEDS: MUPIROCIN OINT 2% 22 GM TUBE SCH ×2 (09:36→21:48)
--- NOTE | 2018-03-22 09:43 | NUR ---
FEATHER EDGER NOTES DR BYRNE ROUNDED WITH PT. NOTIFIED PT THAT THEY WILL GIVE ANTIBIOTICS FOR A MONTH BEFORE DECIDING IF ICD SHOULD BE REMOVED.
--- NOTE | 2018-03-22 13:10 | NUR ---
ENGINEERING SYSTEMS ANALYST NOTES HD NURSE SUMIT DID CENTRAL LINE DRESSING CHANGE.
[2018-03-22] MEDS: ALBUMIN 25% 25 GM in PREMIX 1 EA IV PRN (14:36)
--- NOTE | 2018-03-22 14:46 | NUR ---
LABOR SUPERVISOR NOTES CM CALLED: PER DR MCDOWELL NO PLANS TO REMOVE ICD, CONTINUE ABX. CONT PLANS TO GO TO SECURITY SHIFT MANAGER ARU
--- NOTE | 2018-03-22 15:40 | NUR ---
GREEN ENERGY MARKETING ANALYST NOTES HD DIALYSIS START 1310: BP 106/54 HR 76 END AT 1540: 111/58 BP HR 83 1.8L OUT. PATIENT TIRED BUT TOLERATED AFTER.
--- NOTE | 2018-03-22 16:25 | NUR ---
ms rn first assist done w/ a net output of 1800ml, tolerated well, w/ stable vitals, patient care associate at bedside.
--- NOTE | 2018-03-22 16:42 | NUR ---
ms rn dr. rivera called w/ orders of stat right hip xray and right femur w/ ap lateral.
[2018-03-22] MEDS: TRAMADOL HCL 50 MG TABLET PO PRN (17:03)
--- NOTE | 2018-03-22 17:24 | NUR ---
MS RN PATIENT REFUSED TO HAVE PM CARE,DIAPER IS DRY THOUGHT,ALL NEEDS ATTENDED.
--- NOTE | 2018-03-22 19:30 | NUR ---
CAMPAIGN SPECIALIST ENDING NOTES PT ENDORSED TO PM NURSE FOR CONTINUED CARE. PT IS IN BED WITH CG AT BS. PT IS NOT IN DISTRESS. BED IN LOCKED/LOW POSITION. CALL LIGHT IN REACH. SAFETY PRECAUTIONS MAINTAINED.
[2018-03-22] MEDS: RIFAMPIN 600 MG in IV NS 0.9% 100 ML IV SCH (21:43)
[2018-03-22] MEDS: ATORVASTATIN 40 MG TABLET PO SCH (21:47)
[2018-03-22] MEDS: INSULIN REGULAR, HUMAN 100 UNIT/ML 3 ML VIAL SQ PRN (21:48)
[2018-03-23] VITALS: BP 95/40
[2018-03-23 04:00] VITALS: BP 106/45
--- NOTE | 2018-03-23 06:57 | NUR ---
RN CLOSING NOTE PATIENT WITH NO ACUTE DISTRESS AND DISCOMFORT. ON 3LPM OF O2 VIA NC, RESPIRATION EVEN AND UNLABORED. WOUND TREATMENT RENDERED. KEPT CLEAN AND DRY. TURNED AND REPOSITIONED. IV ATB ORDERED. NEEDS ANTICIPATED AND MET. SAFETY AND COMFORT ENSURED. CAREGIVER AT BEDSIDE AT ALL TIMES. CALL LIGHT IN REACH. WILL ENDORSE ACCORDINGLY.
--- NOTE | 2018-03-23 07:36 | NUR ---
INFORMATION SERVICES CONSULTANT OPENING NOTE RECEIVED PT LAYING IN BED W/ HOB ELEVATED, RESTING COMFORTABLY. PT IS A/O X4, AFEBRILE. RESPIRATIONS ARE EVEN AND UNLABORED, NOT IN ANY ACUTE DISTRESS NOTED. PT DENIES ANY PAIN AT THIS TIME, NO C/O SOB, N/V. CURRENTLY RECEIVING HD, USING R IJ GIULIA CATH AND ABLE TO TOLERATE WELL. KEVON MIDLINE INTACT, NO INFILTRATION NOTED. DRESSING KEPT CLEAN AND DRY. SAFETY MEASURES ARE IN PLACE. INSTRUCTED PT TO USE CALL LIGHT, CALL LIGHT IS LEFT WITHIN REACH. WILL CONTINUE TO MONITOR THROUGHOUT SHIFT FOR CONTINUITY OF CARE.
[2018-03-23 08:00] VITALS: BP 111/47
[2018-03-23 08:03] LABS: CALCIUM, SERUM 7.7 mg/dL (8.5-10.1); CARBON DIOXIDE 29 mmol/L (21-32); CHLORIDE 103 mmol/L (98-107); CREATININE 2.3 mg/dL (0.6-1.3); GLUCOSE 65 mg/dL (74-106); POTASSIUM 3.6 mmol/L (3.5-5.1); SODIUM SERUM 138 mmol/L (136-145); UREA NITROGEN, BLOOD 20 mg/dL (7-18)
[2018-03-23] MEDS: glipiZIDE XL 2.5 MG TAB.OSM.24 PO SCH (09:00)
--- NOTE | 2018-03-23 09:00 | NUR ---
DIALYSIS COMPLETED W/ 2L OUT.
[2018-03-23] MEDS: BLOOD SUGAR DIAGNOSTIC 1 EACH STRIP IN SCH ×4 (09:02→21:09)
[2018-03-23] MEDS: CALCIUM ACETATE 667 MG TABLET PO SCH ×2 (09:02→17:23)
[2018-03-23] MEDS: CLOPIDOGREL BISULFATE 75 MG TABLET PO SCH (09:02)
[2018-03-23] MEDS: HYDROGEL DRESSING 90 GM TUBE TP SCH (09:11)
[2018-03-23] MEDS: MUPIROCIN OINT 2% 22 GM TUBE SCH ×2 (09:12→21:15)
--- NOTE | 2018-03-23 09:13 | NUR ---
BLOOD SUGAR INITIAL 54, RECHECKED WITH RESULTS OF 60. PT IS CURRENTLY EATING, HOWEVER PT STATED SHE IS WAITING FOR HER FAMILY TO BRING HER FOOD. EDUCATED PT ON THE DIET ORDERED AND STATES HER FAMILY WILL BRING HER RENAL DIET FOOD. PT REFUSED DEXTROSE AND STATES SHE WILL EAT ONCE HER FAMILY BRINGS HER FOOD. PT SHOWS NO SIGNS OF HYPOGLYCEMIA AT THIS TIME. WILL CONTINUE TO MONITOR. GLIPIZIDE HELD D/T LOW BLOOD SUGAR.
[2018-03-23 12:00] VITALS: BP 100/40
--- NOTE | 2018-03-23 12:43 | NUR ---
BLOOD SUGAR 87. NO INSULIN GIVEN. ENCOURAGED PT TO BE COMPLIANT WITH MEALS.
[2018-03-23 16:00] VITALS: BP 95/47
--- NOTE | 2018-03-23 17:26 | NUR ---
BLOOD SUGAR 135. PT REFUSED INSULIN AT THIS TIME. SHOWS NO S/SX OF HYPO/HYPERGLYCEMIA. EXPLAINED THE RISKS AND BENEFITS OF ADMINISTRATION OF INSULIN, PT REFUSED AND STATED "I DONT EAT THAT MUCH SO DONT GIVE ME INSULIN." WILL CONTINUE TO MONITOR.
--- NOTE | 2018-03-23 18:48 | NUR ---
POWER REGULATOR CLOSING NOTES ALL DUE MEDS GIVEN, NEEDS MET AND RENDERED. PT REMAINS A/O X4, AFEBRILE. RESPIRATIONS ARE EVEN AND UNLABORED, NOT IN ANY ACUTE DISTRESS NOTED. PT DENIES ANY PAIN AT THIS TIME, NO C/O SOB, N/V NOTED. IV SITE INTACT, NO INFILTRATION NOTED. DRESSING KEPT CLEAN AND DRY. ELEVATED BUE TO REDUCE SWELLING. PT REPOSITION X4 DURING SHIFT, PT REFUSES TO BE REPOSITION Q2H. EXPLAINED THE RISKS OF NOT REPOSITION FREQUENTLY, PT STILL NOTED WITH NONCOMPLIANCE. SAFETY MEASURES ARE IN PLACE. CALL LIGHT IS LEFT WITHIN REACH. WILL ENDORSE TO NEXT SHIFT FOR CONTINUITY OF CARE.
[2018-03-23] MEDS ORDERED: NEPRO VAN 237 ML CAN PO PRN (19:00)
[2018-03-23 20:00] VITALS: BP 139/39
--- NOTE | 2018-03-23 20:00 | NUR ---
MANAGER TRANSPORT OPENING NOTES RECEIVED REPORT FROM AM RN. PATIENT A/A/O X3, ABLE TO MAKE NEEDS KNOWN IN TAGALOG & CHINESE. BREATHING EVEN & UNLABORED, TOLERATING O2 @ 3LPM VIA NC. DENIES ANY SOB OR DIFFICULTY BREATHING. ON TELE W/ V-PACING, HR 80S. RIGHT UPPER ARM MIDLINE INTACT & PATENT W/ DRESSING CDI, SALINE LOCKED. DENIES ANY PAIN OR DISCOMFORT @ THIS TIME. SAFETY MEASURES IN PLACE W/ SIDE RAILS UP & CALL LIGHT WITHIN REACH. INSTRUCTED TO CALL FOR ASSISTANCE. CAREGIVER @ BEDSIDE. REFUSES TO BE TURNED & REPOSITIONED @ THIS TIME. WILL CONTINUE TO MONITOR.
[2018-03-23] MEDS: ATORVASTATIN 40 MG TABLET PO SCH (21:09)
[2018-03-23] MEDS: RIFAMPIN 600 MG in IV NS 0.9% 100 ML IV SCH (21:09)
[2018-03-23] MEDS: INSULIN REGULAR, HUMAN 100 UNIT/ML 3 ML VIAL SQ PRN (21:29)
[2018-03-23] MEDS ORDERED: VANCOMYCIN 1 GM VIAL ONE (23:48)
[2018-03-24] VITALS (7 sets, daily range): BP systolic 82–128; BP diastolic 29–58
[2018-03-24] MEDS ORDERED: VANCOMYCIN 1 GM in IV D5W 250 ML IV ONE ×2
--- NOTE | 2018-03-24 | NUR ---
CORNER CUTTER MACHINE OPERATOR NOTES VANCO 1GM IV GIVEN POST HD. PER [facility] PHARMACIST'S NOTE, GIVE VANCO 1GM IV X1 IF TROUGH LEVEL >15. PT'S VANCO TROUGH LEVEL = 13. SPOKE TO AFTER HOURS PHARMACIST GRISEL TO CLARIFY, AND OK TO GIVE X1. WILL CLARIFY FURTHER IN AM.
--- NOTE | 2018-03-24 06:27 | NUR ---
BAND LEADER NOTES PATIENT CONTINUED TO REFUSE TURNING & REPOSITIONING & PATIENT CARE. EXPLAINED RISKS & BENEFITS OF NOT TURNING & REPOSITIONING BUT STILL REFUSED. OFFERED SEVERAL TIMES. CHARGE NURSE AWARE.
[2018-03-24 07:29] LABS: BASOPHILS # (AUTO) 0.1 /CMM (0.0-0.2); EOSINOPHILS % (AUTO) 2.3 % (0.0-6.0); HEMATOCRIT 26 % (33-45); HEMOGLOBIN 8.4 g/dL (11.5-14.8); LYMPHOCYTES # (AUTO) 2.1 /CMM (0.8-4.8); LYMPHOCYTES % (AUTO) 28.7 % (20.0-44.0); MEAN CORPUSCULAR HGB CONC 32 g/dl (31.0-36.0); MEAN CORPUSCULAR VOLUME 95 fL (82-100); MONOCYTES # (AUTO) 0.8 /CMM (0.1-1.30); MONOCYTES % (AUTO) 10.8 % (2.0-12.0); NEUTROPHILS # (AUTO) 4.2 /CMM (1.8-8.9); NEUTROPHILS % (AUTO) 57.2 % (43.0-81.0); PLATELET COUNT (AUTO) 72 /CMM (150-450); RDW COEFFICIENT OF VARIATION 23.2 (11.5-15.0); RED BLOOD CELL COUNT(AUTO) 2.75 MIL/uL (4.0-5.2); WHITE BLOOD COUNT (AUTO) 7.3 K/uL (4.3-11.0)
[2018-03-24 07:42] LABS: CALCIUM, SERUM 8.1 mg/dL (8.5-10.1); CARBON DIOXIDE 28 mmol/L (21-32); CHLORIDE 101 mmol/L (98-107); CREATININE 3.3 mg/dL (0.6-1.3); GLUCOSE 94 mg/dL (74-106); MAGNESIUM 1.8 mg/dL (1.8-2.4); PHOSPHORUS 2.9 mg/dL (2.5-4.9); POTASSIUM 4.2 mmol/L (3.5-5.1); SODIUM SERUM 138 mmol/L (136-145); UREA NITROGEN, BLOOD 27 mg/dL (7-18)
[2018-03-24] MEDS: BLOOD SUGAR DIAGNOSTIC 1 EACH STRIP IN SCH ×4 (07:43→21:36)
[2018-03-24 08:37] LABS: EOSINOPHILS % (MANUAL) 3 % (0-4); LYMPHOCYTES % (MANUAL) 22 % (16-48); MONOCYTES % (MANUAL) 8 % (0-11.0); NEUTROPHILS % (MANUAL) 67 (42-76)
[2018-03-24] MEDS: CLOPIDOGREL BISULFATE 75 MG TABLET PO SCH (08:43)
[2018-03-24] MEDS: glipiZIDE XL 2.5 MG TAB.OSM.24 PO SCH (08:43)
[2018-03-24] MEDS: CALCIUM ACETATE 667 MG TABLET PO SCH ×2 (08:43→18:45)
[2018-03-24] MEDS: MUPIROCIN OINT 2% 22 GM TUBE SCH ×2 (08:47→21:38)
[2018-03-24] MEDS: HYDROGEL DRESSING 90 GM TUBE TP SCH (08:47)
--- NOTE | 2018-03-24 08:57 | NUR ---
Caregiver fed patient 50% of breakfast. Patient repositioned from left to right side lying.
--- NOTE | 2018-03-24 09:00 | NUR ---
Refused pain medication for generalized pain 02/09.
[2018-03-24 09:54] LABS: ABG BASE EXCESS -0.4 mmol/L; ABG OXYGEN SATURATION 98.7 % (92.0-98.5); ABG PCO2 34.4 mmHg (35.0-45.0); ABG PH 7.448 (7.350-7.450); ABG PO2 399.9 mmHg (75.0-100.0); AaDO2 278.7 mmHg; COHb 0.2 % (0.5-1.5); MetHb 0.8 % (0.0-1.5); O2Hb 97.7 % (94.0-97.0); SITE, ABG Right Radial; VENT MODE, BG N/B
--- NOTE | 2018-03-24 09:54 | NUR ---
Podiatry rounds and MD noted shortness of breath so rapid response call, abg, and chest xray order. Peleg evaluating patient at this time.
--- NOTE | 2018-03-24 10:06 | NUR ---
Discussion with patient about anxiety if it is part of her history contributing to shortness of breath. She agrees. Dialysis nurse present for patient at this time.
--- NOTE | 2018-03-24 10:09 | NUR ---
ABG SEEN BY DR. MACHADO AND OK TO TITRATE DOWN O2 TO 6 LITERS AND START W/ HD.PT. CALMER ,SAT IMPROVES 96% ON N/C,KEEP HOB 45 DEGREES ANGLE.RR 24.
--- NOTE | 2018-03-24 10:10 | NUR ---
Reposition of patient to back with head of bed at 90 degrees.
--- NOTE | 2018-03-24 19:38 | NUR ---
HANDOFF TO NIGHT NURSE, MATTHEW GOMEZ.
--- NOTE | 2018-03-24 20:17 | NUR ---
CODE ENFORCEMENT SUPERVISOR OPENING NOTES RECEIVED REPORT FROM MOIRA CASTRO. PATIENT A/A/O X3, ABLE TO MAKE NEEDS KNOWN IN TAGALOG & TANZANIAN. BREATHING EVEN & UNLABORED, TOLERATING O2 @ 5-6LPM VIA NC. DENIES ANY SOB OR DIFFICULTY BREATHING. ON TELE W/ V-PACING, HR 84. RIGHT UPPER ARM MIDLINE INTACT & PATENT W/ DRESSING CDI, SALINE LOCKED. DENIES ANY PAIN OR DISCOMFORT @ THIS TIME. SAFETY MEASURES IN PLACE W/ SIDE RAILS UP & CALL LIGHT WITHIN REACH. INSTRUCTED TO CALL FOR ASSISTANCE. CAREGIVER @ BEDSIDE. REFUSES TO BE TURNED & REPOSITIONED @ THIS TIME. HOB KEPT @ 45-60 DEGREES TO PREVENT RESPIRATORY DISTRESS. WILL CONTINUE TO MONITOR.
[2018-03-24] MEDS: RIFAMPIN 600 MG in IV NS 0.9% 100 ML IV SCH (20:52)
[2018-03-24] MEDS: INSULIN REGULAR, HUMAN 100 UNIT/ML 3 ML VIAL SQ PRN (21:36)
[2018-03-24] MEDS: ATORVASTATIN 40 MG TABLET PO SCH (21:36)
[2018-03-24] MEDS: ALBUTEROL FS 2.5 MG/0.5 ML VIAL.NEB NEB PRN (22:09)
[2018-03-24] MEDS: IPRATROPIUM NEB FS 0.5 MG/2.5 ML AMPUL.NEB NEB PRN (22:09)
[2018-03-24] MEDS ORDERED: LORAZEPAM 1 MG TABLET PO ONE (22:30)
--- NOTE | 2018-03-24 23:00 | NUR ---
CARD STRIPPER NOTES PATIENT NOTED W/ DIFFICULTY BREATHING ON O2 @ 6LPM VIA NC BUT SATING @ 99%. RT CALLED TO GIVE PRN BREATHING TX D/T PT'S C/O DIFFICULTY BREATHING. ALSO NOTED W/ RESTLESSNESS & ANXIETY. RENAL GROUP CALLED & SPOKE TO ON-CALL BEATRICE TURK & RECEIVED ORDER FOR ATIVAN 2MG PO X1. NEW ORDER CARRIED OUT.
--- NOTE | 2018-03-24 23:30 | NUR ---
DIRECTOR OF OCCUPATIONAL THERAPY NOTES PATIENT NO LONGER W/ DIFFICULTY BREATHING & APPEARED MORE CALM AFTER PRN BREATHING TX & ATIVAN GIVEN. STILL SATING WELL @ 99-100%. WILL CONTINUE TO MONITOR.
[2018-03-25] VITALS: BP 119/38
[2018-03-25 04:00] VITALS: BP 106/56
[2018-03-25] MEDS: BLOOD SUGAR DIAGNOSTIC 1 EACH STRIP IN SCH ×4 (07:30→21:09)
[2018-03-25 07:37] LABS: BASOPHILS # (AUTO) 0.1 /CMM (0.0-0.2); BASOPHILS % (AUTO) 0.8 % (0.0-2.0); EOSINOPHILS % (AUTO) 2.5 % (0.0-6.0); HEMATOCRIT 25 % (33-45); LYMPHOCYTES # (AUTO) 1.5 /CMM (0.8-4.8); LYMPHOCYTES % (AUTO) 23.2 % (20.0-44.0); MEAN CORPUSCULAR HGB CONC 32 g/dl (31.0-36.0); MEAN CORPUSCULAR VOLUME 97 fL (82-100); MONOCYTES # (AUTO) 0.8 /CMM (0.1-1.30); MONOCYTES % (AUTO) 12.7 % (2.0-12.0); NEUTROPHILS % (AUTO) 60.8 % (43.0-81.0); PLATELET COUNT (AUTO) 69 /CMM (150-450); RED BLOOD CELL COUNT(AUTO) 2.56 MIL/uL (4.0-5.2); WHITE BLOOD COUNT (AUTO) 6.7 K/uL (4.3-11.0)
[2018-03-25 07:52] LABS: CALCIUM, SERUM 7.9 mg/dL (8.5-10.1); CARBON DIOXIDE 27 mmol/L (21-32); CHLORIDE 102 mmol/L (98-107); CREATININE 2.9 mg/dL (0.6-1.3); GLUCOSE 81 mg/dL (74-106); MAGNESIUM 1.8 mg/dL (1.8-2.4); PHOSPHORUS 2.6 mg/dL (2.5-4.9); SODIUM SERUM 138 mmol/L (136-145); UREA NITROGEN, BLOOD 22 mg/dL (7-18)
[2018-03-25 07:56] LABS: INR 1.46 (0.87-1.13)
[2018-03-25 08:00] VITALS: BP 102/50
[2018-03-25 08:55] LABS: NEUTROPHILS % (MANUAL) 70 (42-76)
[2018-03-25 08:56] LABS: EOSINOPHILS % (MANUAL) 3 % (0-4); LYMPHOCYTES % (MANUAL) 19 % (16-48); MONOCYTES % (MANUAL) 8 % (0-11.0)
[2018-03-25] MEDS: glipiZIDE XL 2.5 MG TAB.OSM.24 PO SCH (09:00)
--- NOTE | 2018-03-25 09:04 | NUR ---
Blood glucose 74mg/dL. Patient had one amp of d50% to prevent hypoglycemia during procedure. Patient to operating room.
[2018-03-25] MEDS ORDERED: HEPARIN SODIUM, PORCINE 1,000 UNIT/ML VIAL ONE (09:26)
[2018-03-25] MEDS ORDERED: LIDOCAINE 1% INJ 50 ML MDV IJ ONE (09:26)
[2018-03-25] MEDS ORDERED: FENTANYL PF 100MCG/2ML AMPUL ONE (09:33)
[2018-03-25] MEDS ORDERED: EPHEDRINE SULFATE IV 50MG VIAL ONE (10:28)
[2018-03-25] MEDS: DEXTROSE 50%-WATER 50 ML DISP.SYRIN IV PRN (12:14)
[2018-03-25] MEDS: CLOPIDOGREL BISULFATE 75 MG TABLET PO SCH (12:19)
[2018-03-25] MEDS: CALCIUM ACETATE 667 MG TABLET PO SCH ×2 (12:19→16:58)
[2018-03-25] MEDS: MUPIROCIN OINT 2% 22 GM TUBE SCH ×2 (12:20→20:51)
[2018-03-25] MEDS: HYDROGEL DRESSING 90 GM TUBE TP SCH (12:20)
[2018-03-25 12:28] VITALS: BP 96/55
[2018-03-25] MEDS: TRAMADOL HCL 50 MG TABLET PO PRN (17:25)
[2018-03-25] MEDS ORDERED: EPOETIN ALFA (10,000 UNIT) 10,000 UNIT/ML VIAL SQ ONE (17:30)
--- NOTE | 2018-03-25 19:24 | NUR ---
Handoff to night nurse MATTHEW Perez. Martell Veliz RN
--- NOTE | 2018-03-25 19:40 | NUR ---
CARGO AGENT INITIAL NOTES, RECEIVED PATIENT SLEEPING IN BED BUT EASILY AROUSABLE, ABLE TO MAKE NEEDS KNOWN, BREATHING EVEN & UNLABORED WITH OPTIMAL OXYGEN SATURATION LEVEL 97% AT THIS TIME, O2 @ 5-6LPM VIA NC. DENIES ANY SOB OR DIFFICULTY BREATHING, DENIES ANY PAIN OR DISCOMFORT AT THIS TIME, ON TELE V-PACING, HR 84. RIGHT UPPER ARM MIDLINE INTACT AND PATENT S/L, . ALL NEEDS PROVIDED, W/ SIDE RAILS UP AND CALL LIGHT WITHIN REACH, INSTRUCTED TO CALL FOR ASSISTANCE, CAREGIVER AT BEDSIDE, HOB KEPT AT ALL TIMES TO EXPAND LUNGS AND AVOID RESP PROBLEMS, WILL CONTINUE TO MONITOR CLOSELY.
[2018-03-25 20:00] VITALS: BP_SYST 99; BP_DIAS 32; BP_DIAS 37
[2018-03-25] MEDS: RIFAMPIN 600 MG in IV NS 0.9% 100 ML IV SCH (20:38)
[2018-03-25] MEDS ORDERED: MUPIROCIN OINT 2% 22 GM TUBE ONE (20:48)
--- NOTE | 2018-03-25 21:00 | NUR ---
CONTROL OPERATOR NOTES, INFORMED PATIENT THAT MONDAY NIGHT PER PROTOCOL PICTURES FOR SKIN ISSUES, AND IF IT WAS OK TO TAKE PICTURES OF HER SKIN ISSUES, AND SHE REFUSED, EXPLAINED RISKS AND BENEFITS 3X STILL REFUSED, WILL F/U LATER.
[2018-03-25] MEDS: ATORVASTATIN 40 MG TABLET PO SCH (21:09)
[2018-03-25] MEDS: INSULIN REGULAR, HUMAN 100 UNIT/ML 3 ML VIAL SQ PRN (21:12)
[2018-03-26] VITALS (8 sets, daily range): BP systolic 81–123; BP diastolic 40–71
--- NOTE | 2018-03-26 | NUR ---
CONVEYOR BELT INSTALLER NOTES, SUMMONED TO PATIENT'S ROOM AND EXPLAIN EXPLAINED AGAIN THE NECESSITY OF TAKING PICTURES OF THE SKIN ISSUES, SHE REFUSED AGAIN, EXPLAIN RISK AND BENEFITS AGAIN, CAREGIVER TRIED TO CONVINCE HER, CONGRESSIONAL ASSISTANT AT BEDSIDE TOO, STILL REFUSED. WILL CONTINUE TO MONITOR CLOSELY.
--- NOTE | 2018-03-26 06:56 | NUR ---
JEWEL BEARING TURNER INITIAL NOTES, PATIENT SLEEPING IN BED BUT EASILY AROUSABLE, BREATHING EVEN & UNLABORED WITH OPTIMAL OXYGEN SATURATION LEVEL 100% AT THIS TIME, O2 @ 5LPM VIA NC. DENIES ANY SOB OR DIFFICULTY BREATHING, ON TELE V-PACING, HR 70-80S. RIGHT UPPER ARM MIDLINE INTACT AND PATENT S/L, . ALL NEEDS PROVIDED, W/ SIDE RAILS UP AND CALL LIGHT WITHIN REACH, INSTRUCTED TO CALL FOR ASSISTANCE, NO SIGNIFICANT CHANGE IN CONDITION THROUGHOUT THE NIGHT, WILL CONTINUE ENDORSE CONTINUITY OF CARE TO ONCOMING NURSE. Addendum: 03/26/18 at 1999 by MAYURI HASSAN RN CLOSING GRAPHITE PAN DRIER TENDER NOTES
[2018-03-26 07:20] LABS: CALCIUM, SERUM 7.9 mg/dL (8.5-10.1); CARBON DIOXIDE 29 mmol/L (21-32); CHLORIDE 101 mmol/L (98-107); CREATININE 2.6 mg/dL (0.6-1.3); GLUCOSE 79 mg/dL (74-106); MAGNESIUM 1.8 mg/dL (1.8-2.4); PHOSPHORUS 2.4 mg/dL (2.5-4.9); SODIUM SERUM 137 mmol/L (136-145); UREA NITROGEN, BLOOD 20 mg/dL (7-18)
[2018-03-26] MEDS: BLOOD SUGAR DIAGNOSTIC 1 EACH STRIP IN SCH ×4 (07:30→21:06)
[2018-03-26] MEDS: MUPIROCIN OINT 2% 22 GM TUBE SCH ×2 (09:53→20:24)
[2018-03-26] MEDS: CLOPIDOGREL BISULFATE 75 MG TABLET PO SCH (09:54)
[2018-03-26] MEDS: CALCIUM ACETATE 667 MG TABLET PO SCH ×2 (09:54→17:57)
[2018-03-26] MEDS: HYDROGEL DRESSING 90 GM TUBE TP SCH (09:54)
[2018-03-26] MEDS: glipiZIDE XL 2.5 MG TAB.OSM.24 PO SCH (10:01)
[2018-03-26] MEDS: DEXTROSE 50%-WATER 50 ML DISP.SYRIN IV PRN (11:55)
[2018-03-26 13:29] LABS: BASOPHILS # (AUTO) 0.1 /CMM (0.0-0.2); BASOPHILS % (AUTO) 0.9 % (0.0-2.0); EOSINOPHILS % (AUTO) 3.2 % (0.0-6.0); HEMATOCRIT 24 % (33-45); HEMOGLOBIN 7.7 g/dL (11.5-14.8); LYMPHOCYTES # (AUTO) 1.6 /CMM (0.8-4.8); LYMPHOCYTES % (AUTO) 26.3 % (20.0-44.0); MEAN CORPUSCULAR HGB CONC 32 g/dl (31.0-36.0); MEAN CORPUSCULAR VOLUME 96 fL (82-100); MONOCYTES # (AUTO) 0.8 /CMM (0.1-1.30); MONOCYTES % (AUTO) 12.4 % (2.0-12.0); NEUTROPHILS # (AUTO) 3.5 /CMM (1.8-8.9); NEUTROPHILS % (AUTO) 57.2 % (43.0-81.0); PLATELET COUNT (AUTO) 58 /CMM (150-450); RDW COEFFICIENT OF VARIATION 22.6 (11.5-15.0); RED BLOOD CELL COUNT(AUTO) 2.51 MIL/uL (4.0-5.2); WHITE BLOOD COUNT (AUTO) 6.1 K/uL (4.3-11.0)
[2018-03-26 13:33] LABS: EOSINOPHILS % (MANUAL) 1 % (0-4); LYMPHOCYTES % (MANUAL) 18 % (16-48); MONOCYTES % (MANUAL) 18 % (0-11.0); NEUTROPHILS % (MANUAL) 63 (42-76)
--- NOTE | 2018-03-26 13:56 | NUR ---
Family point of contact David called and says the discharge is too fast. He wants a podiatry evaluation for the patient's toe nails and also needs to talk to Doctor Gage to tell him how he feels.
[2018-03-26] MEDS: ACETAMINOPHEN 325 MG TABLET PO PRN (15:21)
[2018-03-26] MEDS ORDERED: K PHOS NEUTRAL 250 MG TABLET PO ONE ×2 (15:30→18:30)
[2018-03-26] MEDS: MEGESTROL ACETATE SUSP 400 MG/10 ML UDC PO SCH (17:56)
--- NOTE | 2018-03-26 19:23 | NUR ---
Handoff to night nurse, MATTHEW Perez. Martell eVliz RN
--- NOTE | 2018-03-26 20:00 | NUR ---
RESOURCE ANALYST INITIAL NOTES, RECEIVED PATIENT AWAKE A/O X3 ABLE TO MAKE NEEDS KNOWN, BREATHING EVEN & UNLABORED WITH OPTIMAL OXYGEN SATURATION LEVEL 99% AT THIS TIME, O2 @ 5-LPM VIA NC. DENIES ANY SOB OR DIFFICULTY BREATHING, DENIES ANY PAIN OR DISCOMFORT AT THIS TIME, ON TELE V-PACING, RIGHT UPPER ARM MIDLINE INTACT AND PATENT S/L, ALL NEEDS PROVIDED, W/ SIDE RAILS UP AND CALL LIGHT WITHIN REACH, INSTRUCTED TO CALL FOR ASSISTANCE, CAREGIVER AT BEDSIDE, HOB KEPT AT ALL TIMES TO EXPAND LUNGS AND AVOID RESP PROBLEMS, WILL CONTINUE TO MONITOR CLOSELY.
[2018-03-26] MEDS: RIFAMPIN 600 MG in IV NS 0.9% 100 ML IV SCH (20:24)
[2018-03-26] MEDS: INSULIN REGULAR, HUMAN 100 UNIT/ML 3 ML VIAL SQ PRN (21:06)
[2018-03-26] MEDS: ATORVASTATIN 40 MG TABLET PO SCH (21:06)
[2018-03-27] VITALS: BP 105/38
[2018-03-27 04:00] VITALS: BP 115/38
--- NOTE | 2018-03-27 06:50 | NUR ---
SAMPLE CARD MAKER CLOSING NOTES, PATIENT AWAKE IN BED A/O ABLE TO MAKE NEEDS KNOWN, BREATHING EVEN & UNLABORED WITH OPTIMAL OXYGEN SATURATION LEVEL 98% AT THIS TIME, O2 @ 5-LPM VIA NC. DENIES ANY SOB OR DIFFICULTY BREATHING, DENIES ANY PAIN OR DISCOMFORT AT THIS TIME, ON TELE V-PACING, RIGHT UPPER ARM MIDLINE INTACT AND PATENT S/L, ALL NEEDS PROVIDED, W/ SIDE RAILS UP AND CALL LIGHT WITHIN REACH, STABLE DURING THE [employer]TR COMPANY TRUCK DRIVER, INSTRUCTED TO CALL FOR ASSISTANCE, CAREGIVER AT BEDSIDE, WILL ENDORSE CONTINUITY OF CARE TO ONCOMING NURSE.
[2018-03-27] MEDS: BLOOD SUGAR DIAGNOSTIC 1 EACH STRIP IN SCH ×4 (07:30→21:22)
--- NOTE | 2018-03-27 07:31 | NUR ---
Repositioned patient to left side. Night nurse notes patient family member request for wound care.
[2018-03-27 08:00] VITALS: BP 105/50
[2018-03-27] MEDS: CALCIUM ACETATE 667 MG TABLET PO SCH ×2 (09:11→17:05)
[2018-03-27] MEDS: CLOPIDOGREL BISULFATE 75 MG TABLET PO SCH (09:12)
[2018-03-27] MEDS: TRAMADOL HCL 50 MG TABLET PO PRN ×2 (09:12→17:06)
[2018-03-27] MEDS: MUPIROCIN OINT 2% 22 GM TUBE SCH ×2 (09:13→21:11)
[2018-03-27] MEDS: MEGESTROL ACETATE SUSP 400 MG/10 ML UDC PO SCH ×2 (09:13→17:06)
[2018-03-27] MEDS: HYDROGEL DRESSING 90 GM TUBE TP SCH (09:14)
[2018-03-27] MEDS: glipiZIDE XL 2.5 MG TAB.OSM.24 PO SCH (09:16)
[2018-03-27 12:22] VITALS: BP 109/56
[2018-03-27] MEDS: ACETAMINOPHEN 325 MG TABLET PO PRN (12:48)
[2018-03-27 16:00] VITALS: BP_SYST 109; BP_DIAS 32; BP_DIAS 56
[2018-03-27] MEDS: INSULIN REGULAR, HUMAN 100 UNIT/ML 3 ML VIAL SQ PRN (17:29)
--- NOTE | 2018-03-27 19:30 | NUR ---
REGIONAL TRANSFER LIAISON INITIAL NOTES, RECEIVED PATIENT AWAKE A/O X3 ABLE TO MAKE NEEDS KNOWN, BREATHING EVEN & UNLABORED WITH OPTIMAL OXYGEN SATURATION LEVEL 98% AT THIS TIME, O2 @ 5-LPM VIA NC. DENIES ANY SOB OR DIFFICULTY BREATHING, COMPLAINS OF DISCOMFORT AT THIS TIME AND REPOSITION PROVIDED FOR PRESSURE RELIEF, ON TELE V-PACING, RIGHT UPPER ARM MIDLINE INTACT AND PATENT S/L, ALL NEEDS PROVIDED, W/ SIDE RAILS UP AND CALL LIGHT WITHIN REACH, INSTRUCTED TO CALL FOR ASSISTANCE, CAREGIVER AT BEDSIDE, HOB KEPT AT ALL TIMES PER PATIENT REQUEST, WILL CONTINUE TO MONITOR CLOSELY.
--- NOTE | 2018-03-27 19:31 | NUR ---
Handoff to night nurse MATTHEW Perez. Martell Veliz RN
[2018-03-27 20:00] VITALS: BP 90/48
[2018-03-27] MEDS: ATORVASTATIN 40 MG TABLET PO SCH (21:12)
[2018-03-28] VITALS: BP 96/52
[2018-03-28 04:00] VITALS: BP 98/44
--- NOTE | 2018-03-28 06:53 | NUR ---
COST AND RISK ANALYSIS MANAGER CLOSING NOTES, PATIENT AWAKE IN BED ALERT AND ORIENTED ABLE TO MAKE NEEDS KNOWN, BREATHING EVEN & UNLABORED WITH OPTIMAL OXYGEN SATURATION LEVEL 99% AT THIS TIME, O2 @ 5-LPM VIA NC. DENIES ANY SOB OR DIFFICULTY BREATHING, DENIES ANY PAIN OR DISCOMFORT AT THIS TIME, ON TELE V-PACING, RIGHT UPPER ARM MIDLINE INTACT AND PATENT S/L, ALL NEEDS PROVIDED, REPOSITIONING PROVIDED Q2HRS AND PRN, , STABLE DURING THE ASSOCIATE ART DIRECTOR, INSTRUCTED TO CALL FOR ASSISTANCE, CAREGIVER AT BEDSIDE, WILL ENDORSE CONTINUITY OF CARE TO ONCOMING NURSE.
[2018-03-28] MEDS: BLOOD SUGAR DIAGNOSTIC 1 EACH STRIP IN SCH ×3 (07:30→17:30)
[2018-03-28 08:00] VITALS: BP 90/44
[2018-03-28] MEDS: MEGESTROL ACETATE SUSP 400 MG/10 ML UDC PO SCH ×2 (09:24→18:46)
[2018-03-28] MEDS: CLOPIDOGREL BISULFATE 75 MG TABLET PO SCH (09:24)
[2018-03-28] MEDS: glipiZIDE XL 2.5 MG TAB.OSM.24 PO SCH (09:24)
[2018-03-28] MEDS: CALCIUM ACETATE 667 MG TABLET PO SCH ×2 (09:24→18:46)
[2018-03-28] MEDS: HYDROGEL DRESSING 90 GM TUBE TP SCH (09:25)
[2018-03-28] MEDS: MUPIROCIN OINT 2% 22 GM TUBE SCH (09:26)
[2018-03-28 16:00] VITALS: BP 91/48
--- NOTE | 2018-03-28 18:37 | NUR ---
Patient refused picture for wound care. She does desaturate during repositioning into position for the picture to 83% on 5 liters of oxygen via nasal cannula for example with repositioning.
[2018-03-28 19:04] VITALS: BP 91/48
[2018-03-28] MEDS: ALBUTEROL FS 2.5 MG/0.5 ML VIAL.NEB NEB PRN (19:08)
[2018-03-28] MEDS: IPRATROPIUM NEB FS 0.5 MG/2.5 ML AMPUL.NEB NEB PRN (19:08)
--- NOTE | 2018-03-28 19:21 | NUR ---
Late entry for 1445 patient discharge via ambulance to [facility].
--- NOTE | 2018-03-28 19:58 | NUR ---
Handoff report called to Toni Harris, at [facility]. Martell Veliz RN
[2018-03-28 20:00] VITALS: BP 95/52
--- NOTE | 2018-03-28 21:50 | NUR ---
RN M/S NOTE PATIENT IS AOX3 PICKUP FROM [facility], SPEECH CLEAR, ABLE TO MAKE NEEDS KNOWN, ON 3L O2 VIA NC, NO S/SX OF RESPIRATORY OR CARDIAC DISTRESS, BEING TRANSPORTED TO [facility], V/S 104/50 HR 89 T 98.1 O2 SAT 100%, PT HAS NO VOICED CONCERNS, RIJ PERMA CATH PRESENT AND KEVON MIDLINE PATENT FLUSHING WELL, LEFT CHEST WALL PACEMAKER, SAFETY MAINTAINED.
== END 2018-03-28 21:50 | DRG 981 ==
LOC: ER 13:31 → TELE1 15:51 → MEDSG1 03-07 09:46 → ICU 03-10 08:59 → TELE-TD 03-12 05:54 → MEDSG1 03-13 10:05 → ICU 03-20 10:05 → MEDSG1 03-20 14:53 → ICU 03-20 21:11 → TELE1 03-21 14:48 → MEDSG1 03-28 08:48
PROVIDERS: ADMIT Internal Medicine; ATTEND Internal Medicine
PROC: 5A09357 Assistance with Respiratory Ventilation, Less than 24 Consecutive Hours, Continuous Positive Airway Pressure (ICD-10-PCS; 2018-03-06)
PROC: 5A1D70Z Performance of Urinary Filtration, Intermittent, Less than 6 Hours Per Day (ICD-10-PCS; 2018-03-07)
PROC: 05H533Z Insertion of Infusion Device into Right Subclavian Vein, Percutaneous Approach (ICD-10-PCS; 2018-03-10)
PROC: 5A1D70Z Performance of Urinary Filtration, Intermittent, Less than 6 Hours Per Day (ICD-10-PCS; 2018-03-10)
PROC: B546ZZA Ultrasonography of Right Subclavian Vein, Guidance (ICD-10-PCS; 2018-03-10)
PROC: 5A1D70Z Performance of Urinary Filtration, Intermittent, Less than 6 Hours Per Day (ICD-10-PCS; 2018-03-11)
PROC: 5A1D70Z Performance of Urinary Filtration, Intermittent, Less than 6 Hours Per Day (ICD-10-PCS; 2018-03-13)
PROC: 05PYX3Z Removal of Infusion Device from Upper Vein, External Approach (ICD-10-PCS; 2018-03-14)
PROC: 0JH63XZ Insertion of Tunneled Vascular Access Device into Chest Subcutaneous Tissue and Fascia, Percutaneous Approach (ICD-10-PCS; principal; 2018-03-15)
PROC: B543ZZA Ultrasonography of Right Jugular Veins, Guidance (ICD-10-PCS; principal; 2018-03-15)
PROC: 05HM33Z Insertion of Infusion Device into Right Internal Jugular Vein, Percutaneous Approach (ICD-10-PCS; principal; 2018-03-15)
PROC: 5A1D70Z Performance of Urinary Filtration, Intermittent, Less than 6 Hours Per Day (ICD-10-PCS; 2018-03-16)
PROC: 5A1D70Z Performance of Urinary Filtration, Intermittent, Less than 6 Hours Per Day (ICD-10-PCS; 2018-03-18)
PROC: 0KBN0ZZ Excision of Right Hip Muscle, Open Approach (ICD-10-PCS; 2018-03-19)
PROC: 0KBP0ZZ Excision of Left Hip Muscle, Open Approach (ICD-10-PCS; 2018-03-19)
PROC: B24BZZ4 Ultrasonography of Heart with Aorta, Transesophageal (ICD-10-PCS; 2018-03-20)
PROC: 5A1D70Z Performance of Urinary Filtration, Intermittent, Less than 6 Hours Per Day (ICD-10-PCS; 2018-03-20)
PROC: 5A1D70Z Performance of Urinary Filtration, Intermittent, Less than 6 Hours Per Day (ICD-10-PCS; 2018-03-21)
PROC: 5A1D70Z Performance of Urinary Filtration, Intermittent, Less than 6 Hours Per Day (ICD-10-PCS; 2018-03-22)
PROC: 5A1D70Z Performance of Urinary Filtration, Intermittent, Less than 6 Hours Per Day (ICD-10-PCS; 2018-03-23)
PROC: 5A1D70Z Performance of Urinary Filtration, Intermittent, Less than 6 Hours Per Day (ICD-10-PCS; 2018-03-24)
PROC: 0JHD3XZ Insertion of Tunneled Vascular Access Device into Right Upper Arm Subcutaneous Tissue and Fascia, Percutaneous Approach (ICD-10-PCS; 2018-03-25)
PROC: 5A1D70Z Performance of Urinary Filtration, Intermittent, Less than 6 Hours Per Day (ICD-10-PCS; 2018-03-25)
PROC: 05HM33Z Insertion of Infusion Device into Right Internal Jugular Vein, Percutaneous Approach (ICD-10-PCS; 2018-03-25)
PROC: B543ZZA Ultrasonography of Right Jugular Veins, Guidance (ICD-10-PCS; 2018-03-25)
PROC: 5A1D70Z Performance of Urinary Filtration, Intermittent, Less than 6 Hours Per Day (ICD-10-PCS; 2018-03-27)
DX: T80.211A Bloodstream infection due to central venous catheter, initial encounter (principal); L89.154 Pressure ulcer of sacral region, stage 4; N18.6 End stage renal disease; R65.21 Severe sepsis with septic shock; J96.01 Acute respiratory failure with hypoxia; A41.02 Sepsis due to Methicillin resistant Staphylococcus aureus; I50.43 Acute on chronic combined systolic (congestive) and diastolic (congestive) heart failure; I33.0 Acute and subacute infective endocarditis; I13.2 Hypertensive heart and chronic kidney disease with heart failure and with stage 5 chronic kidney disease, or end stage renal disease; E87.1 Hypo-osmolality and hyponatremia; J90 Pleural effusion, not elsewhere classified; E11.22 Type 2 diabetes mellitus with diabetic chronic kidney disease; Z99.2 Dependence on renal dialysis; Z79.84 Long term (current) use of oral hypoglycemic drugs; I25.10 Atherosclerotic heart disease of native coronary artery without angina pectoris; E87.6 Hypokalemia; D69.6 Thrombocytopenia, unspecified; D63.1 Anemia in chronic kidney disease; Y92.129 Unspecified place in nursing home as the place of occurrence of the external cause; Y84.8 Other medical procedures as the cause of abnormal reaction of the patient, or of later complication, without mention of misadventure at the time of the procedure; Z98.1 Arthrodesis status; E11.649 Type 2 diabetes mellitus with hypoglycemia without coma; E78.5 Hyperlipidemia, unspecified; Z88.1 Allergy status to other antibiotic agents; Z88.5 Allergy status to narcotic agent; Z79.4 Long term (current) use of insulin; Z79.899 Other long term (current) drug therapy; Z79.82 Long term (current) use of aspirin; E83.51 Hypocalcemia; F32.9 Major depressive disorder, single episode, unspecified; M10.9 Gout, unspecified; Z86.73 Personal history of transient ischemic attack (TIA), and cerebral infarction without residual deficits; I25.5 Ischemic cardiomyopathy; I25.2 Old myocardial infarction; I27.20 Pulmonary hypertension, unspecified; I08.1 Rheumatic disorders of both mitral and tricuspid valves; M85.9 Disorder of bone density and structure, unspecified; Z82.49 Family history of ischemic heart disease and other diseases of the circulatory system; Z82.3 Family history of stroke; Z79.02 Long term (current) use of antithrombotics/antiplatelets; B95.62 Methicillin resistant Staphylococcus aureus infection as the cause of diseases classified elsewhere
CPT/HCPCS: 36415; 36569; 36600; 71045-TC; 73502; 73552; 80048-TC; 80053-TC; 80061-TC; 80076-TC; 80202-TC; 82803-TC; 82962-TC; 83605-TC; 83735-TC; 83880; 84100-TC; 84484-TC; 85025-TC; 85730-TC; 86850-TC; 87040-TC; 87070-TC; 87081-TC; 87186-TC; 90935-TC; 93307-TC; 93312-TC; 93971-TC; 94760-TC; 94799-TC; 97110-TC; 97112-TC; 97530-TC; 99082-TC; A4216; A4606; A6248; A6253; A6402; A6403; C1750; J0696; J0885; J1644; J1815; J1940; J2543; J2704; J3010; J3370; J3475; J3490; J7030; J7050; J7060; P9047; Z7610